=== PATIENT | female | born 1975 | race American Indian/Alaskan Native ===

== ENCOUNTER 2017-09-04 05:50 | Emergency (ER) | payer BC ==
[2017-09-04] MEDS ORDERED: Aspirin 81 MG Tab.Chew PO ONE (06:00)
[2017-09-04] MEDS ORDERED: Sodium Chloride 0.9% 10 ML Syringe FLUSH PRN (06:00)
[2017-09-04] MEDS ORDERED: Morphine 4 MG/ML Syringe IVPUSH PRN (06:00)
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
[2017-09-04] MEDS ORDERED: HYDROmorphone 0.5 MG/0.5 ML SYRINGE IVPUSH ONE (06:12)
--- NOTE | 2017-09-04 09:14 | CR ---
Chest: Portable view of the chest was obtained. Comparison: No prior chest x-ray. Heart size and mediastinum are normal. Lungs are clear. Bony structures are unremarkable. Impression: 1. Nothing acute is seen on portable chest x-ray. Diagnostic code #1
== END 2017-09-04 07:27 | disposition home or self-care (01) ==
LOC: JD.ED 05:50
DX: R09.1 Pleurisy (principal); E11.9 Type 2 diabetes mellitus without complications; I10 Essential (primary) hypertension; I25.10 Atherosclerotic heart disease of native coronary artery without angina pectoris; F17.200 Nicotine dependence, unspecified, uncomplicated; Z79.82 Long term (current) use of aspirin; Z79.899 Other long term (current) drug therapy; Z79.4 Long term (current) use of insulin
CPT/HCPCS: 36415; 71045; 80053; 84484; 84703; 85025; 85379; 93005; 96374; 99285; J1170; J7050; 93010; 99284-25

== ENCOUNTER 2018-07-30 16:41 | Emergency (ER) | payer BC ==
[2018-07-30] MEDS ORDERED: Sodium Chloride 0.9% 10 ML Syringe FLUSH PRN (17:09)
--- NOTE | 2018-07-30 18:28 | EDM.PDOC ---
ED HPI GENERAL MEDICAL PROBLEM - General Chief Complaint: Chest Pain Stated Complaint: [facility] Time Seen by Provider: 07/30/18 16:55 Source of Information: Reports: Patient History Limitations: Reports: No Limitations - History of Present Illness INITIAL COMMENTS - FREE TEXT/NARRATIVE: 42-year-old female arrives via [facility] for evaluation and treatment of chest pain. Patient reports on Saturday she started feeling ill with body aches. States that on Saturday morning she had some chest pain that was a sudden onset located on the left side of her chest. She states she has been using anxiety medication and and antacids but she has not felt any better. Patient reports today she was not feeling well with fatigue, body aches and decreased appetite. She reports then around 1430 today she developed sudden onset of chest pressure, dizziness, pressure in her head, lightheadedness, numbness and tingling to her left arm. She states that she felt she was "having a heart attack ". Patient does not have any cardiac history and has never had an OR previously. She is expressing current symptoms of chills, headaches and bodyaches. She denies any cough, syncope or vomiting. She denies any pain or swelling in her legs. She reports that she did feel nauseous. Patient received nitroglycerin, oxygen, aspirin and morphine by a [facility] and she reports that this has improved her symptoms. Patient was seen in the ER approximately 1 year ago with similar symptoms. Had a complete cardiac workup done; was diagnosed with pleurisy. She reports her symptoms today seem similar to about one year ago. Patient type II diabetic. Reports that her sugars have been running in the 190s to 250s. Patient is also a smoker and smokes 3 or 4 cigarettes a day. Left Upper Chest Pain Score (Numeric/FACES): 9 - Related Data Allergies Allergy/AdvReac Type Severity Reaction Status Date / Time No Known Allergies Allergy Verified 09/04/17 06:00 Home Meds: Home Meds ALPRAZolam [Alprazolam] 1 mg PO Q8HR PRN #20 tablet 09/04/17 [Rx] Aspirin [Halfprin] 81 mg PO DAILY 09/04/17 [History] Hydrocodone/Acetaminophen [Hydrocodon-Acetaminophen 5-325] 1 - 2 each PO Q6HR PRN #10 tablet 09/04/17 [Rx] Insulin Aspart Protam & Aspart [Novolog Mix 70-30 Flexpen Syrn] 5 units SQ TID 09/04/17 [History] Insulin Detemir [Levemir Flextouch] 32 unit SQ DAILY 09/04/17 [History] Lisinopril [Zestril] 10 mg PO DAILY 09/04/17 [History] Simvastatin [Zocor] 40 mg PO BEDTIME 09/04/17 [History] glipiZIDE [Glipizide Xl] 5 mg PO 09/04/17 [History] metFORMIN [Glucophage XR] 1,000 mg PO BIDMEALS 09/04/17 [History] Past Medical History Cardiovascular History: Reports: High Cholesterol, Hypertension Psychiatric History: Reports: Anxiety Endocrine/Metabolic History: Reports: Diabetes, Type I Social & Family History - Tobacco Use Smoking Status *Q: Current Every Day Smoker Years of Tobacco use: 25 Packs/Tins Daily: 0.4 - Recreational Drug Use Recreational Drug Use: No ED ROS GENERAL - Review of Systems Review Of Systems: See Below Constitutional: Reports: Chills, Fatigue, Other (Body aches). Denies: Fever Respiratory: Reports: Pleuritic Chest Pain. Denies: Cough Cardiovascular: Reports: Chest Pain, Lightheadedness. Denies: Syncope GI/Abdominal: Reports: Nausea. Denies: Abdominal Pain, Vomiting Neurological: Reports: Numbness (Left arm), Tingling (Left arm) ED EXAM, GENERAL - Physical Exam Exam: See Below Exam Limited By: No Limitations General Appearance: Alert, WD/WN, No Apparent Distress, Obese Ears: Normal External Exam, Normal Canal, Hearing Grossly Normal, Normal TMs Nose: Normal Inspection Throat/Mouth: Normal Inspection, Normal Lips, Normal Voice, No Airway Compromise Respiratory/Chest: No Respiratory Distress, Lungs Clear, Normal Breath Sounds Cardiovascular: Normal Peripheral Pulses, Regular Rate, Rhythm, No Murmur Neurological: Alert, Oriented, Normal Cognition Psychiatric: Normal Affect, Normal Mood Skin Exam: Warm, Dry, Normal Color EKG INTERPRETATION EKG Date: 07/30/18 Time: 16:45 Rhythm: NSR Rate (Beats/Min): 91 EKG Interpretation Comments: Normal sinus rhythm at 91 bpm. Initial poor R-wave progression. Mildly decreased full digital cortical leads. T-wave flattening in V3 through V6. Q waves in 3 and aVF consistent old inferior wall OR. QTC is mildly prolonged with a QTC of 474. Reviewed by myself and Dr. Walls. Course - Vital Signs Last Recorded V/S: Last Vital Signs Temp 98.6 F 07/30/18 16:41 Pulse 94 07/30/18 16:41 Resp 23 H 07/30/18 16:41 BP 148/96 H 07/30/18 16:41 Pulse Ox 93 L 07/30/18 16:41 - Orders/Labs/Meds Orders: Active Orders 24 hr Category Date Time Status Cardiac Monitoring [RC] . DIRECTED Care 07/30/18 17:09 Active EKG Documentation Completion [RC] ASDIRECTED Care 07/30/18 16:49 Active Peripheral IV Care [RC] . DIRECTED Care 07/30/18 17:10 Active Chest 2V [CR] Stat Exams 07/30/18 17:09 Taken Sodium Chloride 0.9% [Saline Flush] Med 07/30/18 17:09 Active 10 ml FLUSH ASDIRECTED PRN Peripheral IV Insertion Adult [OM.PC] Routine Oth 07/30/18 17:08 Ordered EKG 12 Lead [EK] Stat Ther 07/30/18 16:49 Ordered Medication Orders Sodium Chloride (Saline Flush) 10 ml FLUSH ASDIRECTED PRN PRN Reason: Keep Vein Open Last Admin: 07/30/18 17:14 Dose: 10 ml Labs: Laboratory Tests 07/30/18 07/30/18 07/30/18 Range/Units 17:20 17:20 17:20 WBC 6.73 (3.98-10.04) K/mm3 RBC 4.91 (3.98-5.22) M/mm3 Hgb 12.9 (11.2-15.7) gm/L Hct 39.7 (34.1-44.9) % MCV 80.9 (79.4-94.8) fl MCH 26.3 (25.6-32.2) pg MCHC 32.5 (32.2-35.5) g/dl RDW Std Deviation 44.2 (36.4-46.3) fL Plt Count 286 (182-369) K/mm3 MPV 9.3 L (9.4-12.3) fl Neut % (Auto) 74.2 H (34.0-71.1) % Lymph % (Auto) 15.8 L (19.3-51.7) % Ellis % (Auto) 7.4 (4.7-12.5) % Eos % (Auto) 1.9 (0.7-5.8) Baso % (Auto) 0.3 (0.1-1.2) % Neut # (Auto) 4.99 (1.56-6.13) K/mm3 Lymph # (Auto) 1.06 L (1.18-3.74) K/mm3 Ellis # (Auto) 0.50 H (0.24-0.36) K/mm3 Eos # (Auto) 0.13 (0.04-0.36) K/mm3 Baso # (Auto) 0.02 (0.01-0.08) K/mm3 D-Dimer, Quantitative 0.27 (0.19-0.50) mg/L Sodium 137 (136-145) mEq/L Potassium 4.3 (3.5-5.1) mEq/L Chloride 99 (98-107) mEq/L Carbon Dioxide 26 (21-32) mEq/L Anion Gap 16.3 H (5-15) BUN 12 (7-18) mg/dL Creatinine 0.9 (0.55-1.02) mg/dL Est Cr Clr Drug Dosing 86.84 mL/min Estimated GFR (MDRD) > 60 (>60) mL/min BUN/Creatinine Ratio 13.3 L (14-18) Glucose 237 H (74-106) mg/dL Calcium 9.4 (8.5-10.1) mg/dL Total Bilirubin 0.4 (0.2-1.0) mg/dL AST 113 H (15-37) U/L ALT 105 H (14-59) U/L Alkaline Phosphatase 82 (46-116) U/L CK-MB (CK-2) 0.9 (0-3.6) ng/ml Troponin I < 0.017 (0.00-0.056) ng/mL Total Protein 8.2 (6.4-8.2) g/dl Albumin 4.0 (3.4-5.0) g/dl Globulin 4.2 gm/dL Albumin/Globulin Ratio 1.0 (1-2) Meds: Medications Generic Name Dose Route Start Last Admin Trade Name Freq PRN Reason Stop Dose Admin Sodium Chloride 10 ml 07/30/18 17:09 07/30/18 17:14 Saline Flush FLUSH 10 ml ASDIRECTED PRN Administration Keep Vein Open Discontinued Medications Generic Name Dose Route Start Last Admin Trade Name Yoselin PRN Reason Stop Dose Admin Ketorolac Tromethamine 30 mg 07/30/18 19:28 07/30/18 19:31 Toradol IVPUSH 07/30/18 19:29 30 mg ONETIME ONE Administration - Radiology Interpretation Free Text/Narrative:: Chest x-ray, two-view shows no acute intrathoracic process. - Re-Assessments/Exams Free Text/Narrative Re-Assessment/Exam: 07/30/18 19:37 Reviewed the labs, EKG and chest x-ray with the patient. I do feel this is likely a viral upper respiratory infection and pleurisy causing her chest pain. Recommend NSAIDs. Will discharge home tonight. Discharge instructions as documented. Departure - Departure Time of Disposition: 19:38 Disposition: Home, Self-Care 01 Reason for Transfer *Q: Other Condition: Good Clinical Impression: Viral upper respiratory illness, Pleurisy Instructions: Viral Respiratory Infection, [id number], Pleurisy, [id number] Referrals: PCP,None [Primary Care Provider] - Forms: ED Department Discharge Additional Instructions: Recommend [id number] NSAIDs such as ibuprofen or Motrin. Take these with food as NSAIDs can be hard on your stomach. Recommend fluids such as Gatorade or Powerade. Follow-up with your primary care provider if your symptoms persist beyond 2 weeks. Please return to the ER if your symptoms change or worsen. - My Orders Last 24 Hours: My Active Orders 07/30/18 16:49 EKG Documentation Completion [RC] ASDIRECTED EKG 12 Lead [EK] Stat 07/30/18 17:08 Peripheral IV Insertion Adult [OM.PC] Routine 07/30/18 17:09 Cardiac Monitoring [RC] . DIRECTED Chest 2V [CR] Stat Sodium Chloride 0.9% [Saline Flush] 10 ml FLUSH ASDIRECTED PRN 07/30/18 17:10 Peripheral IV Care [RC] . DIRECTED - Assessment/Plan Last 24 Hours: My Active Orders 07/30/18 16:49 EKG Documentation Completion [RC] ASDIRECTED EKG 12 Lead [EK] Stat 07/30/18 17:08 Peripheral IV Insertion Adult [OM.PC] Routine 07/30/18 17:09 Cardiac Monitoring [RC] . DIRECTED Chest 2V [CR] Stat Sodium Chloride 0.9% [Saline Flush] 10 ml FLUSH ASDIRECTED PRN 07/30/18 17:10 Peripheral IV Care [RC] . DIRECTED
[2018-07-30] MEDS ORDERED: Ketorolac 30 MG/ML SDV IVPUSH ONE (19:28)
--- NOTE | 2018-07-31 08:34 | CR ---
Chest: Two views of the chest were obtained. Comparison: Prior chest x-ray of 09/04/17. Heart size and mediastinum are within normal limits. Lungs are clear. Bony structures are unremarkable. Surgical clips appear to be present within the upper right abdomen. Impression: 1. Nothing acute is appreciated on two-view chest x-ray. Diagnostic code #2
== END 2018-07-30 19:47 | disposition home or self-care (01) ==
LOC: JD.ED 16:41
DX: J06.9 Acute upper respiratory infection, unspecified (principal); R09.1 Pleurisy; F17.210 Nicotine dependence, cigarettes, uncomplicated; E10.9 Type 1 diabetes mellitus without complications; I10 Essential (primary) hypertension; E78.00 Pure hypercholesterolemia, unspecified; F41.9 Anxiety disorder, unspecified; Z79.82 Long term (current) use of aspirin; Z79.899 Other long term (current) drug therapy
CPT/HCPCS: 36415; 71046; 80053; 82553; 84484; 85025; 85379; 87804; 93005; 96374; 99285; J1885; 93010; 99284

== ENCOUNTER 2018-08-21 14:42 | Emergency (ER) | payer BC ==
--- NOTE | 2018-08-21 15:05 | EDM.PDOC ---
ED HPI GENERAL MEDICAL PROBLEM - General Chief Complaint: Abdominal Pain Stated Complaint: [facility] Time Seen by Provider: 08/21/18 15:04 Source of Information: Reports: Patient, RN Notes Reviewed - History of Present Illness INITIAL COMMENTS - FREE TEXT/NARRATIVE: 42-year-old female has been brought here [facility] for evaluation of abdominal pain. This started about 4 days ago and is been somewhat generalized but mostly upper mid abdomen. The pain is worsened over the last day or 2. She's had a lot of nausea but no vomiting. Has had also some episodes of diarrhea that started also shortly after the discomfort. That was quite watery for a couple of days and now some loose stools today. Appetite is markedly diminished. She states that there were get-togethers last weekend with family in high school graduation and there was food eaten that it then brought by various families she states a few other people are reported to also "have gotten sick with abdominal pain, nausea and diarrhea". She does have history of prior cholecystectomy. She has had some chills but no definite fever. Bilateral Upper Abdomen Pain Score (Numeric/FACES): 5 - Related Data Allergies Allergy/AdvReac Type Severity Reaction Status Date / Time No Known Allergies Allergy Verified 08/21/18 14:47 Home Meds: Home Meds ALPRAZolam [Alprazolam] 1 mg PO Q8HR PRN #20 tablet 09/04/17 [Rx] Aspirin [Halfprin] 81 mg PO DAILY 09/04/17 [History] Simvastatin [Zocor] 40 mg PO BEDTIME 09/04/17 [History] metFORMIN [Glucophage XR] 1,000 mg PO BIDMEALS 09/04/17 [History] Acetaminophen/HYDROcodone [[place] 325-5 MG] 1 tab PO Q6H PRN #20 tablet 08/21/18 [Rx] Cetirizine [ZyrTEC] 10 mg PO DAILY 08/21/18 [History] Enalapril [Vasotec] 10 mg PO DAILY 08/21/18 [History] Insulin Aspart [NovoLOG] 5 units SUBCUT TIDAC 08/21/18 [History] Liraglutide [Victoza] 1.8 mg SUBCUT DAILY 08/21/18 [History] Meloxicam 7.5 mg PO DAILY PRN 08/21/18 [History] Mirtazapine 45 mg PO QPM PRN 08/21/18 [History] Ondansetron [Zofran ODT] 4 mg PO Q6H PRN #10 tab.dis 08/21/18 [Rx] Past Medical History Cardiovascular History: Reports: High Cholesterol, Hypertension Gastrointestinal History: Reports: Cholelithiasis Psychiatric History: Reports: Anxiety Endocrine/Metabolic History: Reports: Diabetes, Type I - Past Surgical History GI Surgical History: Reports: Other (See Below) Other GI Surgeries/Procedures: removal of gall stones Social & Family History - Tobacco Use Smoking Status *Q: Current Some Day Smoker Years of Tobacco use: 20 Packs/Tins Daily: 0.1 - Caffeine Use Caffeine Use: Reports: Soda - Recreational Drug Use Recreational Drug Use: No ED ROS GENERAL - Review of Systems Review Of Systems: See Below Constitutional: Reports: Chills. Denies: Fever HEENT: Denies: Throat Pain Respiratory: Denies: Shortness of Breath Cardiovascular: Denies: Chest Pain GI/Abdominal: Reports: Abdominal Pain, Diarrhea, Nausea. Denies: Constipation, Hematochezia, Melena, Vomiting Musculoskeletal: Reports: No Symptoms Skin: Reports: No Symptoms Neurological: Reports: No Symptoms ED EXAM, GI/ABD - Physical Exam Exam: See Below General Appearance: Alert, Mild Distress (Patient did receive Zofran and Toradol whileen route here to [place]) Eyes: Bilateral: Normal Appearance Throat/Mouth: Normal Inspection, Normal Oropharynx Head: Atraumatic. No: Facial Swelling Neck: Supple, Full Range of Motion Respiratory/Chest: No Respiratory Distress, Lungs Clear, Normal Breath Sounds Cardiovascular: Regular Rate, Rhythm GI/Abdominal Exam: Tender (Upper mid abdomen and mid abdomen). No: Guarding, Rebound Back Exam: No: CVA Tenderness (L), CVA Tenderness (R) Extremities: Normal Inspection, Normal Range of Motion Neurological: Alert, Oriented, No Motor/Sensory Deficits Skin Exam: Warm, Dry, Normal Color Course - Vital Signs Last Recorded V/S: Last Vital Signs Temp 98.3 F 08/21/18 14:43 Pulse 81 08/21/18 14:43 Resp 16 08/21/18 14:43 BP 153/82 H 08/21/18 14:43 Pulse Ox 95 08/21/18 14:43 - Orders/Labs/Meds Orders: Active Orders 24 hr Category Date Time Status Peripheral IV Care [RC] . DIRECTED Care 08/21/18 15:18 Active Sodium Chloride 0.9% [Normal Saline] 1,000 ml Med 08/21/18 15:30 Active IV ONETIME Sodium Chloride 0.9% [Saline Flush] Med 08/21/18 15:17 Active 10 ml FLUSH ASDIRECTED PRN Peripheral IV Insertion Adult [OM.PC] Stat Oth 08/21/18 15:18 Ordered Medication Orders Sodium Chloride (Normal Saline) 1,000 mls @ 999 mls/hr IV ONETIME EMEKA Last Admin: 08/21/18 15:40 Dose: 999 mls/hr Sodium Chloride (Saline Flush) 10 ml FLUSH ASDIRECTED PRN PRN Reason: Keep Vein Open Last Admin: 08/21/18 17:55 Dose: 10 ml Admin: 08/21/18 15:40 Dose: 10 ml Labs: Laboratory Tests 08/21/18 08/21/18 Range/Units 15:35 15:35 WBC 4.76 (3.98-10.04) K/mm3 RBC 4.48 (3.98-5.22) M/mm3 Hgb 11.6 (11.2-15.7) gm/L Hct 36.6 (34.1-44.9) % MCV 81.7 (79.4-94.8) fl MCH 25.9 (25.6-32.2) pg MCHC 31.7 L (32.2-35.5) g/dl RDW Std Deviation 44.5 (36.4-46.3) fL Plt Count 258 (182-369) K/mm3 MPV 9.6 (9.4-12.3) fl Neut % (Auto) 67.5 (34.0-71.1) % Lymph % (Auto) 23.1 (19.3-51.7) % [place] % (Auto) 6.1 (4.7-12.5) % Eos % (Auto) 2.3 (0.7-5.8) Baso % (Auto) 0.4 (0.1-1.2) % Neut # (Auto) 3.21 (1.56-6.13) K/mm3 Lymph # (Auto) 1.10 L (1.18-3.74) K/mm3 [place] # (Auto) 0.29 (0.24-0.36) K/mm3 Eos # (Auto) 0.11 (0.04-0.36) K/mm3 Baso # (Auto) 0.02 (0.01-0.08) K/mm3 Sodium 135 L (136-145) mEq/L Potassium 3.8 (3.5-5.1) mEq/L Chloride 100 (98-107) mEq/L Carbon Dioxide 25 (21-32) mEq/L Anion Gap 13.8 (5-15) BUN 11 (7-18) mg/dL Creatinine 0.7 (0.55-1.02) mg/dL Est Cr Clr Drug Dosing 111.65 mL/min Estimated GFR (MDRD) > 60 (>60) mL/min BUN/Creatinine Ratio 15.7 (14-18) Glucose 307 H (74-106) mg/dL Calcium 8.5 (8.5-10.1) mg/dL Total Bilirubin 0.3 (0.2-1.0) mg/dL AST 131 H (15-37) U/L ALT 129 H (14-59) U/L Alkaline Phosphatase 82 (46-116) U/L Total Protein 7.1 (6.4-8.2) g/dl Albumin 3.3 L (3.4-5.0) g/dl Globulin 3.8 gm/dL Albumin/Globulin Ratio 0.9 L (1-2) Lipase 598 H (73-393) U/L Meds: Medications Generic Name Dose Route Start Last Admin Trade Name Freq PRN Reason Stop Dose Admin Sodium Chloride 1,000 mls @ 999 mls/hr 08/21/18 15:30 08/21/18 15:40 Normal Saline IV 999 mls/hr ONETIME EMEKA Administration Sodium Chloride 10 ml 08/21/18 15:17 08/21/18 17:55 Saline Flush FLUSH 10 ml ASDIRECTED PRN Administration Keep Vein Open Discontinued Medications Generic Name Dose Route Start Last Admin Trade Name Freq PRN Reason Stop Dose Admin Diatrizoate Meglum/Diatrizoate Sod 60 ml 08/21/18 17:43 08/21/18 17:55 Gastrografin 37% PO 08/21/18 17:44 60 ml ONETIME ONE Administration Hydromorphone HCl 0.5 mg 08/21/18 16:49 08/21/18 17:23 Dilaudid IVPUSH 08/21/18 16:50 0.5 mg ONETIME ONE Administration Iohexol 100 ml 08/21/18 17:42 08/21/18 17:55 Omnipaque-300 IVPUSH 08/21/18 17:43 100 ml ONETIME ONE Administration Metoclopramide HCl 5 mg 08/21/18 15:18 08/21/18 15:40 Reglan IVPUSH 08/21/18 15:19 5 mg ONETIME ONE Administration - Re-Assessments/Exams Free Text/Narrative Re-Assessment/Exam: 08/21/18 16:51 Lipase did come back elevated at 598, white blood count was normal AST and ALT very mildly elevated. Bilirubin 0.3. Other labs as documented. As of the elevated lipase have ordered abdominal CT with IV and oral contrast. 08/21/18 18:53 CT of abdomen do show fatty infiltration of the liver, no other acute findings. See radiology report for details. She does feel much better after medication received up at the [facility] prior to discharge and also the 5 mg morphine in route. We did give further 0.5 mg Dilaudid IV and also Reglan IV while here in the ED. She states her pain is almost completely gone. She's had no further nausea or vomiting while here in the ED. She does feel up to going home. Discharge instructions as documented. Departure - Departure Time of Disposition: 18:44 Disposition: Home, Self-Care 01 Condition: Fair Clinical Impression: Pancreatitis Qualifiers: Pancreatitis type: unspecified pancreatitis type Acute pancreatitis complication: no infection or necrosis Abdominal pain Qualifiers: Abdominal location: upper abdomen, unspecified Qualified Code(s): R10.10 - Upper abdominal pain, unspecified Diarrhea Qualifiers: Diarrhea type: unspecified type Qualified Code(s): R19.7 - Diarrhea, unspecified - Discharge Information Prescriptions: Acetaminophen/HYDROcodone [[place] 325-5 MG] 1 tab PO Q6H PRN #20 tablet PRN Reason: Pain Ondansetron [Zofran ODT] 4 mg PO Q6H PRN #10 tab.dis PRN Reason: Nausea/Vomiting Referrals: PCP,None [Primary Care Provider] - Forms: ED Department Discharge Additional Instructions: Rest, clear liquids until tomorrow afternoon, than very careful bland diet as tolerated, best to eat small amounts of food at a time only until pain resolving. Avoid milk and dairy products for now. Tylenol every 6-8 hours if needed for mild to moderate discomfort or hydrocodone if needed for more severe pain. Do not drive or work when taking hydrocodone. Do not take Tylenol and hydrocodone at the same time. Avoid all alcohol for now. Follow-up at the [facility] in about 4-5 days for recheck. Call for appointment. Return to ED as needed if symptoms worsening in any way. - My Orders Last 24 Hours: My Active Orders 08/21/18 15:17 Sodium Chloride 0.9% [Saline Flush] 10 ml FLUSH ASDIRECTED PRN 08/21/18 15:18 Peripheral IV Care [RC] . DIRECTED Peripheral IV Insertion Adult [OM.PC] Stat 08/21/18 15:30 Sodium Chloride 0.9% [Normal Saline] 1,000 ml IV ONETIME - Assessment/Plan Last 24 Hours: My Active Orders 08/21/18 15:17 Sodium Chloride 0.9% [Saline Flush] 10 ml FLUSH ASDIRECTED PRN 08/21/18 15:18 Peripheral IV Care [RC] . DIRECTED Peripheral IV Insertion Adult [OM.PC] Stat 08/21/18 15:30 Sodium Chloride 0.9% [Normal Saline] 1,000 ml IV ONETIME
[2018-08-21] MEDS ORDERED: Metoclopramide 10 MG/2 ML SDV IVPUSH ONE (15:18)
[2018-08-21] MEDS ORDERED: Sodium Chloride 0.9% 1,000 ML IV SCH (15:30)
[2018-08-21] MEDS: Sodium Chloride 0.9% 10 ML Syringe FLUSH PRN ×2 (15:40→17:55)
[2018-08-21] MEDS ORDERED: HYDROmorphone 0.5 MG/0.5 ML Syringe IVPUSH ONE (16:49)
[2018-08-21] MEDS ORDERED: Iohexol 647 MG/ML 100 ML Bottle IVPUSH ONE (17:42)
[2018-08-21] MEDS ORDERED: Diatrizoate Meglumine/Diatrizoate Sodium 37% 120 ML Bottle PO ONE (17:43)
--- NOTE | 2018-08-21 18:26 | CT ---
CT abdomen and pelvis Technique: Multiple axial sections were obtained from above the dome of the diaphragm inferiorly through the pubic symphysis. Intravenous contrast was utilized. Oral contrast also seen. Delayed images were obtained through the bladder. Comparison: No prior abdominal imaging is available. Findings: Slight bibasilar atelectasis is seen. Liver shows diffuse fatty infiltration. No focal abnormality is appreciated within the liver. Surgical clips are seen from prior cholecystectomy. Spleen appears within normal limits. Adrenal glands show no nodule. Pancreas appears within normal limits. No inflammatory change is seen around the pancreas. Kidneys show contrast enhancement without hydronephrosis or mass. Small cyst is noted within the mid left kidney measuring 1.3 cm. Kidneys otherwise appear normal. Delayed images shows contrast within the bladder. Abdominal aorta shows no aneurysm. No retroperitoneal adenopathy or mesenteric abnormalities are seen. Small fat-containing umbilical hernia is incidentally noted. No pelvic mass or adenopathy is seen. No free fluid or inflammatory change is noted. Appendix is not seen with certainty. Bone window settings were reviewed which appear within normal limits for the patient's age. Impression: 1. Fatty infiltration within the liver. Other incidental findings. 2. Nothing acute is appreciated on CT study of the abdomen and pelvis. Diagnostic code #2
== END 2018-08-21 18:57 | disposition home or self-care (01) ==
LOC: JD.ED 14:42
DX: K85.90 Acute pancreatitis without necrosis or infection, unspecified (principal); R19.7 Diarrhea, unspecified; I10 Essential (primary) hypertension; E10.9 Type 1 diabetes mellitus without complications; F41.9 Anxiety disorder, unspecified; F17.210 Nicotine dependence, cigarettes, uncomplicated; Z79.899 Other long term (current) drug therapy; Z79.82 Long term (current) use of aspirin; Z79.84 Long term (current) use of oral hypoglycemic drugs
CPT/HCPCS: 36415; 74177; 80053; 83690; 85025; 96361; 96374; 96375; 99284; J1170; J2765; J7040; Q9963; Q9967

== ENCOUNTER 2018-12-29 08:33 | Inpatient (IN) | payer BC ==
[~2018-12-29 08:33] MED LIST: Sodium Phosphate 30 MMOLE in Sodium Chloride 0.9% 250 ML IV PRN
[2018-12-29] MEDS ORDERED: FLU Vacc QS2019-20(6MOS+)/PF 60 MCG/0.5 ML SYRINGE IM ONE (09:00)
[2018-12-29] MEDS ORDERED: Ondansetron 4 MG/2 ML SDV IVPUSH ONE (09:11)
[2018-12-29] MEDS ORDERED: Sodium Chloride 0.9% 10 ML Syringe FLUSH PRN ×2 (09:11→09:23)
[2018-12-29] MEDS ORDERED: Sodium Chloride 0.9% 1,000 ML IV STA (09:11)
[2018-12-29] MEDS ORDERED: HYDROmorphone 1 MG/ML Syringe IVPUSH ONE (09:12)
[2018-12-29] MEDS ORDERED: Pantoprazole 40 MG Vial IVPUSH ONE (09:13)
[2018-12-29] MEDS ORDERED: Diatrizoate Meglumine/Diatrizoate Sodium 37% 120 ML Bottle PO ONE (09:23)
[2018-12-29] MEDS ORDERED: Iopamidol 612 MG/ML 100 ML Bottle IVPUSH ONE (09:23)
--- NOTE | 2018-12-29 10:43 | EDM.PDOC ---
ED HPI GENERAL MEDICAL PROBLEM - General Chief Complaint: Gastrointestinal Problem Stated Complaint: VOMITING AND DEHYDRATED Time Seen by Provider: 12/29/18 08:47 Source of Information: Reports: Patient, Family History Limitations: Reports: No Limitations - History of Present Illness INITIAL COMMENTS - FREE TEXT/NARRATIVE: The patient presents with RLQ abdominal pain, nausea and vomiting. This started about 3 days ago. She has been vomiting up dark emesis the past few times. She still has her appendix and gallbladder. She has no fever, chills, cough, congestion or runny nose. She has no dysuria or hematuria. She has no diarrhea. Last BM was yesterday. She is type II diabetic. Onset: Gradual Duration: Day(s): Location: Reports: Abdomen Quality: Reports: Sharp Severity: Moderate Improves with: Reports: None Worsens with: Reports: None Associated Symptoms: Reports: Loss of Appetite, Nausea/Vomiting. Denies: Chest Pain, Cough, Fever/Chills, Headaches, Shortness of Breath Bilateral Abdomen Pain Score (Numeric/FACES): 8 - Related Data Allergies Allergy/AdvReac Type Severity Reaction Status Date / Time No Known Allergies Allergy Verified 12/29/18 08:41 Home Meds: Home Meds Aspirin [Halfprin] 81 mg PO DAILY 09/04/17 [History] Simvastatin [Zocor] 40 mg PO BEDTIME 09/04/17 [History] metFORMIN [Glucophage XR] 1,000 mg PO BIDMEALS 09/04/17 [History] Enalapril [Vasotec] 10 mg PO DAILY 08/21/18 [History] Insulin Aspart [NovoLOG] 5 units SUBCUT TIDAC 08/21/18 [History] Liraglutide [Victoza] 1.8 mg SUBCUT DAILY 08/21/18 [History] Mirtazapine 45 mg PO QPM PRN 08/21/18 [History] Past Medical History Cardiovascular History: Reports: High Cholesterol, Hypertension Gastrointestinal History: Reports: Other (See Below) Other Gastrointestinal History: galstones [employer] History: Reports: Psychiatric History: Reports: Anxiety Endocrine/Metabolic History: Reports: Diabetes, Type I Social & Family History - Family History Family Medical History: Noncontributory - Tobacco Use Smoking Status *Q: Current Every Day Smoker Years of Tobacco use: 20 Packs/Tins Daily: 0.2 - Caffeine Use Caffeine Use: Reports: Soda - Recreational Drug Use Recreational Drug Use: No ED ROS GENERAL - Review of Systems Review Of Systems: See Below Constitutional: Reports: No Symptoms HEENT: Reports: No Symptoms Respiratory: Reports: No Symptoms Cardiovascular: Reports: No Symptoms Endocrine: Reports: No Symptoms GI/Abdominal: Reports: Abdominal Pain, Nausea, Vomiting : Reports: No Symptoms Musculoskeletal: Reports: No Symptoms Skin: Reports: No Symptoms ED EXAM, GI/ABD - Physical Exam Exam: See Below Exam Limited By: No Limitations General Appearance: Alert, No Apparent Distress Ears: Normal External Exam Nose: Normal Inspection Head: Atraumatic, Normocephalic Neck: Normal Inspection Respiratory/Chest: No Respiratory Distress, Lungs Clear, Normal Breath Sounds Cardiovascular: Regular Rate, Rhythm, No Edema, No Murmur GI/Abdominal Exam: Soft, No Organomegaly, No Mass, Tender Back Exam: Normal Inspection Extremities: Normal Inspection Neurological: Alert, Oriented, No Motor/Sensory Deficits Course - Vital Signs Last Recorded V/S: Last Vital Signs Temp 96.9 F 12/29/18 08:39 Pulse 127 H 12/29/18 08:39 Resp 20 12/29/18 08:57 BP 159/86 H 12/29/18 08:57 Pulse Ox 100 12/29/18 08:57 - Orders/Labs/Meds Orders: Active Orders 24 hr Category Date Time Status Patient Status [ADT] Routine ADT 12/29/18 12:41 Active Accu Check [Blood Glucose Check, Bedside] [RC] ONETIME Care 12/29/18 12:32 Active Communication Order [RC] ASDIRECTED Care 12/29/18 12:54 Active EKG Documentation Completion [RC] STAT Care 12/29/18 12:40 Active Influenza Vaccine Charge [RC] .DISCHARGE Care 12/29/18 08:49 Active Oxygen Therapy [RC] PRN Care 12/29/18 12:41 Active Peripheral IV Care [RC] . DIRECTED Care 12/29/18 09:11 Active Up With Assistance [RC] ASDIRECTED Care 12/29/18 12:40 Active VTE/DVT Education [RC] PER UNIT ROUTINE Care 12/29/18 12:41 Active Vital Signs [RC] Q4H Care 12/29/18 12:41 Active Nothing per Oral Now Diet [DIET] Diet 12/29/18 Dinner Active Chest 2V [CR] Stat Exams 12/29/18 12:40 Taken A1C [GLYCOSYLATED HEMOGLOBIN,HGBA1C] [CHEM] Stat Lab 12/29/18 12:50 Ordered BASIC METABOLIC PANEL,BMP [CHEM] Q4H Lab 12/29/18 16:40 Ordered BASIC METABOLIC PANEL,BMP [CHEM] Q4H Lab 12/29/18 20:40 Ordered BASIC METABOLIC PANEL,BMP [CHEM] Q4H Lab 12/30/18 00:40 Ordered BASIC METABOLIC PANEL,BMP [CHEM] Q4H Lab 12/30/18 04:40 Ordered BASIC METABOLIC PANEL,BMP [CHEM] Q4H Lab 12/30/18 08:40 Ordered BASIC METABOLIC PANEL,BMP [CHEM] Q4H Lab 12/30/18 12:40 Ordered BASIC METABOLIC PANEL,BMP [CHEM] Stat Lab 12/29/18 13:22 Received BLOOD GAS VENOUS [BG] Stat Lab 12/29/18 12:43 Ordered KETONES,BLOOD [CHEM] Q8H Lab 12/29/18 16:40 Ordered KETONES,BLOOD [CHEM] Q8H Lab 12/30/18 00:40 Ordered KETONES,BLOOD [CHEM] Q8 Lab 12/30/18 08:40 Ordered KETONES,BLOOD [CHEM] Q8H Lab 12/30/18 16:40 Ordered KETONES,BLOOD [CHEM] Q8 Lab 12/31/18 00:40 Ordered KETONES,BLOOD [CHEM] Q8 Lab 12/31/18 08:40 Ordered LIPID PANEL [CHEM] AM Lab 12/31/18 05:11 Ordered MAGNESIUM [CHEM] Q4 Lab 12/29/18 16:40 Ordered MAGNESIUM [CHEM] Q4 Lab 12/29/18 20:40 Ordered MAGNESIUM [CHEM] Q4 Lab 12/30/18 00:40 Ordered MAGNESIUM [CHEM] Q4 Lab 12/30/18 04:40 Ordered MAGNESIUM [CHEM] Q4 Lab 12/30/18 08:40 Ordered MAGNESIUM [CHEM] Q4 Lab 12/30/18 12:40 Ordered MAGNESIUM [CHEM] Stat Lab 12/29/18 13:22 Received PHOSPHORUS [CHEM] Q4H Lab 12/29/18 16:40 Ordered PHOSPHORUS [CHEM] Q4H Lab 12/29/18 20:40 Ordered PHOSPHORUS [CHEM] Q4H Lab 12/30/18 00:40 Ordered PHOSPHORUS [CHEM] Q4H Lab 12/30/18 04:40 Ordered PHOSPHORUS [CHEM] Q4H Lab 12/30/18 08:40 Ordered PHOSPHORUS [CHEM] Q4H Lab 12/30/18 12:40 Ordered PHOSPHORUS [CHEM] Stat Lab 12/29/18 13:22 Received Aspirin [Halfprin] Med 12/30/18 09:00 Active 81 mg PO DAILY Enalapril [Vasotec] Med 12/30/18 09:00 Active 10 mg PO DAILY Enoxaparin [Lovenox] Med 12/29/18 13:00 Active 40 mg SUBCUT DAILY Insulin Regular, Human [HumuLIN R] 100 unit Med 12/29/18 12:45 Active Sodium Chloride 0.9% [Normal Saline] 99 ml IV TITRATE Mirtazapine [Remeron] Med 12/29/18 18:00 Active 45 mg PO QPM PRN Sodium Chloride 0.9% [Saline Flush] Med 12/29/18 09:11 Active 10 ml FLUSH ASDIRECTED PRN ED Antiemetic Medication Reflex [OM.PC] Stat Oth 12/29/18 09:11 Ordered Peripheral IV Insertion Adult [OM.PC] Stat Oth 12/29/18 09:11 Ordered Medication Orders Aspirin (Halfprin) 81 mg PO DAILY [facility] Enalapril Maleate (Vasotec) 10 mg PO DAILY [facility] Enoxaparin Sodium (Lovenox) 40 mg SUBCUT DAILY [facility] Insulin Human Regular 100 unit (/ Sodium Chloride) 100 mls @ 8.89 mls/hr IV TITRATE [facility]; Protocol Mirtazapine (Remeron) 45 mg PO QPM PRN PRN Reason: Anxiety Sodium Chloride (Saline Flush) 10 ml FLUSH ASDIRECTED PRN PRN Reason: Keep Vein Open Labs: Laboratory Tests 12/29/18 12/29/18 12/29/18 Range/Units 09:25 09:25 09:25 WBC 7.23 (3.98-10.04) K/mm3 RBC 5.31 H (3.98-5.22) M/mm3 Hgb 14.1 D (11.2-15.7) gm/dl Hct 43.5 (34.1-44.9) % MCV 81.9 (79.4-94.8) fl MCH 26.6 (25.6-32.2) pg MCHC 32.4 (32.2-35.5) g/dl RDW Std Deviation 46.5 H (36.4-46.3) fL Plt Count 263 (182-369) K/mm3 MPV 9.9 (9.4-12.3) fl Neut % (Auto) 79.0 H (34.0-71.1) % Lymph % (Auto) 12.7 L (19.3-51.7) % [place] % (Auto) 7.9 (4.7-12.5) % Eos % (Auto) 0 L (0.7-5.8) Baso % (Auto) 0.4 (0.1-1.2) % Neut # (Auto) 5.71 (1.56-6.13) K/mm3 Lymph # (Auto) 0.92 L (1.18-3.74) K/mm3 [place] # (Auto) 0.57 H (0.24-0.36) K/mm3 Eos # (Auto) 0.00 L (0.04-0.36) K/mm3 Baso # (Auto) 0.03 (0.01-0.08) K/mm3 Manual Slide Review Abnormal smear VBG pH (7.30-7.40) Sodium 129 L (136-145) mEq/L Potassium 4.6 (3.5-5.1) mEq/L Chloride 93 L (98-107) mEq/L Carbon Dioxide 8 L* D (21-32) mEq/L Anion Gap 32.6 H (5-15) BUN 15 (7-18) mg/dL Creatinine 1.2 H (0.55-1.02) mg/dL Est Cr Clr Drug Dosing 64.48 mL/min Estimated GFR (MDRD) 50 (>60) mL/min BUN/Creatinine Ratio 12.5 L (14-18) Glucose 404 H (74-106) mg/dL POC Glucose (70-105) mg/dL Serum Osmolality (280-300) mosm/kg Lactic Acid (0.4-2.0) mmol/L Calcium 10.0 D (8.5-10.1) mg/dL Total Bilirubin 1.1 H (0.2-1.0) mg/dL AST 79 H (15-37) U/L ALT 113 H (14-59) U/L Alkaline Phosphatase 116 (46-116) U/L Total Protein 9.8 H (6.4-8.2) g/dl Albumin 4.7 (3.4-5.0) g/dl Globulin 5.1 gm/dL Albumin/Globulin Ratio 0.9 L (1-2) Lipase 233 (73-393) U/L HCG, Qual Negative (NEGATIVE) Urine Color (Yellow) Urine Appearance (Clear) Urine pH (5.0-8.0) Ur Specific [place] (1.005-1.030) Urine Protein (Negative) Urine Glucose (UA) (Negative) Urine Ketones (Negative) Urine Occult Blood (Negative) Urine Nitrite (Negative) Urine Bilirubin (Negative) Urine Urobilinogen (0.2-1.0) Ur Leukocyte Esterase (Negative) Urine RBC (0-5) /hpf Urine WBC (0-5) /hpf Ur Squamous Epith Cells (0-5) /hpf Urine Bacteria (FEW) /hpf Urine Mucus (FEW) /hpf Ketones (0.0-0.3) mM 12/29/18 12/29/18 12/29/18 Range/Units 09:25 09:25 10:50 WBC (3.98-10.04) K/mm3 RBC (3.98-5.22) M/mm3 Hgb (11.2-15.7) gm/dl Hct (34.1-44.9) % MCV (79.4-94.8) fl MCH (25.6-32.2) pg MCHC (32.2-35.5) g/dl RDW Std Deviation (36.4-46.3) fL Plt Count (182-369) K/mm3 MPV (9.4-12.3) fl Neut % (Auto) (34.0-71.1) % Lymph % (Auto) (19.3-51.7) % [place] % (Auto) (4.7-12.5) % Eos % (Auto) (0.7-5.8) Baso % (Auto) (0.1-1.2) % Neut # (Auto) (1.56-6.13) K/mm3 Lymph # (Auto) (1.18-3.74) K/mm3 [place] # (Auto) (0.24-0.36) K/mm3 Eos # (Auto) (0.04-0.36) K/mm3 Baso # (Auto) (0.01-0.08) K/mm3 Manual Slide Review VBG pH (7.30-7.40) Sodium (136-145) mEq/L Potassium (3.5-5.1) mEq/L Chloride (98-107) mEq/L Carbon Dioxide (21-32) mEq/L Anion Gap (5-15) BUN (7-18) mg/dL Creatinine (0.55-1.02) mg/dL Est Cr Clr Drug Dosing mL/min Estimated GFR (MDRD) (>60) mL/min BUN/Creatinine Ratio (14-18) Glucose (74-106) mg/dL POC Glucose (70-105) mg/dL Serum Osmolality 319 H (280-300) mosm/kg Lactic Acid (0.4-2.0) mmol/L Calcium (8.5-10.1) mg/dL Total Bilirubin (0.2-1.0) mg/dL AST (15-37) U/L ALT (14-59) U/L Alkaline Phosphatase (46-116) U/L Total Protein (6.4-8.2) g/dl Albumin (3.4-5.0) g/dl Globulin gm/dL Albumin/Globulin Ratio (1-2) Lipase (73-393) U/L HCG, Qual (NEGATIVE) Urine Color Yellow (Yellow) Urine Appearance Clear (Clear) Urine pH 5.5 (5.0-8.0) Ur Specific [place] > or = 1.030 (1.005-1.030) Urine Protein 2+ H (Negative) Urine Glucose (UA) 2+ H (Negative) Urine Ketones 4+ H (Negative) Urine Occult Blood 1+ H (Negative) Urine Nitrite Negative (Negative) Urine Bilirubin 1+ H (Negative) Urine Urobilinogen 0.2 (0.2-1.0) Ur Leukocyte Esterase Negative (Negative) Urine RBC 0-5 (0-5) /hpf Urine WBC 0-5 (0-5) /hpf Ur Squamous Epith Cells 5-10 H (0-5) /hpf Urine Bacteria Few (FEW) /hpf Urine Mucus Few (FEW) /hpf Ketones 8.55 (0.0-0.3) mM 12/29/18 12/29/18 12/29/18 Range/Units 11:20 12:34 12:57 WBC (3.98-10.04) K/mm3 RBC (3.98-5.22) M/mm3 Hgb (11.2-15.7) gm/dl Hct (34.1-44.9) % MCV (79.4-94.8) fl MCH (25.6-32.2) pg MCHC (32.2-35.5) g/dl RDW Std Deviation (36.4-46.3) fL Plt Count (182-369) K/mm3 MPV (9.4-12.3) fl Neut % (Auto) (34.0-71.1) % Lymph % (Auto) (19.3-51.7) % [place] % (Auto) (4.7-12.5) % Eos % (Auto) (0.7-5.8) Baso % (Auto) (0.1-1.2) % Neut # (Auto) (1.56-6.13) K/mm3 Lymph # (Auto) (1.18-3.74) K/mm3 [place] # (Auto) (0.24-0.36) K/mm3 Eos # (Auto) (0.04-0.36) K/mm3 Baso # (Auto) (0.01-0.08) K/mm3 Manual Slide Review VBG pH 7.09 L (7.30-7.40) Sodium (136-145) mEq/L Potassium (3.5-5.1) mEq/L Chloride (98-107) mEq/L Carbon Dioxide (21-32) mEq/L Anion Gap (5-15) BUN (7-18) mg/dL Creatinine (0.55-1.02) mg/dL Est Cr Clr Drug Dosing mL/min Estimated GFR (MDRD) (>60) mL/min BUN/Creatinine Ratio (14-18) Glucose (74-106) mg/dL POC Glucose 303 H (70-105) mg/dL Serum Osmolality (280-300) mosm/kg Lactic Acid 0.7 (0.4-2.0) mmol/L Calcium (8.5-10.1) mg/dL Total Bilirubin (0.2-1.0) mg/dL AST (15-37) U/L ALT (14-59) U/L Alkaline Phosphatase (46-116) U/L Total Protein (6.4-8.2) g/dl Albumin (3.4-5.0) g/dl Globulin gm/dL Albumin/Globulin Ratio (1-2) Lipase (73-393) U/L HCG, Qual (NEGATIVE) Urine Color (Yellow) Urine Appearance (Clear) Urine pH (5.0-8.0) Ur Specific [place] (1.005-1.030) Urine Protein (Negative) Urine Glucose (UA) (Negative) Urine Ketones (Negative) Urine Occult Blood (Negative) Urine Nitrite (Negative) Urine Bilirubin (Negative) Urine Urobilinogen (0.2-1.0) Ur Leukocyte Esterase (Negative) Urine RBC (0-5) /hpf Urine WBC (0-5) /hpf Ur Squamous Epith Cells (0-5) /hpf Urine Bacteria (FEW) /hpf Urine Mucus (FEW) /hpf Ketones (0.0-0.3) mM 12/29/18 Range/Units 13:41 WBC (3.98-10.04) K/mm3 RBC (3.98-5.22) M/mm3 Hgb (11.2-15.7) gm/dl Hct (34.1-44.9) % MCV (79.4-94.8) fl MCH (25.6-32.2) pg MCHC (32.2-35.5) g/dl RDW Std Deviation (36.4-46.3) fL Plt Count (182-369) K/mm3 MPV (9.4-12.3) fl Neut % (Auto) (34.0-71.1) % Lymph % (Auto) (19.3-51.7) % [place] % (Auto) (4.7-12.5) % Eos % (Auto) (0.7-5.8) Baso % (Auto) (0.1-1.2) % Neut # (Auto) (1.56-6.13) K/mm3 Lymph # (Auto) (1.18-3.74) K/mm3 [place] # (Auto) (0.24-0.36) K/mm3 Eos # (Auto) (0.04-0.36) K/mm3 Baso # (Auto) (0.01-0.08) K/mm3 Manual Slide Review VBG pH (7.30-7.40) Sodium (136-145) mEq/L Potassium (3.5-5.1) mEq/L Chloride (98-107) mEq/L Carbon Dioxide (21-32) mEq/L Anion Gap (5-15) BUN (7-18) mg/dL Creatinine (0.55-1.02) mg/dL Est Cr Clr Drug Dosing mL/min Estimated GFR (MDRD) (>60) mL/min BUN/Creatinine Ratio (14-18) Glucose (74-106) mg/dL POC Glucose 298 H (70-105) mg/dL Serum Osmolality (280-300) mosm/kg Lactic Acid (0.4-2.0) mmol/L Calcium (8.5-10.1) mg/dL Total Bilirubin (0.2-1.0) mg/dL AST (15-37) U/L ALT (14-59) U/L Alkaline Phosphatase (46-116) U/L Total Protein (6.4-8.2) g/dl Albumin (3.4-5.0) g/dl Globulin gm/dL Albumin/Globulin Ratio (1-2) Lipase (73-393) U/L HCG, Qual (NEGATIVE) Urine Color (Yellow) Urine Appearance (Clear) Urine pH (5.0-8.0) Ur Specific [place] (1.005-1.030) Urine Protein (Negative) Urine Glucose (UA) (Negative) Urine Ketones (Negative) Urine Occult Blood (Negative) Urine Nitrite (Negative) Urine Bilirubin (Negative) Urine Urobilinogen (0.2-1.0) Ur Leukocyte Esterase (Negative) Urine RBC (0-5) /hpf Urine WBC (0-5) /hpf Ur Squamous Epith Cells (0-5) /hpf Urine Bacteria (FEW) /hpf Urine Mucus (FEW) /hpf Ketones (0.0-0.3) mM Meds: Medications Generic Name Dose Route Start Last Admin Trade Name Freq PRN Reason Stop Dose Admin Aspirin 81 mg 12/30/18 09:00 Halfprin PO DAILY [facility] Enalapril Maleate 10 mg 12/30/18 09:00 Vasotec PO DAILY [facility] Enoxaparin Sodium 40 mg 12/29/18 13:00 Lovenox SUBCUT DAILY [facility] Insulin Human Regular 100 unit 100 mls @ 8.89 mls/hr 12/29/18 12:45 / Sodium Chloride IV TITRATE [facility] Protocol 0.1 UNITS/KG/HR Mirtazapine 45 mg 12/29/18 18:00 Remeron PO QPM PRN Anxiety Sodium Chloride 10 ml 12/29/18 09:11 Saline Flush FLUSH ASDIRECTED PRN Keep Vein Open Discontinued Medications Generic Name Dose Route Start Last Admin Trade Name Freq PRN Reason Stop Dose Admin Diatrizoate Meglum/Diatrizoate Sod 120 ml 12/29/18 09:23 12/29/18 11:05 Gastrografin 37% PO 12/29/18 09:24 90 ml ONETIME ONE Administration Hydromorphone HCl 1 mg 12/29/18 09:12 12/29/18 09:28 Dilaudid IVPUSH 12/29/18 09:13 1 mg ONETIME ONE Administration Sodium Chloride 1,000 mls @ 1,000 mls/hr 12/29/18 09:11 12/29/18 09:38 Normal Saline IV 12/29/18 10:10 1,000 mls/hr .BOLUS STA Administration Lactated Ringer's 1,000 mls @ 1,000 mls/hr 12/29/18 10:47 12/29/18 10:58 Ringers, Lactated IV 12/29/18 11:46 1,000 mls/hr .BOLUS ONE Administration Lactated Ringer's 1,000 mls @ 1,000 mls/hr 12/29/18 12:33 12/29/18 13:05 Ringers, Lactated IV 12/29/18 13:32 1,000 mls/hr .BOLUS ONE Administration Influenza Virus Vaccine 1 each 12/29/18 08:49 Pharmacy To Dose - Influenza Vaccine IM 12/29/18 08:50 ONETIME ONE Influenza Virus Vaccine 60 mcg 12/29/18 09:00 Fluzone Quad [id number] Syringe IM 12/29/18 09:01 .ONCE ONE Insulin Human Regular 8 unit 12/29/18 12:59 12/29/18 13:44 Humulin R IV 12/29/18 13:00 Not Given ONETIME ONE Insulin Human Regular 8 unit 12/29/18 13:43 12/29/18 13:45 Humulin R SUBCUT 12/29/18 13:44 8 units ONETIME ONE Administration Iopamidol 100 ml 12/29/18 09:23 12/29/18 11:05 Isovue-300 (61%) IVPUSH 12/29/18 09:24 100 ml ONETIME ONE Administration Ondansetron HCl 4 mg 12/29/18 09:11 12/29/18 09:25 Zofran IVPUSH 12/29/18 09:12 4 mg ONETIME ONE Administration Pantoprazole Sodium 80 mg 12/29/18 09:13 12/29/18 09:30 Protonix Iv IVPUSH 12/29/18 09:14 80 mg BOLUS ONE Administration Sodium Chloride 10 ml 12/29/18 09:23 12/29/18 11:05 Saline Flush FLUSH 10 ml ONETIME PRN Administration IV FLUSH - Re-Assessments/Exams Free Text/Narrative Re-Assessment/Exam: 12/29/18 10:44 I ordered an IV NS 1L bolus, zofran 4mg IV, dilaudid 1mg IV, labs, UA and a CT of her abdomen and pelvis. Her CBC looks good. Her Na is low at 129. Her K is normal at 4.6. Her anion gap is elevated at 32.6. Her CO2 is low a 8. Her creatinine is elevated at 1.2. Her glucose is 404. Her total bili is 1.1. Her AST is elevated at 70. Her ALT is elevated at 113. Her lipase is normal. Her pH was low at 7.09. Her serum ketones are elevated at 8.55. Her CT shows fatty infiltration within the liver. Other findings as noted above which are felt to be incidental and stable. Mild increased stool within the colon. Nothing acute is appreciated on CT study of the abdomen and pelvis. She is in DKA. I have ordered another liter of LR and a 3rd one after that. I called Dr North and she came to see the patient and admit. Departure - Departure Time of Disposition: 14:00 Disposition: Admitted As Inpatient 68 Condition: Serious Clinical Impression: Hyponatremia DKA (diabetic ketoacidoses) Qualifiers: Diabetes mellitus type: type 1 Diabetes mellitus complication detail: without coma Qualified Code(s): E10.10 - Type 1 diabetes mellitus with ketoacidosis without coma Abdominal pain Qualifiers: Abdominal location: upper abdomen, unspecified Qualified Code(s): R10.10 - Upper abdominal pain, unspecified Nausea and vomiting Qualifiers: Vomiting type: unspecified Vomiting Intractability: non-intractable Qualified Code(s): R11.2 - Nausea with vomiting, unspecified - Discharge Information Referrals: PCP,Not In Area [Primary Care Provider] - Forms: ED Department Discharge - My Orders Last 24 Hours: My Active Orders 12/29/18 08:49 Influenza Vaccine Charge [RC] .DISCHARGE 12/29/18 09:11 Peripheral IV Care [RC] . DIRECTED Sodium Chloride 0.9% [Saline Flush] 10 ml FLUSH ASDIRECTED PRN ED Antiemetic Medication Reflex [OM.PC] Stat Peripheral IV Insertion Adult [OM.PC] Stat 12/29/18 12:32 Accu Check [Blood Glucose Check, Bedside] [RC] ONETIME 12/29/18 12:45 Insulin Regular, Human [HumuLIN R] 100 unit Sodium Chloride 0.9% [Normal Saline] 99 ml IV TITRATE 12/29/18 13:22 MAGNESIUM [CHEM] Stat - Assessment/Plan Last 24 Hours: My Active Orders 12/29/18 08:49 Influenza Vaccine Charge [RC] .DISCHARGE 12/29/18 09:11 Peripheral IV Care [RC] . DIRECTED Sodium Chloride 0.9% [Saline Flush] 10 ml FLUSH ASDIRECTED PRN ED Antiemetic Medication Reflex [OM.PC] Stat Peripheral IV Insertion Adult [OM.PC] Stat 12/29/18 12:32 Accu Check [Blood Glucose Check, Bedside] [RC] ONETIME 12/29/18 12:45 Insulin Regular, Human [HumuLIN R] 100 unit Sodium Chloride 0.9% [Normal Saline] 99 ml IV TITRATE 12/29/18 13:22 MAGNESIUM [CHEM] Stat
[2018-12-29] MEDS ORDERED: Lactated Ringers 1,000 ML IV ONE ×2 (10:47→12:33)
--- NOTE | 2018-12-29 11:50 | CT ---
CT abdomen and pelvis Technique: Multiple axial sections were obtained from above the dome of the diaphragm inferiorly through the pubic symphysis. Intravenous and oral contrast was utilized. Delayed images were also obtained through the bladder. Comparison: Prior CT abdomen and pelvis study of 08/21/18. Liver shows diffuse fatty infiltration. Surgical clips are seen from prior cholecystectomy. Visualized lung bases are clear. Spleen appears within normal limits. Adrenal glands show no nodule. Pancreas is within normal limits. Kidneys show symmetric contrast enhancement. Low-density finding is noted within the left kidney measuring 1.5 cm in size which is felt compatible with a renal cyst. No additional abnormality is appreciated within the kidneys. Aorta shows no aneurysm. No retroperitoneal adenopathy or mesenteric abnormalities are seen. Small fat-containing umbilical hernia is noted. Appendix not visualized with certainty. No pelvic mass or adenopathy is seen. Mild increased stool is noted within the colon. Delayed images show contrast within the distal ureters and within the bladder. Bone window settings were reviewed which appear within normal limits for the patient's age. Impression: 1. Fatty infiltration within the liver. Other findings as noted above which are felt to be incidental and stable. 2. Mild increased stool within the colon. 3. Nothing acute is appreciated on CT study of the abdomen and pelvis. Diagnostic code #2
[2018-12-29] MEDS ORDERED: Insulin Regular, Human 100 Units/ML 3 ML Vial IV ONE (12:59)
--- NOTE | 2018-12-29 13:29 | PCM.HP.2 ---
H&P History of Present Illness - General Date of Service: 12/29/18 Admit Problem/Dx: Admission Diagnosis/Problem Admission Diagnosis/Problem Diabetic ketoacidosis - History of Present Illness Other HPI/Comments: Nausea and vomiting for 2 days, constantly, unable to keep anything down. Aa per patient on Saturday morning she was feeling ok and towards the afternoon she started feeling nauseous and vomiting, she was able to sleep. On Saturday woke up with same symptoms and was vomiting on and off the whole day, no hematemesis. During the evening she stopped vomiting but continued to have dry heaving until 4AM when she had an episode of coffee ground emesis after she lay down and was unable to sleep. This morning at AM started aving nausea and vomiting of coffee ground vomiting x 1 for which she decided to come to the ED for further evaluation. Once in the ED she had another vomiting episode. Associated with abdominal pain, dizziness, headaches, diaphoresis, shortness of breath, chest discomfort with vomiting. Denies association with syncopal episode, confusion, fever, chills, sore throat , itchy eyes or drainage, ear pain, cough, sputum, palpitations, dysuria, frequency, urgency, diarrhea or constipation, rashes. Diagnosed with bronchitis last week, given ATB, augmentin for 10 days (Tanesha) and diabetic cough syrup, symptoms went away Saturday and started day prior to MD consultation. No flu or pneumonia shot. Compliant with insulin and Victoza, except for Saturday and Saturday. Last HbA1c- 10, 1 month ago, verbal report. Glucose at home ranges 200-220, fasting Diagnosed with diabetes at age 32. HTN DLD Bilateral Abdomen Pain Score (Numeric/FACES): 8 - Related Data Allergies/Adverse Reactions: Allergies Allergy/AdvReac Type Severity Reaction Status Date / Time No Known Allergies Allergy Verified 12/29/18 08:41 Home Medications: Home Meds Aspirin [Halfprin] 81 mg PO DAILY 09/04/17 [History] Simvastatin [Zocor] 40 mg PO BEDTIME 09/04/17 [History] metFORMIN [Glucophage XR] 1,000 mg PO BIDMEALS 09/04/17 [History] Enalapril [Vasotec] 10 mg PO DAILY 08/21/18 [History] Insulin Aspart [NovoLOG] 5 units SUBCUT TIDAC 08/21/18 [History] Liraglutide [Victoza] 1.8 mg SUBCUT DAILY 08/21/18 [History] Mirtazapine 45 mg PO QPM PRN 08/21/18 [History] Past Medical History Cardiovascular History: Reports: High Cholesterol, Hypertension Gastrointestinal History: Reports: Other (See Below) Other Gastrointestinal History: galstones [employer] History: Reports: Psychiatric History: Reports: Anxiety Endocrine/Metabolic History: Reports: Diabetes, Type I Social & Family History - Family History Family Medical History: Noncontributory - Tobacco Use Smoking Status *Q: Current Every Day Smoker Years of Tobacco use: 20 Packs/Tins Daily: 0.2 - Caffeine Use Caffeine Use: Reports: Soda - Recreational Drug Use Recreational Drug Use: No H&P Review of Systems - Review of Systems: General: Reports: Chills, Malaise, Weakness, Fatigue, Night Sweats, Decreased Appetite. Denies: Fever HEENT: Reports: Headaches, Rhinitis, Sinus Congestion. Denies: Ear Pain, Eye Pain, Sore Throat Pulmonary: Reports: Shortness of Breath, Wheezing, Cough, Sputum. Denies: Hemoptysis Cardiovascular: Reports: Orthopnea. Denies: Chest Pain, Palpitations, Dyspnea on Exertion, PND, Edema, Lightheadedness, Syncope Gastrointestinal: Reports: Abdominal Pain, Anorexia, Decreased Appetite, Hematemesis. Denies: Black Stool, Bloody Stool, Constipation, Diarrhea, Difficulty Swallowing, Distension, Flatus, Hematochezia Genitourinary: Denies: Dysuria, Frequency, Burning, Pain, Urgency, Incontinence Musculoskeletal: Reports: Shoulder Pain, Back Pain. Denies: Neck Pain, Arm Pain , Hand Pain, Leg Pain, Foot Pain, Joint Pain, Joint Swelling Skin: Reports: Diaphoresis. Denies: Cyanosis, Jaundice, Mottled, Pallor, Dryness, Erythema, Wound Psychiatric: Reports: Anxiety. Denies: Depression, Suicidal Ideation Neurological: Reports: Dizziness, Headache. Denies: Confusion, Numbness Exam - Vital Signs Vital Signs: Last Vital Signs Temp 36.1 C 12/29/18 08:39 Pulse 127 H 12/29/18 08:39 Resp 20 12/29/18 08:57 BP 159/86 H 12/29/18 08:57 Pulse Ox 100 12/29/18 08:57 Weight: 88.904 kg - Patient Data Lab Results Last 24 hrs: Laboratory Results - last 24 hr 12/29/18 12/29/18 12/29/18 Range/Units 09:25 09:25 09:25 WBC 7.23 (3.98-10.04) K/mm3 RBC 5.31 H (3.98-5.22) M/mm3 Hgb 14.1 D (11.2-15.7) gm/dl Hct 43.5 (34.1-44.9) % MCV 81.9 (79.4-94.8) fl MCH 26.6 (25.6-32.2) pg MCHC 32.4 (32.2-35.5) g/dl RDW Std Deviation 46.5 H (36.4-46.3) fL Plt Count 263 (182-369) K/mm3 MPV 9.9 (9.4-12.3) fl Neut % (Auto) 79.0 H (34.0-71.1) % Lymph % (Auto) 12.7 L (19.3-51.7) % [place] % (Auto) 7.9 (4.7-12.5) % Eos % (Auto) 0 L (0.7-5.8) Baso % (Auto) 0.4 (0.1-1.2) % Neut # (Auto) 5.71 (1.56-6.13) K/mm3 Lymph # (Auto) 0.92 L (1.18-3.74) K/mm3 [place] # (Auto) 0.57 H (0.24-0.36) K/mm3 Eos # (Auto) 0.00 L (0.04-0.36) K/mm3 Baso # (Auto) 0.03 (0.01-0.08) K/mm3 Manual Slide Review Abnormal smear VBG pH (7.30-7.40) Sodium 129 L (136-145) mEq/L Potassium 4.6 (3.5-5.1) mEq/L Chloride 93 L (98-107) mEq/L Carbon Dioxide 8 L* D (21-32) mEq/L Anion Gap 32.6 H (5-15) BUN 15 (7-18) mg/dL Creatinine 1.2 H (0.55-1.02) mg/dL Est Cr Clr Drug Dosing 64.48 mL/min Estimated GFR (MDRD) 50 (>60) mL/min BUN/Creatinine Ratio 12.5 L (14-18) Glucose 404 H (74-106) mg/dL Serum Osmolality (280-300) mosm/kg Calcium 10.0 D (8.5-10.1) mg/dL Total Bilirubin 1.1 H (0.2-1.0) mg/dL AST 79 H (15-37) U/L ALT 113 H (14-59) U/L Alkaline Phosphatase 116 (46-116) U/L Total Protein 9.8 H (6.4-8.2) g/dl Albumin 4.7 (3.4-5.0) g/dl Globulin 5.1 gm/dL Albumin/Globulin Ratio 0.9 L (1-2) Lipase 233 (73-393) U/L HCG, Qual Negative (NEGATIVE) Urine Color (Yellow) Urine Appearance (Clear) Urine pH (5.0-8.0) Ur Specific [place] (1.005-1.030) Urine Protein (Negative) Urine Glucose (UA) (Negative) Urine Ketones (Negative) Urine Occult Blood (Negative) Urine Nitrite (Negative) Urine Bilirubin (Negative) Urine Urobilinogen (0.2-1.0) Ur Leukocyte Esterase (Negative) Urine RBC (0-5) /hpf Urine WBC (0-5) /hpf Ur Squamous Epith Cells (0-5) /hpf Urine Bacteria (FEW) /hpf Urine Mucus (FEW) /hpf Ketones (0.0-0.3) mM 12/29/18 12/29/18 12/29/18 Range/Units 09:25 09:25 10:50 WBC (3.98-10.04) K/mm3 RBC (3.98-5.22) M/mm3 Hgb (11.2-15.7) gm/dl Hct (34.1-44.9) % MCV (79.4-94.8) fl MCH (25.6-32.2) pg MCHC (32.2-35.5) g/dl RDW Std Deviation (36.4-46.3) fL Plt Count (182-369) K/mm3 MPV (9.4-12.3) fl Neut % (Auto) (34.0-71.1) % Lymph % (Auto) (19.3-51.7) % [place] % (Auto) (4.7-12.5) % Eos % (Auto) (0.7-5.8) Baso % (Auto) (0.1-1.2) % Neut # (Auto) (1.56-6.13) K/mm3 Lymph # (Auto) (1.18-3.74) K/mm3 [place] # (Auto) (0.24-0.36) K/mm3 Eos # (Auto) (0.04-0.36) K/mm3 Baso # (Auto) (0.01-0.08) K/mm3 Manual Slide Review VBG pH (7.30-7.40) Sodium (136-145) mEq/L Potassium (3.5-5.1) mEq/L Chloride (98-107) mEq/L Carbon Dioxide (21-32) mEq/L Anion Gap (5-15) BUN (7-18) mg/dL Creatinine (0.55-1.02) mg/dL Est Cr Clr Drug Dosing mL/min Estimated GFR (MDRD) (>60) mL/min BUN/Creatinine Ratio (14-18) Glucose (74-106) mg/dL Serum Osmolality 319 H (280-300) mosm/kg Calcium (8.5-10.1) mg/dL Total Bilirubin (0.2-1.0) mg/dL AST (15-37) U/L ALT (14-59) U/L Alkaline Phosphatase (46-116) U/L Total Protein (6.4-8.2) g/dl Albumin (3.4-5.0) g/dl Globulin gm/dL Albumin/Globulin Ratio (1-2) Lipase (73-393) U/L HCG, Qual (NEGATIVE) Urine Color Yellow (Yellow) Urine Appearance Clear (Clear) Urine pH 5.5 (5.0-8.0) Ur Specific [place] > or = 1.030 (1.005-1.030) Urine Protein 2+ H (Negative) Urine Glucose (UA) 2+ H (Negative) Urine Ketones 4+ H (Negative) Urine Occult Blood 1+ H (Negative) Urine Nitrite Negative (Negative) Urine Bilirubin 1+ H (Negative) Urine Urobilinogen 0.2 (0.2-1.0) Ur Leukocyte Esterase Negative (Negative) Urine RBC 0-5 (0-5) /hpf Urine WBC 0-5 (0-5) /hpf Ur Squamous Epith Cells 5-10 H (0-5) /hpf Urine Bacteria Few (FEW) /hpf Urine Mucus Few (FEW) /hpf Ketones 8.55 (0.0-0.3) mM 12/29/18 Range/Units 11:20 WBC (3.98-10.04) K/mm3 RBC (3.98-5.22) M/mm3 Hgb (11.2-15.7) gm/dl Hct (34.1-44.9) % MCV (79.4-94.8) fl MCH (25.6-32.2) pg MCHC (32.2-35.5) g/dl RDW Std Deviation (36.4-46.3) fL Plt Count (182-369) K/mm3 MPV (9.4-12.3) fl Neut % (Auto) (34.0-71.1) % Lymph % (Auto) (19.3-51.7) % [place] % (Auto) (4.7-12.5) % Eos % (Auto) (0.7-5.8) Baso % (Auto) (0.1-1.2) % Neut # (Auto) (1.56-6.13) K/mm3 Lymph # (Auto) (1.18-3.74) K/mm3 [place] # (Auto) (0.24-0.36) K/mm3 Eos # (Auto) (0.04-0.36) K/mm3 Baso # (Auto) (0.01-0.08) K/mm3 Manual Slide Review VBG pH 7.09 L (7.30-7.40) Sodium (136-145) mEq/L Potassium (3.5-5.1) mEq/L Chloride (98-107) mEq/L Carbon Dioxide (21-32) mEq/L Anion Gap (5-15) BUN (7-18) mg/dL Creatinine (0.55-1.02) mg/dL Est Cr Clr Drug Dosing mL/min Estimated GFR (MDRD) (>60) mL/min BUN/Creatinine Ratio (14-18) Glucose (74-106) mg/dL Serum Osmolality (280-300) mosm/kg Calcium (8.5-10.1) mg/dL Total Bilirubin (0.2-1.0) mg/dL AST (15-37) U/L ALT (14-59) U/L Alkaline Phosphatase (46-116) U/L Total Protein (6.4-8.2) g/dl Albumin (3.4-5.0) g/dl Globulin gm/dL Albumin/Globulin Ratio (1-2) Lipase (73-393) U/L HCG, Qual (NEGATIVE) Urine Color (Yellow) Urine Appearance (Clear) Urine pH (5.0-8.0) Ur Specific [place] (1.005-1.030) Urine Protein (Negative) Urine Glucose (UA) (Negative) Urine Ketones (Negative) Urine Occult Blood (Negative) Urine Nitrite (Negative) Urine Bilirubin (Negative) Urine Urobilinogen (0.2-1.0) Ur Leukocyte Esterase (Negative) Urine RBC (0-5) /hpf Urine WBC (0-5) /hpf Ur Squamous Epith Cells (0-5) /hpf Urine Bacteria (FEW) /hpf Urine Mucus (FEW) /hpf Ketones (0.0-0.3) mM Result Diagrams: 12/29/18 09:25 12/29/18 17:05 Assessment/Plan Comment:: Anion gap metabolic acidosis 2/2 DKA, AG- 32 Respiratory Acidosis Upper GI bleed Uncontrolled DM, unknown HbA1c Dyslipidemia Recent bronchitis diagnosis, started on antibiotics, regimen not completed Class II obesity, BMI 28.9 Anxiety PLAN BY SYSTEMS 1. Neurologic: Avoid central acting medications. 2. Cardiovascular: LR bolus followed by LR at 125ml/hr. Continuous cardiac monitoring. Goal MAP > 65. 3. Respiratory: Influenza swab. RT evaluation. PRN DuoNebs. 4. Kidney and Electrolytes: Replace electrolytes as per DKA protocol. Quantify I/Os daily, monitor urine output. Repeat BMP + Mg + Pi q4h until gap is closed. Repeat ketones q8h. 5. GI, nutrition and Hepatology: NPO except for ice chips for now. Monitor for daily bowel movement. Pantoprazole IV BID for [place] bleed. Occult blood in stool ordered. 6. Infectious Disease: Recent diagnosis with bronchitis, prescribed ATB therapy for 10 days. New CXR ordered. Influenza swab ordered. Pneumovax prior to discharge. 7. Endocrine and Metabolism: New HbA1c. Hold home medications. DKA protocol until anion gap is closed. When that happens add total insulin requirement, 50% of it and divide by 3. 2/3 is long acting insulin to be given a night and the rest should be divided by 3 and given before every meal. 8. Hematology and Oncology: CBC in AM. Gol Hb >7. No need to transfuse at this time. 9. Skin and Musculoskeletal: Out of bed as tolerated. PROPHYLAXIS DVT-Lovenox GI-Pantoprazole CODE STATUS: FULL CODE ANCILL[employer] SERVICES Dietary consult DISPOSITION: Admitted to ICU for DKA management, transition to medical floor once patient is off drip, tolerating diet and on intermediate card tender insulin regimen.
[2018-12-29] MEDS ORDERED: Insulin Regular, Human 100 Units/ML 3 ML Vial SUBCUT ONE (13:43)
--- NOTE | 2018-12-29 14:12 | CR ---
Chest: Two views of the chest were obtained. Comparison: Prior chest x-ray of 07/30/18. Heart size and mediastinum are normal. Lungs are clear. Bony structures are unremarkable. Impression: 1. Nothing acute is seen on two-view chest x-ray. Diagnostic code #1
[2018-12-29] MEDS ORDERED: Potassium Phosphates 15 MMOLE in Sodium Chloride 0.9% 250 ML IV PRN (14:25)
[2018-12-29] MEDS ORDERED: Sodium Bicarbonate 8.4% 50 MEQ/50 ML Syringe IVPUSH PRN (14:25)
[2018-12-29] MEDS ORDERED: Lactated Ringers 1,000 ML IV SCH (14:30)
[2018-12-29] MEDS ORDERED: Dextrose 10% in Water 1,000 ML IV SCH ×2 (14:30→17:15)
[2018-12-29] MEDS ORDERED: Magnesium Sulfate/Water 4 GM in Premix Bag 1 BAG IV ONE (15:00)
[2018-12-29] MEDS ORDERED: Pantoprazole 40 MG in Sodium Chloride 0.9% 100 ML IV SCH (15:15)
[2018-12-29] MEDS: Enoxaparin 40 MG/0.4 ML Syringe SUBCUT SCH (16:14)
[2018-12-29] MEDS: Pantoprazole 40 MG Vial IV SCH (16:20)
[2018-12-29] MEDS: Dextrose 10% in Water 1,000 ML ONE ×2 (17:17→17:35)
[2018-12-29] MEDS ORDERED: Mirtazapine 15 MG Tab PO PRN (18:00)
[2018-12-29] MEDS ORDERED: Ibuprofen 400 MG Tab PO ONE (19:53)
[2018-12-29] MEDS ORDERED: Sodium Phosphate 15 mMole/5 ML SDV IV SCH (21:00)
[2018-12-29] MEDS: Sodium Phosphate 30 MMOLE in Sodium Chloride 0.9% 250 ML IV SCH ×2 (21:11→23:16)
[2018-12-29] MEDS: Lactated Ringers 1,000 ML IV SCH (22:07)
[2018-12-30] MEDS: Potassium Chloride 10 MEQ in Premix Bag 1 BAG IV SCH ×4 (01:26→16:32)
[2018-12-30] MEDS: Pantoprazole 40 MG Vial IV SCH ×2 (03:55→15:52)
[2018-12-30] MEDS: Lactated Ringers 1,000 ML IV SCH ×2 (04:51→11:37)
[2018-12-30] MEDS ORDERED: Potassium Phosphates 30 MMOLE in Sodium Chloride 0.9% 250 ML IV ONE (08:00)
[2018-12-30] MEDS: Enoxaparin 40 MG/0.4 ML Syringe SUBCUT SCH (08:51)
[2018-12-30] MEDS: Aspirin 81 MG Tab.EC PO SCH (08:51)
[2018-12-30] MEDS ORDERED: Insulin Glarg,Human.Rec.Analog 100 UNIT/ML ML SUBCUT ONE (15:45)
[2018-12-30] MEDS: Insulin Lispro 100 Units/ML 3 ML Vial SUBCUT SCH (22:24)
[2018-12-30] MEDS ORDERED: 50% Dextrose in Water 50 ML Syringe IVPUSH PRN (22:53)
[2018-12-31] MEDS: Pantoprazole 40 MG Vial IV SCH (04:08)
[2018-12-31] MEDS ORDERED: Insulin Lispro 100 Units/ML 3 ML Vial SUBCUT SCH (08:00)
[2018-12-31] MEDS ORDERED: Magnesium Sulfate/Water 4 GM in Premix Bag 1 BAG IV ONE (08:01)
[2018-12-31] MEDS ORDERED: Potassium Chloride 20 MEQ Tab.ER PO ONE (08:45)
[2018-12-31] MEDS ORDERED: Rosuvastatin 10 MG Tab PO SCH (09:00)
[2018-12-31] MEDS: Aspirin 81 MG Tab.EC PO SCH (09:04)
[2018-12-31] MEDS: Insulin Lispro 100 Units/ML 3 ML Vial SUBCUT SCH ×3 (09:05→11:45)
[2018-12-31] MEDS: Enoxaparin 40 MG/0.4 ML Syringe SUBCUT SCH (09:10)
--- NOTE | 2018-12-31 14:13 | PCM.DCSUM1 ---
Discharge Summary - Hospital Course HPI Initial Comments: Nausea and vomiting for 2 days, constantly, unable to keep anything down. Aa per patient on Saturday morning she was feeling ok and towards the afternoon she started feeling nauseous and vomiting, she was able to sleep. On Saturday woke up with same symptoms and was vomiting on and off the whole day, no hematemesis. During the evening she stopped vomiting but continued to have dry heaving until 4AM when she had an episode of coffee ground emesis after she lay down and was unable to sleep. This morning at AM started aving nausea and vomiting of coffee ground vomiting x 1 for which she decided to come to the ED for further evaluation. Once in the ED she had another vomiting episode. Associated with abdominal pain, dizziness, headaches, diaphoresis, shortness of breath, chest discomfort with vomiting. Denies association with syncopal episode, confusion, fever, chills, sore throat , itchy eyes or drainage, ear pain, cough, sputum, palpitations, dysuria, frequency, urgency, diarrhea or constipation, rashes. Diagnosed with bronchitis last week, given ATB, augmentin for 10 days (Tanesha) and diabetic cough syrup, symptoms went away Saturday and started day prior to MD consultation. No flu or pneumonia shot. Compliant with insulin and Victoza, except for Saturday and Saturday. Last HbA1c- 10, 1 month ago, verbal report. Glucose at home ranges 200-220, fasting Diagnosed with diabetes at age 32. Diagnosis: Stroke: No - Discharge Data Discharge Date: 12/31/18 Discharge Disposition: Home, Self-Care 01 Condition: Good - Referral to Home Health Primary Care Physician: PCP Not In Area - Patient Summary/Data Consults: Consultations 12/29/18 14:25 Respiratory Care Assess and Treatment [CONS] Routine Hospital Course: Patient was admitted to the ICU and placed on an insulin drip. D10 was added to the infusion to help correct the anion gap. Her lites were followed closely and replaced as necessary. On day 2 anion gap closed, patient was advanced to a diabetic diet, and placed on subcutaneous insulin. Insulin levels readjusted so she is on Lantus 15 units at night and NovoLog 3 units with each meal plus sliding scale. At time of discharge patient was doing well without any complications. - Patient Instructions Diet: Diabetic Diet Activity: As Tolerated Driving: May Drive Today Showering/Bathing: May Shower Notify Provider of: Nausea and/or Vomiting Other/Special Instructions: Follow up with PCP within a week. You will need a potassium and magnesium level. - Discharge Plan *PRESCRIPTION DRUG MONITORING PROGRAM REVIEWED*: No *COPY OF PRESCRIPTION DRUG MONITORING REPORT IN PATIENT CAR: No Prescriptions/Med Rec: Insulin Aspart [NovoLOG] 3 unit SQ TIDAC #1 vial Insulin Aspart [NovoLOG] 0 unit SQ WITHMEALSANDBED #1 vial Insulin Glarg,Human.Rec.Analog [Lantus] 15 unit SUBCUT QPM #1 vial Rosuvastatin [Crestor] 40 mg PO DAILY #30 tablet Home Medications: Home Meds Aspirin [Halfprin] 81 mg PO DAILY 09/04/17 [History] metFORMIN [Glucophage XR] 1,000 mg PO BIDMEALS 09/04/17 [History] Enalapril [Vasotec] 10 mg PO DAILY 08/21/18 [History] Liraglutide [Victoza] 1.8 mg SUBCUT DAILY 08/21/18 [History] Mirtazapine 45 mg PO QPM PRN 08/21/18 [History] Insulin Aspart [NovoLOG] 0 unit SQ WITHMEALSANDBED #1 vial 12/31/18 [Rx] Insulin Aspart [NovoLOG] 3 unit SQ TIDAC #1 vial 12/31/18 [Rx] Insulin Glarg,Human.Rec.Analog [Lantus] 15 unit SUBCUT QPM #1 vial 12/31/18 [Rx] Rosuvastatin [Crestor] 40 mg PO DAILY #30 tablet 12/31/18 [Rx] Patient Handouts: Diabetic Ketoacidosis, Preventing Diabetic Ketoacidosis, Steps to Quit Smoking Forms: ED Department Discharge Referrals: PCP,Not In Area [Primary Care Provider] - - Discharge Summary/Plan Comment DC Time >30 min.: Yes Discharge Summary/Plan Comment: Patient was discharged home in good condition. Lantus was increased to 15 units daily and mealtime insulin 3 units of NovoLog. She was counseled on the use of a sliding scale insulin. She also had diabetic education while hospitalized. Patient will need close follow-up with outpatient treatment. LDL cholesterol was elevated 147 and this was with her on high-dose Pravachol. She was switched to Crestor 40 mg daily and will need a follow-up LDL in 2-3 months. - General Info Date of Service: 12/31/18 Admission Dx/Problem (Free Text: Admission Diagnosis/Problem Admission Diagnosis/Problem Diabetic ketoacidosis Subjective Update: patient tolerated her breakfast. Blood sugars are in the upper 100s to low 200s. she has no nausea, vomiting, or abdominal pain. Functional Status: Reports: Pain Controlled - Review of Systems General: Reports: No Symptoms HEENT: Reports: No Symptoms Pulmonary: Reports: No Symptoms Cardiovascular: Reports: No Symptoms Gastrointestinal: Reports: No Symptoms Musculoskeletal: Reports: No Symptoms - Patient Data Vitals - Most Recent: Last Vital Signs Temp 97.7 F 12/31/18 08:00 Pulse 74 12/31/18 08:00 Resp 18 12/31/18 08:00 BP 135/82 12/31/18 09:05 Pulse Ox 99 12/31/18 08:00 Weight - Most Recent: 200 lb 15.997 oz I&O - Last 24 hours: Intake & Output 12/30/18 12/31/18 12/31/18 22:59 06:59 14:59 Intake Total 3468 100 60 Balance 3468 100 60 Lab Results - Last 24 hrs: Laboratory Results - last 24 hr 12/30/18 12/30/18 12/30/18 Range/Units 15:11 16:15 16:44 WBC (3.98-10.04) K/mm3 RBC (3.98-5.22) M/mm3 Hgb (11.2-15.7) gm/dl Hct (34.1-44.9) % MCV (79.4-94.8) fl MCH (25.6-32.2) pg MCHC (32.2-35.5) g/dl RDW Std Deviation (36.4-46.3) fL Plt Count (182-369) K/mm3 MPV (9.4-12.3) fl Neut % (Auto) (34.0-71.1) % Lymph % (Auto) (19.3-51.7) % [place] % (Auto) (4.7-12.5) % Eos % (Auto) (0.7-5.8) Baso % (Auto) (0.1-1.2) % Neut # (Auto) (1.56-6.13) K/mm3 Lymph # (Auto) (1.18-3.74) K/mm3 [place] # (Auto) (0.24-0.36) K/mm3 Eos # (Auto) (0.04-0.36) K/mm3 Baso # (Auto) (0.01-0.08) K/mm3 Sodium (136-145) mEq/L Potassium (3.5-5.1) mEq/L Chloride (98-107) mEq/L Carbon Dioxide (21-32) mEq/L Anion Gap (5-15) BUN (7-18) mg/dL Creatinine (0.55-1.02) mg/dL Est Cr Clr Drug Dosing mL/min Estimated GFR (MDRD) (>60) mL/min BUN/Creatinine Ratio (14-18) Glucose (74-106) mg/dL POC Glucose 156 H 158 H (70-105) mg/dL Calcium (8.5-10.1) mg/dL Phosphorus (2.6-4.7) mg/dL Magnesium (1.8-2.4) mg/dl Total Bilirubin (0.2-1.0) mg/dL AST (15-37) U/L ALT (14-59) U/L Alkaline Phosphatase (46-116) U/L Total Protein (6.4-8.2) g/dl Albumin (3.4-5.0) g/dl Globulin gm/dL Albumin/Globulin Ratio (1-2) Triglycerides (<150) mg/dL Cholesterol (<200) mg/dL LDL Cholesterol Direct (<100) mg/dL HDL Cholesterol (40-59) mg/dL Ketones 1.80 (0.0-0.3) mM 12/30/18 12/30/18 12/30/18 Range/Units 17:21 17:58 21:46 WBC (3.98-10.04) K/mm3 RBC (3.98-5.22) M/mm3 Hgb (11.2-15.7) gm/dl Hct (34.1-44.9) % MCV (79.4-94.8) fl MCH (25.6-32.2) pg MCHC (32.2-35.5) g/dl RDW Std Deviation (36.4-46.3) fL Plt Count (182-369) K/mm3 MPV (9.4-12.3) fl Neut % (Auto) (34.0-71.1) % Lymph % (Auto) (19.3-51.7) % [place] % (Auto) (4.7-12.5) % Eos % (Auto) (0.7-5.8) Baso % (Auto) (0.1-1.2) % Neut # (Auto) (1.56-6.13) K/mm3 Lymph # (Auto) (1.18-3.74) K/mm3 [place] # (Auto) (0.24-0.36) K/mm3 Eos # (Auto) (0.04-0.36) K/mm3 Baso # (Auto) (0.01-0.08) K/mm3 Sodium (136-145) mEq/L Potassium (3.5-5.1) mEq/L Chloride (98-107) mEq/L Carbon Dioxide (21-32) mEq/L Anion Gap (5-15) BUN (7-18) mg/dL Creatinine (0.55-1.02) mg/dL Est Cr Clr Drug Dosing mL/min Estimated GFR (MDRD) (>60) mL/min BUN/Creatinine Ratio (14-18) Glucose (74-106) mg/dL POC Glucose 149 H 132 H 218 H (70-105) mg/dL Calcium (8.5-10.1) mg/dL Phosphorus (2.6-4.7) mg/dL Magnesium (1.8-2.4) mg/dl Total Bilirubin (0.2-1.0) mg/dL AST (15-37) U/L ALT (14-59) U/L Alkaline Phosphatase (46-116) U/L Total Protein (6.4-8.2) g/dl Albumin (3.4-5.0) g/dl Globulin gm/dL Albumin/Globulin Ratio (1-2) Triglycerides (<150) mg/dL Cholesterol (<200) mg/dL LDL Cholesterol Direct (<100) mg/dL HDL Cholesterol (40-59) mg/dL Ketones (0.0-0.3) mM 12/31/18 12/31/18 12/31/18 Range/Units 00:31 05:20 05:20 WBC 3.01 L (3.98-10.04) K/mm3 RBC 4.08 (3.98-5.22) M/mm3 Hgb 11.0 L D (11.2-15.7) gm/dl Hct 33.4 L (34.1-44.9) % MCV 81.9 (79.4-94.8) fl MCH 27.0 (25.6-32.2) pg MCHC 32.9 (32.2-35.5) g/dl RDW Std Deviation 45.2 (36.4-46.3) fL Plt Count 168 L D (182-369) K/mm3 MPV 9.9 (9.4-12.3) fl Neut % (Auto) 54.4 (34.0-71.1) % Lymph % (Auto) 31.6 (19.3-51.7) % [place] % (Auto) 12.0 (4.7-12.5) % Eos % (Auto) 1.7 (0.7-5.8) Baso % (Auto) 0.3 (0.1-1.2) % Neut # (Auto) 1.64 (1.56-6.13) K/mm3 Lymph # (Auto) 0.95 L (1.18-3.74) K/mm3 [place] # (Auto) 0.36 (0.24-0.36) K/mm3 Eos # (Auto) 0.05 (0.04-0.36) K/mm3 Baso # (Auto) 0.01 (0.01-0.08) K/mm3 Sodium (136-145) mEq/L Potassium (3.5-5.1) mEq/L Chloride (98-107) mEq/L Carbon Dioxide (21-32) mEq/L Anion Gap (5-15) BUN (7-18) mg/dL Creatinine (0.55-1.02) mg/dL Est Cr Clr Drug Dosing mL/min Estimated GFR (MDRD) (>60) mL/min BUN/Creatinine Ratio (14-18) Glucose (74-106) mg/dL POC Glucose (70-105) mg/dL Calcium (8.5-10.1) mg/dL Phosphorus (2.6-4.7) mg/dL Magnesium (1.8-2.4) mg/dl Total Bilirubin (0.2-1.0) mg/dL AST (15-37) U/L ALT (14-59) U/L Alkaline Phosphatase (46-116) U/L Total Protein (6.4-8.2) g/dl Albumin (3.4-5.0) g/dl Globulin gm/dL Albumin/Globulin Ratio (1-2) Triglycerides 214 H (<150) mg/dL Cholesterol 227 H (<200) mg/dL LDL Cholesterol Direct 142 H* (<100) mg/dL HDL Cholesterol 49.0 (40-59) mg/dL Ketones 0.90 (0.0-0.3) mM 12/31/18 12/31/18 12/31/18 Range/Units 05:20 05:20 08:06 WBC (3.98-10.04) K/mm3 RBC (3.98-5.22) M/mm3 Hgb (11.2-15.7) gm/dl Hct (34.1-44.9) % MCV (79.4-94.8) fl MCH (25.6-32.2) pg MCHC (32.2-35.5) g/dl RDW Std Deviation (36.4-46.3) fL Plt Count (182-369) K/mm3 MPV (9.4-12.3) fl Neut % (Auto) (34.0-71.1) % Lymph % (Auto) (19.3-51.7) % Hardin % (Auto) (4.7-12.5) % Eos % (Auto) (0.7-5.8) Baso % (Auto) (0.1-1.2) % Neut # (Auto) (1.56-6.13) K/mm3 Lymph # (Auto) (1.18-3.74) K/mm3 [place]in # (Auto) (0.24-0.36) K/mm3 Eos # (Auto) (0.04-0.36) K/mm3 Baso # (Auto) (0.01-0.08) K/mm3 Sodium 137 (136-145) mEq/L Potassium 3.2 L (3.5-5.1) mEq/L Chloride 105 (98-107) mEq/L Carbon Dioxide 21 (21-32) mEq/L Anion Gap 14.2 (5-15) BUN 5 L (7-18) mg/dL Creatinine 0.5 L (0.55-1.02) mg/dL Est Cr Clr Drug Dosing 154.19 mL/min Estimated GFR (MDRD) > 60 (>60) mL/min BUN/Creatinine Ratio 10.0 L (14-18) Glucose 179 H (74-106) mg/dL POC Glucose 200 H (70-105) mg/dL Calcium 8.2 L (8.5-10.1) mg/dL Phosphorus 2.7 (2.6-4.7) mg/dL Magnesium 1.5 L (1.8-2.4) mg/dl Total Bilirubin 0.4 (0.2-1.0) mg/dL AST 114 H (15-37) U/L ALT 104 H (14-59) U/L Alkaline Phosphatase 62 (46-116) U/L Total Protein 6.2 L (6.4-8.2) g/dl Albumin 2.8 L (3.4-5.0) g/dl Globulin 3.4 gm/dL Albumin/Globulin Ratio 0.8 L (1-2) Triglycerides (<150) mg/dL Cholesterol (<200) mg/dL LDL Cholesterol Direct (<100) mg/dL HDL Cholesterol (40-59) mg/dL Ketones (0.0-0.3) mM 12/31/18 Range/Units 11:42 WBC (3.98-10.04) K/mm3 RBC (3.98-5.22) M/mm3 Hgb (11.2-15.7) gm/dl Hct (34.1-44.9) % MCV (79.4-94.8) fl MCH (25.6-32.2) pg MCHC (32.2-35.5) g/dl RDW Std Deviation (36.4-46.3) fL Plt Count (182-369) K/mm3 MPV (9.4-12.3) fl Neut % (Auto) (34.0-71.1) % Lymph % (Auto) (19.3-51.7) % [place] % (Auto) (4.7-12.5) % Eos % (Auto) (0.7-5.8) Baso % (Auto) (0.1-1.2) % Neut # (Auto) (1.56-6.13) K/mm3 Lymph # (Auto) (1.18-3.74) K/mm3 [place]in # (Auto) (0.24-0.36) K/mm3 Eos # (Auto) (0.04-0.36) K/mm3 Baso # (Auto) (0.01-0.08) K/mm3 Sodium (136-145) mEq/L Potassium (3.5-5.1) mEq/L Chloride (98-107) mEq/L Carbon Dioxide (21-32) mEq/L Anion Gap (5-15) BUN (7-18) mg/dL Creatinine (0.55-1.02) mg/dL Est Cr Clr Drug Dosing mL/min Estimated GFR (MDRD) (>60) mL/min BUN/Creatinine Ratio (14-18) Glucose (74-106) mg/dL POC Glucose 200 H (70-105) mg/dL Calcium (8.5-10.1) mg/dL Phosphorus (2.6-4.7) mg/dL Magnesium (1.8-2.4) mg/dl Total Bilirubin (0.2-1.0) mg/dL AST (15-37) U/L ALT (14-59) U/L Alkaline Phosphatase (46-116) U/L Total Protein (6.4-8.2) g/dl Albumin (3.4-5.0) g/dl Globulin gm/dL Albumin/Globulin Ratio (1-2) Triglycerides (<150) mg/dL Cholesterol (<200) mg/dL LDL Cholesterol Direct (<100) mg/dL HDL Cholesterol (40-59) mg/dL Ketones (0.0-0.3) mM LINDA Results - Last 24 hrs: Microbiology 12/29/18 09:12 Influenza Type A Antigen Screen - Final Nasopharyngeal Swab - Nare, Unspecified NEGATIVE INFLUENZA A VIRUS AG REFERENCE RANGE: NEGATIVE Influenza Type B Antigen Screen - Final NEGATIVE INFLUENZA B VIRUS AG REFERENCE RANGE: NEGATIVE Med Orders - Current: Current Medications Discontinued Medications Aspirin (Halfprin) 81 mg PO DAILY EMEKA Last Admin: 12/31/18 09:04 Dose: 81 mg Dextrose/Water (Dextrose 50% In Water) 50 ml IVPUSH ASDIRECTED PRN PRN Reason: Blood Glucose Diatrizoate Meglum/Diatrizoate Sod (Gastrografin 37%) 120 ml PO ONETIME ONE Stop: 12/29/18 09:24 Last Admin: 12/29/18 11:05 Dose: 90 ml Enalapril Maleate (Vasotec) 10 mg PO DAILY [facility], [facility] Last Admin: 12/31/18 09:05 Dose: 10 mg Enoxaparin Sodium (Lovenox) 40 mg SUBCUT DAILY [facility], [facility]1983 Last Admin: 12/31/18 09:10 Dose: 40 mg Hydromorphone HCl (Dilaudid) 1 mg IVPUSH ONETIME ONE Stop: 12/29/18 09:13 Last Admin: 12/29/18 09:28 Dose: 1 mg Sodium Chloride (Normal Saline) 1,000 mls @ 1,000 mls/hr IV .BOLUS STA Stop: 12/29/18 10:10 Last Admin: 12/29/18 09:38 Dose: 1,000 mls/hr Lactated Ringer's (Ringers, Lactated) 1,000 mls @ 1,000 mls/hr IV .BOLUS ONE Stop: 12/29/18 11:46 Last Admin: 12/29/18 10:58 Dose: 1,000 mls/hr Lactated Ringer's (Ringers, Lactated) 1,000 mls @ 1,000 mls/hr IV .BOLUS ONE Stop: 12/29/18 13:32 Last Admin: 12/29/18 13:05 Dose: 1,000 mls/hr Insulin Human Regular 100 unit (/ Sodium Chloride) 100 mls @ 8.89 mls/hr IV TITRATE EMEKA; Protocol Dextrose/Water (Dextrose 10% In Water) 1,000 mls @ 40 mls/hr IV ASDIRECTED EMEKA Stop: 12/30/18 15:31 Lactated Ringer's (Ringers, Lactated) 1,000 mls @ 150 mls/hr IV ASDIRECTED EMEKA Stop: 12/29/18 21:09 Last Admin: 12/29/18 15:12 Dose: 150 mls/hr Magnesium Sulfate 4 gm/ Premix 50 mls @ 12.5 mls/hr IV ONETIME ONE Stop: 12/29/18 18:59 Last Admin: 12/29/18 15:23 Dose: 12.5 mls/hr Potassium Phosphate 15 mmole/ (Sodium Chloride) 255 mls @ 127.5 mls/hr IV ONETIME PRN PRN Reason: SEE COMMENT Insulin Human Regular 100 unit (/ Sodium Chloride) 100 mls @ 8.89 mls/hr IV TITRATE EMEKA; Protocol Last Titration: 12/30/18 15:14 Dose: 2 units/kg/hr, 177.8 mls/hr Pantoprazole Sodium 40 mg/ (Sodium Chloride) 100 mls @ 200 mls/hr IV Q12H EMEKA Dextrose/Water (Dextrose 10% In Water) Confirm Administered Dose 1,000 mls @ as directed .ROUTE .STK-MED ONE Stop: 12/29/18 17:03 Last Admin: 12/29/18 17:35 Dose: Not Given Dextrose/Water (Dextrose 10% In Water) 1,000 mls @ 40 mls/hr IV CONTINUOUS EMEKA Stop: 12/30/18 17:14 Last Admin: 12/29/18 17:19 Dose: 40 mls/hr Sodium Phosphate 30 mmole/ (Sodium Chloride) 260 mls @ 130 mls/hr IV Q2H EMEKA Stop: 12/30/18 00:29 Last Admin: 12/29/18 23:16 Dose: 130 mls/hr Sodium Phosphate 30 mmole/ (Sodium Chloride) 260 mls @ 130 mls/hr IV Q2H PRN PRN Reason: CONSULT WITH PROVIDER PRIOR Lactated Ringer's (Ringers, Lactated) 1,000 mls @ 150 mls/hr IV ASDIRECTED EMEKA Last Admin: 12/30/18 11:37 Dose: 150 mls/hr Potassium Chloride 10 meq/ (Premix) 100 mls @ 100 mls/hr IV Q1H EMEKA Stop: 12/30/18 03:14 Last Admin: 12/30/18 02:26 Dose: 100 mls/hr Potassium Chloride 10 meq/ (Premix) 100 mls @ 100 mls/hr IV Q1H EMEKA Stop: 12/30/18 13:59 Last Admin: 12/30/18 16:32 Dose: Not Given Potassium Phosphate 30 mmole/ (Sodium Chloride) 260 mls @ 65 mls/hr IV ONETIME ONE Stop: 12/30/18 11:59 Last Admin: 12/30/18 08:47 Dose: 65 mls/hr Magnesium Sulfate 4 gm/ Premix 50 mls @ 12.5 mls/hr IV ONETIME ONE Stop: 12/31/18 12:00 Last Admin: 12/31/18 08:14 Dose: 12.5 mls/hr Ibuprofen (Motrin) 400 mg PO ONETIME ONE Stop: 12/29/18 19:54 Last Admin: 12/29/18 20:17 Dose: 400 mg Influenza Virus Vaccine (Pharmacy To Dose - Influenza Vaccine) 1 each IM ONETIME ONE Stop: 12/29/18 08:50 Last Admin: 12/29/18 16:13 Dose: Not Given Influenza Virus Vaccine (Fluzone Quad [id number] Syringe) 60 mcg IM .ONCE ONE Stop: 12/29/18 09:01 Last Admin: 12/30/18 14:25 Dose: 60 mcg Insulin Glargine (Lantus) 15 unit SUBCUT STAT ONE Stop: 12/30/18 15:46 Last Admin: 12/30/18 15:50 Dose: 15 units Insulin Glargine (Lantus) 15 unit SUBCUT QPM EMEKA Insulin Human Lispro (Humalog) 0 unit SUBCUT TIDMEALS EMEKA; Protocol Insulin Human Lispro (Humalog) 3 unit SUBCUT TIDAC [facility], [facility]–1983 Last Admin: 12/31/18 11:45 Dose: 3 units Insulin Human Lispro (Humalog) 0 unit SUBCUT QIDACANDBED [facility], [facility]–1983; Protocol Last Admin: 12/31/18 09:06 Dose: 4 unit Insulin Human Regular (Humulin R) 8 unit IV ONETIME ONE Stop: 12/29/18 13:00 Last Admin: 12/29/18 13:44 Dose: Not Given Insulin Human Regular (Humulin R) 8 unit SUBCUT ONETIME ONE Stop: 12/29/18 13:44 Last Admin: 12/29/18 13:45 Dose: 8 units Iopamidol (Isovue-300 (61%)) 100 ml IVPUSH ONETIME ONE Stop: 12/29/18 09:24 Last Admin: 12/29/18 11:05 Dose: 100 ml Mirtazapine (Remeron) 45 mg PO QPM PRN PRN Reason: Anxiety Ondansetron HCl (Zofran) 4 mg IVPUSH ONETIME ONE Stop: 12/29/18 09:12 Last Admin: 12/29/18 09:25 Dose: 4 mg Pantoprazole Sodium (Protonix Iv) 80 mg IVPUSH BOLUS ONE Stop: 12/29/18 09:14 Last Admin: 12/29/18 09:30 Dose: 80 mg Pantoprazole Sodium (Protonix Iv) 40 mg IV Q12H [facility], [facility] Last Admin: 12/31/18 04:08 Dose: 40 mg Potassium Chloride (Klor-Con M20) 40 meq PO ONETIME ONE Stop: 12/31/18 08:46 Last Admin: 12/31/18 09:05 Dose: 40 meq Rosuvastatin Calcium (Crestor) 40 mg PO DAILY [facility], [facility]1983 Last Admin: 12/31/18 09:04 Dose: 40 mg Sodium Bicarbonate (Sodium Bicarbonate 8.4%) 100 meq IVPUSH ONETIME PRN PRN Reason: SEE COMMENTS Sodium Chloride (Saline Flush) 10 ml FLUSH ASDIRECTED PRN PRN Reason: Keep Vein Open Sodium Chloride (Saline Flush) 10 ml FLUSH ONETIME PRN PRN Reason: IV FLUSH Last Admin: 12/29/18 11:05 Dose: 10 ml Sodium Phosphate (Sodium Phosphate) 30 mmole IV Q2HR EMEKA Stop: 12/29/18 22:01 - Exam Quality Assessment: Denies: Supplemental Oxygen General: Reports: Alert, Oriented HEENT: Reports: Pupils Equal, Pupils Reactive, EOMI, Mucous Membr. Moist/[place] Neck: Reports: Supple Lungs: Reports: Clear to Auscultation, Normal Respiratory Effort Cardiovascular: Reports: Regular Rate, Regular Rhythm GI/Abdominal Exam: Normal Bowel Sounds, Soft, Non-Tender, No Organomegaly, No Distention, No Abnormal Bruit, No Mass, Pelvis Stable Extremities: Normal Inspection, Normal Range of Motion, No Pedal Edema Skin: Reports: Warm, Dry, Intact Psy/Mental Status: Reports: Alert, Normal Affect, Normal Mood
[2018-12-31] MEDS ORDERED: Insulin Glarg,Human.Rec.Analog 100 UNIT/ML ML SUBCUT SCH (21:00)
== END 2018-12-31 12:00 | disposition home or self-care (01) | DRG 420 ==
LOC: JD.ED 08:33 → JD.ICU 12:41
PROVIDERS: ADMIT Internal Medicine; ATTEND Internal Medicine
DX: E10.10 Type 1 diabetes mellitus with ketoacidosis without coma (principal); E78.00 Pure hypercholesterolemia, unspecified; I10 Essential (primary) hypertension; F41.9 Anxiety disorder, unspecified; F17.210 Nicotine dependence, cigarettes, uncomplicated; E87.4 Mixed disorder of acid-base balance; J40 Bronchitis, not specified as acute or chronic; E66.9 Obesity, unspecified; Z23 Encounter for immunization; Z79.82 Long term (current) use of aspirin; Z79.899 Other long term (current) drug therapy; Z68.29 Body mass index [BMI] 29.0-29.9, adult
CPT/HCPCS: 36415; 36600; 71046; 71046-26; 74177; 74177-26; 80048; 80053; 80061; 81001; 82009; 82800; 82803; 82962; 83036; 83605; 83690; 83735; 83930; 84100; 84703; 85025; 87804; 90686; 93005; 96361; 96372; 96374; 96375; 99285; 99285-25; A9270-GY; C9113; J1170; J1650; J1815-GY; J2405; J3475; J3480; J3490; J7040; J7042; J7050; J7120; Q9963; Q9967

== ENCOUNTER 2020-03-05 23:00 | Emergency (ER) | payer BC ==
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
[2020-03-05] MEDS ORDERED: Sodium Chloride 0.9% 1,000 ML IV SCH (23:30)
[2020-03-06] MEDS ORDERED: Insulin Regular, Human 100 Units/ML 3 ML Vial IV STA (00:30)
[2020-03-06] MEDS ORDERED: Iopamidol 612 MG/ML 100 ML Bottle IVPUSH ONE (01:50)
[2020-03-06] MEDS ORDERED: Sodium Chloride 0.9% 100 ML IV SCH (02:00)
[2020-03-06] MEDS ORDERED: Sodium Chloride 0.9% 10 ML Syringe FLUSH SCH (02:00)
[2020-03-06] MEDS ORDERED: FLU VACC QS2020-21(6MOS UP)/PF 60 MCG/0.5 ML SYRINGE IM ONE (02:15)
--- NOTE | 2020-03-06 09:29 | CT ---
CT cervical spine Technique: Multiple axial sections were obtained from above C1 inferiorly below the T5 level. Reconstructed coronal and sagittal images were obtained. Findings: Very slight anterior spurring is noted at C4-5 and C5-6. Vertebral body heights are maintained. Disc spaces are fairly well maintained. No acute fracture is seen. Very slight upper thoracic scoliosis is noted. Impression: 1. Findings as noted above. 2. Nothing acute is seen. Diagnostic code #2 I agree with preliminary report from [facility], finalized on 03/06/20, 2:20 AM AD COPY WRITER
--- NOTE | 2020-03-06 09:32 | CT ---
CT chest Technique: Multiple axial sections were obtained from above the lung apices inferiorly through the lung bases. Intravenous contrast was utilized. Reconstructed coronal and sagittal images were obtained. Comparison: No prior CT study is available, prior chest x-ray of 07/30/18. Findings: Mediastinum and hilar regions show no adenopathy. Thoracic aorta shows no aneurysm. No axillary adenopathy is seen. Heart size is normal. No pericardial thickening is appreciated. Lung window settings were obtained which show very minimal atelectasis posteriorly within the right lung base. Lungs otherwise are clear with no acute parenchymal change. Bone window settings were reviewed which show no acute osseous finding. Impression: 1. Nothing acute is appreciated on CT study of the chest. Diagnostic code #2 I agree with preliminary report from [facility], finalized on 03/06/20, 2:[address] abdomen and pelvis Technique: Multiple axial sections were obtained from above the dome of the diaphragm inferiorly through the pubic symphysis. Intravenous contrast was utilized. Delayed images were also obtained through the abdomen and pelvis. Reconstructed coronal and sagittal images were obtained. Comparison: Previous CT abdomen and pelvis study of 12/29/18. Findings: Liver shows slight diminished density suspicious for fatty infiltration. No focal abnormality is appreciated within the liver. Spleen appears within normal limits. Adrenal glands show no nodule. Gallbladder shows evidence of previous cholecystectomy with surgical clips. Pancreas appears normal. Kidneys show symmetric contrast enhancement. Cyst is identified within the mid left kidney measuring approximately 1.5 cm which is stable. Daily images show contrast excretion from both kidneys into the ureters and within the bladder. Aorta shows no aneurysm. No retroperitoneal adenopathy or mesenteric abnormalities are seen. Very minimal fat-containing umbilical hernia is noted. Mild increased urine is seen within the bladder most likely relating to lack of voiding. Please correlate. No pelvic mass or adenopathy is appreciated.. No definite visualization of the appendix is seen. Bone window settings were reviewed which show no acute osseous finding. Impression: 1. Fatty infiltration within the liver. Previous cholecystectomy. Very small fat-containing umbilical hernia. 2. Distended bladder most likely relating to lack of voiding. 3. No additional abnormality is appreciated on CT study of the abdomen and pelvis. Diagnostic code #2 I agree with preliminary report from [facility], finalized on 03/06/20, 2:16 AM BOILER TESTER
--- NOTE | 2020-03-06 09:32 | CT ---
Head CT Technique: Multiple axial sections through the brain were obtained. Intravenous contrast was not utilized. Comparison: No prior studies available. Findings: Ventricles show no definite abnormal intraparenchymal density. Ventricles are within normal limits. Sulci over the convexities and basal cisterns also appear within normal limits. No evidence of intracranial hemorrhage. Minimal fluid is seen within the sphenoid sinuses. Other visualized sinuses are clear. Mastoid sinuses are clear. No acute calvarial finding is appreciated. Impression: 1. Mild air-fluid levels within the sphenoid sinus. These are so mild that they most likely represent retained secretions. Please correlate the patient has no symptoms of sinusitis. 2. Nothing acute is otherwise seen on noncontrast CT study of the brain. Diagnostic code #3 I mostly agree with preliminary report from [facility], finalized on 03/06/20, 2:17 AM TECHNICAL ARCHITECT
--- NOTE | 2020-03-06 09:33 | CR ---
Left knee: 3 views of the left knee were obtained. Comparison: No previous knee study. Very minimal medial joint space narrowing is seen. Lateral joint space is preserved. No joint effusion is seen. Slight vascular calcification is noted. No acute fracture or dislocation is seen. Impression: 1. Minimal medial joint space narrowing and vascular calcifications. 2. Nothing acute is appreciated on three-view left knee exam. Diagnostic code #2 I mostly agree with preliminary report from [facility], finalized on 03/06/20, 2:44 AM MAIL OFFICER
== END 2020-03-06 02:36 | disposition home or self-care (01) ==
LOC: JD.ED 23:00
DX: F10.129 Alcohol abuse with intoxication, unspecified (principal); E11.65 Type 2 diabetes mellitus with hyperglycemia; E83.42 Hypomagnesemia; I10 Essential (primary) hypertension; E78.00 Pure hypercholesterolemia, unspecified; F41.9 Anxiety disorder, unspecified; F17.210 Nicotine dependence, cigarettes, uncomplicated; E66.9 Obesity, unspecified; Z68.29 Body mass index [BMI] 29.0-29.9, adult; Z23 Encounter for immunization; Y90.0 Blood alcohol level of less than 20 mg/100 ml; Z79.82 Long term (current) use of aspirin; Z79.4 Long term (current) use of insulin; Z79.899 Other long term (current) drug therapy; V89.2XXA Person injured in unspecified motor-vehicle accident, traffic, initial encounter
CPT/HCPCS: 36415; 70450; 71260; 72125; 73562; 74177; 80053; 80306; 80307; 81001; 81025; 83735; 85007; 85027; 90471; 90686; 99285; J1815; J7030; Q9967; 99284; G0008

== ENCOUNTER 2020-04-08 23:03 | Inpatient (IN) | payer BC ==
--- NOTE | 2020-04-08 23:26 | EDM.PDOC ---
ED HPI GENERAL MEDICAL PROBLEM - General Chief Complaint: Respiratory Problem Stated Complaint: [facility] Time Seen by Provider: 04/08/20 23:14 Source of Information: Reports: Patient History Limitations: Reports: No Limitations - History of Present Illness INITIAL COMMENTS - FREE TEXT/NARRATIVE: Ms. Redd is a pleasant 44-year-old woman who is now brought to the ED by EMS due to chest discomfort, generalized weakness, dyspnea, vomiting, and lower back pain. She states that she was diagnosed with COVID-19 on 03/26/2020. She states that she developed retrosternal chest pain - she points with one finger to the area - about a week ago, after she coughed. She states that she felt a "pop" at the time. She then developed generalized weakness last night, and dyspnea this morning, although it was brief and did not persist. She does not feel dyspneic at this time. She states that she developed bilateral lower back pain, worse on the right than the left, today, and that she has been vomiting all day. No recent fever. The paramedics reported that the patient's SPO2 was 80% on room air, 100% on 4 L per nasal cannula, however, upon arrival to the ED, the patient's oxygen saturation is found to be 94 to 96% on room air. Her BP is modestly elevated at 150s , with tachycardia of 108 bpm. She is afebrile. The patient was given 100 mcg of fentanyl and 4 mg of IV Zofran, along with 1 L of IV fluid per EMS en route to the ED. Prior to about a week ago, the patient denies having a recent fever, chills, sore throat, ear pain, nasal or sinus congestion, cough, dyspnea, chest pain, palpitations, nausea, vomiting, constipation, diarrhea, abdominal pain, urinary symptoms, recent weight gain or weight loss, recent bloody bowel movements or black bowel movements, recent joint aches, headaches, or rashes. The patient's PCP is at the [facility]. She states that she received an influenza vaccine the last time she was seen in this ED (03/05/2020). - Related Data Allergies Allergy/AdvReac Type Severity Reaction Status Date / Time No Known Allergies Allergy Verified 04/09/20 01:59 Home Meds: Home Meds Aspirin [Halfprin] 81 mg PO DAILY 09/04/17 [History] metFORMIN [Glucophage XR] 1,000 mg PO BIDMEALS 09/04/17 [History] Enalapril [Vasotec] 10 mg PO DAILY 08/21/18 [History] Liraglutide [Victoza] 1.8 mg SUBCUT DAILY 08/21/18 [History] Mirtazapine 45 mg PO QPM PRN 08/21/18 [History] Insulin Aspart [NovoLOG] 0 unit SQ WITHMEALSANDBED #1 vial 12/31/18 [Rx] Insulin Aspart [NovoLOG] 3 unit SQ TIDAC #1 vial 12/31/18 [Rx] Insulin Glarg,Human.Rec.Analog [Lantus] 15 unit SUBCUT QPM #1 vial 12/31/18 [Rx] Rosuvastatin [Crestor] 40 mg PO DAILY #30 tablet 12/31/18 [Rx] Past Medical History Cardiovascular History: Reports: High Cholesterol, Hypertension Psychiatric History: Reports: Anxiety Endocrine/Metabolic History: Reports: Diabetes, Type II, Obesity/BMI 30+ - Past Surgical History GI Surgical History: Reports: Cholecystectomy (2003) Social & Family History - Tobacco Use Tobacco Use Status *Q: Current Every Day Tobacco User Years of Tobacco use: 26 Packs/Tins Daily: 0.3 Tobacco Use Comment: Since 18 yrs old - Caffeine Use Caffeine Use: Reports: Soda - Alcohol Use Alcohol Use History: Yes Alcohol Use Frequency: Socially (to excess on occasion) - Recreational Drug Use Recreational Drug Use: No - Living Situation & Occupation Living situation: Reports: Single, with Family (6 kids + their father) Occupation: Employed (confidential secretary) ED ROS GENERAL - Review of Systems Review Of Systems: Comprehensive ROS is negative, except as noted in HPI. ED EXAM, GENERAL - Physical Exam Exam: See Below Exam Limited By: No Limitations General Appearance: Alert, WD/WN, No Apparent Distress Eye Exam: Bilateral Eye: EOMI, Normal Inspection Ears: Normal External Exam, Hearing Grossly Normal Nose: Normal Inspection Throat/Mouth: Normal Inspection, Normal Lips, Normal Voice, No Airway Compromise Head: Atraumatic, Normocephalic Neck: Normal Inspection, Full Range of Motion Respiratory/Chest: No Respiratory Distress, Lungs Clear, Normal Breath Sounds, No Accessory Muscle Use. No: Decreased Breath Sounds, Crackles, Rhonchi, Wheezing, Stridor, Prolonged Expiration Cardiovascular: Normal Peripheral Pulses, Regular Rate, Rhythm, No Edema, No Gallop, No JVD, No Murmur, No Rub Peripheral Pulses: 3+: Radial (L), Radial (R) GI/Abdominal: Normal Bowel Sounds, Soft, Non-Tender, No Organomegaly, No Distention, No Abnormal Bruit, No Mass Back Exam: Normal Inspection, Full Range of Motion, NT Extremities: Normal Inspection, Normal Range of Motion, Normal Capillary Refill Neurological: Alert, Oriented, Normal Cognition, No Motor/Sensory Deficits Psychiatric: Normal Affect Skin Exam: Warm, Dry, Intact, Normal Color, No Rash #1 Interpretation EKG Date: 04/08/20 Time: 23:49 Rhythm: Other (Sinus tachycardia) Rate (Beats/Min): 101 [place]: Normal P-Wave: Enlarged (possible LAE) QRS: Normal ST-T: Normal QT: Prolonged (QTc 542 ms) Comparison: Change From Previous EKG (QTc prolongation new since 12/29/2018) Course - Vital Signs Last Recorded V/S: Last Vital Signs Temp 36.8 C 04/08/20 23:05 Pulse 108 H 04/08/20 23:05 Resp 20 04/08/20 23:05 BP 151/81 H 04/08/20 23:05 Pulse Ox 94 L 04/08/20 23:05 - Orders/Labs/Meds Orders: Active Orders 24 hr Category Date Time Status EKG Documentation Completion [RC] STAT Care 04/08/20 23:21 Active Chest 2V [CR] Stat Exams 04/08/20 23:20 Taken CULTURE BLOOD [BC] Stat Lab 04/09/20 01:05 Received CULTURE BLOOD [BC] Stat Lab 04/09/20 01:18 Received CULTURE URINE [RM] Stat Lab 04/09/20 01:47 Received Magnesium Sulfate/Water [Magnesium Sulfate in Water Med 04/09/20 00:59 Active Premix] 4 gm Premix Bag 1 bag IV ONETIME Sodium Chloride 0.9% [Normal Saline] 1,000 ml Med 04/09/20 01:00 Active IV ASDIRECTED Blood Culture x2 Reflex Set [OM.PC] Stat Oth 04/09/20 01:17 Ordered Medication Orders Sodium Chloride (Normal Saline) 1,000 mls @ 150 mls/hr IV ASDIRECTED EMEKA Last Admin: 04/09/20 01:13 Dose: 150 mls/hr Documented by: STEVE Magnesium Sulfate 4 gm/ Premix 50 mls @ 12.5 mls/hr IV ONETIME ONE Stop: 04/09/20 04:58 Last Admin: 04/09/20 01:13 Dose: 12.5 mls/hr Documented by: STEVE Labs: Laboratory Tests 04/08/20 04/08/20 04/08/20 Range/Units 23:37 23:37 23:37 WBC 11.74 H (3.98-10.04) K/mm3 RBC 4.87 (3.98-5.22) M/mm3 Hgb 11.7 (11.2-15.7) gm/dl Hct 38.0 (34.1-44.9) % MCV 78.0 L (79.4-94.8) fl MCH 24.0 L (25.6-32.2) pg MCHC 30.8 L (32.2-35.5) g/dl RDW Std Deviation 45.0 (36.4-46.3) fL Plt Count 231 (182-369) K/mm3 MPV 9.4 (9.4-12.3) fl Neutrophils % (Manual) 72 H (40-60) % Band Neutrophils % 21 H (0-10) % Lymphocytes % (Manual) 5 L (20-40) % Atypical Lymphs % 0 % Monocytes % (Manual) 2 (2-10) % Eosinophils % (Manual) 0 L (0.7-5.8) % Basophils % (Manual) 0 L (0.1-1.2) Platelet Estimate Adequate Plt Morphology Comment Normal Hypochromasia 1+ slight Anisocytosis 1+ slight Microcytosis 2+ moderate RBC Morph Comment Not Reportable D-Dimer, Quantitative 0.76 H (0.19-0.50) mg/L Sodium 136 (136-145) mEq/L Potassium 3.8 (3.5-5.1) mEq/L Chloride 101 (98-107) mEq/L Carbon Dioxide 22 (21-32) mEq/L Anion Gap 16.8 H (5-15) BUN 9 (7-18) mg/dL Creatinine 0.8 (0.55-1.02) mg/dL Est Cr Clr Drug Dosing 95.74 mL/min Estimated GFR (MDRD) > 60 (>60) mL/min BUN/Creatinine Ratio 11.3 L (14-18) Glucose 283 H (74-106) mg/dL Lactic Acid (0.4-2.0) mmol/L Calcium 8.4 L (8.5-10.1) mg/dL Magnesium 1.4 L (1.8-2.4) mg/dl Total Bilirubin 0.9 (0.2-1.0) mg/dL AST 57 H (15-37) U/L ALT 70 H (14-59) U/L Alkaline Phosphatase 83 (46-116) U/L Troponin I < 0.017 (0.00-0.056) ng/mL NT-Pro-B Natriuret Pep (0-125) pg/mL Total Protein 7.5 (6.4-8.2) g/dl Albumin 3.1 L (3.4-5.0) g/dl Globulin 4.4 gm/dL Albumin/Globulin Ratio 0.7 L (1-2) TSH 3rd Generation 0.779 (0.358-3.74) uIU/mL Urine Color (Yellow) Urine Appearance (Clear) Urine pH (5.0-8.0) Ur Specific [place] (1.005-1.030) Urine Protein (Negative) Urine Glucose (UA) (Negative) Urine Ketones (Negative) Urine Occult Blood (Negative) Urine Nitrite (Negative) Urine Bilirubin (Negative) Urine Urobilinogen (0.2-1.0) Ur Leukocyte Esterase (Negative) U Hyaline Cast (Auto) (0-5) /lpf Urine RBC (0-5) /hpf Urine WBC (0-5) /hpf Urine WBC Clumps (NOT SEEN) /hpf Ur Squamous Epith Cells (0-5) /hpf Urine Bacteria (FEW) /hpf Urine Mucus (FEW) /hpf 04/08/20 04/08/20 04/09/20 Range/Units 23:37 23:37 01:47 WBC (3.98-10.04) K/mm3 RBC (3.98-5.22) M/mm3 Hgb (11.2-15.7) gm/dl Hct (34.1-44.9) % MCV (79.4-94.8) fl MCH (25.6-32.2) pg MCHC (32.2-35.5) g/dl RDW Std Deviation (36.4-46.3) fL Plt Count (182-369) K/mm3 MPV (9.4-12.3) fl Neutrophils % (Manual) (40-60) % Band Neutrophils % (0-10) % Lymphocytes % (Manual) (20-40) % Atypical Lymphs % % Monocytes % (Manual) (2-10) % Eosinophils % (Manual) (0.7-5.8) % Basophils % (Manual) (0.1-1.2) Platelet Estimate Plt Morphology Comment Hypochromasia Anisocytosis Microcytosis RBC Morph Comment D-Dimer, Quantitative (0.19-0.50) mg/L Sodium (136-145) mEq/L Potassium (3.5-5.1) mEq/L Chloride (98-107) mEq/L Carbon Dioxide (21-32) mEq/L Anion Gap (5-15) BUN (7-18) mg/dL Creatinine (0.55-1.02) mg/dL Est Cr Clr Drug Dosing mL/min Estimated GFR (MDRD) (>60) mL/min BUN/Creatinine Ratio (14-18) Glucose (74-106) mg/dL Lactic Acid 1.0 (0.4-2.0) mmol/L Calcium (8.5-10.1) mg/dL Magnesium (1.8-2.4) mg/dl Total Bilirubin (0.2-1.0) mg/dL AST (15-37) U/L ALT (14-59) U/L Alkaline Phosphatase (46-116) U/L Troponin I (0.00-0.056) ng/mL NT-Pro-B Natriuret Pep 306 H (0-125) pg/mL Total Protein (6.4-8.2) g/dl Albumin (3.4-5.0) g/dl Globulin gm/dL Albumin/Globulin Ratio (1-2) TSH 3rd Generation (0.358-3.74) uIU/mL Urine Color Rama H (Yellow) Urine Appearance Cloudy H (Clear) Urine pH 6.0 (5.0-8.0) Ur Specific [place] 1.025 (1.005-1.030) Urine Protein 3+ H (Negative) Urine Glucose (UA) 2+ H (Negative) Urine Ketones 4+ H (Negative) Urine Occult Blood 3+ H (Negative) Urine Nitrite Positive H (Negative) Urine Bilirubin Negative (Negative) Urine Urobilinogen 0.2 (0.2-1.0) Ur Leukocyte Esterase 1+ H (Negative) U Hyaline Cast (Auto) 0-5 (0-5) /lpf Urine RBC 20-30 H (0-5) /hpf Urine WBC Too numerous to cnt H (0-5) /hpf Urine WBC Clumps Many (NOT SEEN) /hpf Ur Squamous Epith Cells 5-10 H (0-5) /hpf Urine Bacteria Many H (FEW) /hpf Urine Mucus Few (FEW) /hpf Meds: Medications Generic Name Dose Route Start Last Admin Trade Name Freq PRN Reason Stop Dose Admin Sodium Chloride 1,000 mls @ 150 mls/hr 04/09/20 01:00 04/09/20 01:13 Normal Saline IV 150 mls/hr ASDIRECTED EMEKA Administration Magnesium Sulfate 4 gm/ Premix 50 mls @ 12.5 mls/hr 04/09/20 00:59 04/09/20 01:13 IV 04/09/20 04:58 12.5 mls/hr ONETIME ONE Administration Discontinued Medications Generic Name Dose Route Start Last Admin Trade Name Freq PRN Reason Stop Dose Admin Levofloxacin/Dextrose 750 mg/ 150 mls @ 100 mls/hr 04/09/20 00:59 04/09/20 01:31 Premix IV 04/09/20 02:28 100 mls/hr ONETIME STA Administration Insulin Human Regular 18 unit 04/09/20 01:03 04/09/20 01:22 Humulin R SUBCUT 04/09/20 01:04 18 unit ONETIME STA Administration - Re-Assessments/Exams Free Text/Narrative Re-Assessment/Exam: 04/08/20 23:23 As above, the patient was diagnosed with COVID-19 on 03/26/2020, then developed chest discomfort after she coughed about a week ago, some generalized weakness last night, dyspnea, nausea vomiting, and lower back pain today. While EMS had reported that she had an oxygen saturation of 80% on room air, we find her to have a normal oxygen saturation here in the ED. Her physical exam is entirely unremarkable. I have ordered a work-up and includes several blood tests, chest x-ray, and an ECG. 04/09/20 00:43 Two-view chest radiograph appears to be grossly normal. The cardiac silhouette is within normal limits. No pulmonary vascular congestion. No pleural effusions. No focal infiltrate. No pneumothorax. Formal read per the Radiologist pending. The patient's CBC is remarkable for a WBC count slightly elevated at 11.74, but with 21% bandemia. The remainder of her CBC is unremarkable. Her CMP is remarkable for an anion gap slightly elevated at 16.8, but with a bicarbonate normal at 22. Her blood glucose is elevated at 283. Her AST/ALT are mildly elevated at 57/70, respectively, with the remainder of her CMP being unremarkable. Her magnesium level is depressed at 1.4. Her lactic acid level is within normal limits at 1.0. Her TSH is within normal limits at 0.779. Her troponin is undetectably low. Her pro-BNP is slightly elevated at 306. Her D-dimer is slightly elevated at 0.76. I called the lab and spoke to Lucia, who confirmed that the 21% band count is correct. This was a manual count. Review of prior labs finds that the patient's band count was 0% on 03/05/2020. Bandemia has numerous potential causes. It is typically caused by a bacterial infection, although can be caused by leukemia or other bone marrow abnormalities. I find no evidence for an infection in this patient, however, under the circumstances, I think it would be dawson to treat her with some broad- spectrum antibiotics and place her into observation to see if the bandemia comes down. I will start her on levofloxacin. The patient will also be given IV fluid and a 4 g Mg-rider. 04/09/20 01:06 Test results discussed with the patient. I explained my recommendation to placement observation to treat her with antibiotics, IV fluid, IV magnesium, and insulin. She agreed. She stated that she she would normally take 18 units of aspart (Novolog) insulin for a blood glucose of 283. We do not have aspart insulin, do have regular insulin, therefore I will order 18 units of that. Case discussed with Dr. Luis at 01:03. He agreed to place the patient into observation. He asked that I write bridge orders. 04/09/20 01:19 We will obtain 2 sets of blood cultures and a urine sample for urinalysis prior to the levofloxacin being given. 04/09/20 02:30 The patient has already been transferred to the medical floor. Her urinalysis is remarkable for 3+ occult blood with 20-30 RBCs, 1+ leukocyte esterase with too numerous to count WBCs, nitrate positive with many bacteria, and 5-10 squamous epithelial cells. The patient's urinalysis is consistent with a UTI. A urine culture has been ordered. Departure - Departure Time of Disposition: 01:07 Disposition: Refer to Observation Condition: Good Clinical Impression: QT prolongation, COVID-19, Bandemia without diagnosis of specific infection, Hyperglycemia due to type 2 diabetes mellitus, Hypomagnesemia, UTI (urinary tra ct infection) - Discharge Information *PRESCRIPTION DRUG MONITORING PROGRAM REVIEWED*: Not Applicable *COPY OF PRESCRIPTION DRUG MONITORING REPORT IN PATIENT CAR: Not Applicable Sepsis Event Note (ED) - Evaluation Sepsis Screening Result: No Definite Risk - Focused Exam Vital Signs: Vital Signs Temp Pulse Resp BP Pulse Ox 04/08/20 23:05 36.8 C 108 H 20 151/81 H 94 L - My Orders Last 24 Hours: My Active Orders 04/08/20 23:20 Chest 2V [CR] Stat 04/08/20 23:21 EKG Documentation Completion [RC] STAT 04/09/20 00:59 Magnesium Sulfate/Water [Magnesium Sulfate in Water Premix] 4 gm Premix Bag 1 bag IV ONETIME 04/09/20 01:00 Sodium Chloride 0.9% [Normal Saline] 1,000 ml IV ASDIRECTED 04/09/20 01:05 CULTURE BLOOD [BC] Stat 04/09/20 01:17 Blood Culture x2 Reflex Set [OM.PC] Stat 04/09/20 01:18 CULTURE BLOOD [BC] Stat 04/09/20 01:47 CULTURE URINE [RM] Stat - Assessment/Plan Last 24 Hours: My Active Orders 04/08/20 23:20 Chest 2V [CR] Stat 04/08/20 23:21 EKG Documentation Completion [RC] STAT 04/09/20 00:59 Magnesium Sulfate/Water [Magnesium Sulfate in Water Premix] 4 gm Premix Bag 1 bag IV ONETIME 04/09/20 01:00 Sodium Chloride 0.9% [Normal Saline] 1,000 ml IV ASDIRECTED 04/09/20 01:05 CULTURE BLOOD [BC] Stat 04/09/20 01:17 Blood Culture x2 Reflex Set [OM.PC] Stat 04/09/20 01:18 CULTURE BLOOD [BC] Stat 04/09/20 01:47 CULTURE URINE [RM] Stat
[2020-04-09] MEDS ORDERED: Levofloxacin/Dextrose 5%-Water 750 MG in Premix Bag 1 BAG IV STA (00:59)
[2020-04-09] MEDS ORDERED: Magnesium Sulfate/Water 4 GM in Premix Bag 1 BAG IV ONE (00:59)
[2020-04-09] MEDS ORDERED: Insulin Regular, Human 100 Units/ML 3 ML Vial SUBCUT STA (01:03)
[2020-04-09] MEDS: Sodium Chloride 0.9% 1,000 ML IV SCH ×3 (01:13→18:42)
[2020-04-09] MEDS ORDERED: Levofloxacin/Dextrose 5%-Water 750 MG in Premix Bag 1 BAG IV ONE (01:30)
[2020-04-09] MEDS: Acetaminophen 325 MG Tab PO PRN (03:18)
[2020-04-09] MEDS ORDERED: Ondansetron 4 MG/2 ML SDV ONE (04:11)
[2020-04-09] MEDS ORDERED: Ondansetron 4 MG/2 ML SDV IVPUSH ONE (04:15)
[2020-04-09] MEDS ORDERED: LORazepam 2 MG/ML SDV IVPUSH PRN (04:19)
[2020-04-09] MEDS ORDERED: Metoprolol Tartrate 5 MG/5 ML SDV IVPUSH PRN (04:20)
[2020-04-09] MEDS ORDERED: LORazepam 2 MG/ML SDV ONE (04:20)
[2020-04-09] MEDS ORDERED: hydrALAZINE 20 MG/ML SDV IVPUSH PRN (04:21)
[2020-04-09] MEDS ORDERED: Sodium Chloride 0.9% 1,000 ML IV ONE (06:48)
--- NOTE | 2020-04-09 07:09 | PCM.HP.2 ---
H&P History of Present Illness - General Date of Service: 04/09/20 Admit Problem/Dx: Admission Diagnosis/Problem Admission Diagnosis/Problem Bandemia Source of Information: Patient, Provider, RN Notes Reviewed History Limitations: Reports: No Limitations - History of Present Illness Initial Comments - Free Text/Narative: This is a 44 yo female with past medical hx/o HTN, HLD, DM2, Active Smoker and Obesity who was admitted overnight for worsening Covid-19 Infection associated with back and was diagnosed with Pyelonephritis. She states she was diagnosed in [facility] for covid-19 on 03/26/2020. She was symptomatic at that time but never received any treatment. She did complete her quarantine protocol but her symptoms continue to get worse. She has been having on and off fever. No chest pain or shortness of breath but has a non productive cough. Her appetite has not been great. She has loss of sense of smell and taste. She feels fatigue and has had generalized body aches. Her initial work work revealed a CBC remarkable for WBC of 11.74 but improved to 3.3 with neutrophils count of 76%. Her d-dimer was mildly elevated at 0.76 and 0.90. Her most recent chemistry reveals a CO2 of 19, AG of 20.6, BS of 225, LA of 2.8, Ca of 8.3, AST of 57, ALT of 70, proBNP of 306, Albumin of 3.1 and Vit D level of 7.0. His UA shows pyuria. Patient was admitted for UTI. Right Lower Back Pain Score (Numeric/FACES): 5 - Related Data Allergies/Adverse Reactions: Allergies Allergy/AdvReac Type Severity Reaction Status Date / Time No Known Allergies Allergy Verified 04/09/20 06:08 Home Medications: Home Meds Aspirin [Halfprin] 81 mg PO DAILY 09/04/17 [History] metFORMIN [Glucophage XR] 1,000 mg PO BIDMEALS 09/04/17 [History] Enalapril [Vasotec] 10 mg PO DAILY 08/21/18 [History] Liraglutide [Victoza] 1.8 mg SUBCUT DAILY 08/21/18 [History] Mirtazapine 45 mg PO QPM PRN 08/21/18 [History] Insulin Aspart [NovoLOG] 0 unit SQ WITHMEALSANDBED #1 vial 12/31/18 [Rx] Insulin Aspart [NovoLOG] 3 unit SQ TIDAC #1 vial 12/31/18 [Rx] Insulin Glarg,Human.Rec.Analog [Lantus] 15 unit SUBCUT QPM #1 vial 12/31/18 [Rx] Rosuvastatin [Crestor] 40 mg PO DAILY #30 tablet 12/31/18 [Rx] Past Medical History Cardiovascular History: Reports: High Cholesterol, Hypertension Gastrointestinal History: Reports: Other (See Below) Other Gastrointestinal History: galstones 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 History: Reports: Psychiatric History: Reports: Anxiety Endocrine/Metabolic History: Reports: Diabetes, Type II, Obesity/BMI 30+ - Past Surgical History GI Surgical History: Reports: Cholecystectomy Social & Family History - Family History Family Medical History: No Pertinent Family History Cardiac: Reports: None Respiratory: Reports: None GI: Reports: None : Reports: None OBGYN: Reports: None Psychiatric: Reports: None Endocrine/Metabolic: Reports: Diabetes, Type I - Tobacco Use Tobacco Use Status *Q: Current Some Day Tobacco User Years of Tobacco use: 26 Packs/Tins Daily: 0.2 Tobacco Use Comment: Since 18 yrs old Second Hand Smoke Exposure: No - Caffeine Use Caffeine Use: Reports: Soda - Alcohol Use Days Per Week of Alcohol Use: 1 Number of Drinks Per Day: 5 Total Drinks Per Week: 5 - Recreational Drug Use Recreational Drug Use: No - Living Situation & Occupation Living situation: Reports: Single, with Family (6 kids + their father) Occupation: Employed (medical office secretary) H&P Review of Systems - Review of Systems: Review Of Systems: See Below General: Reports: Fever, Chills, Malaise, Weakness, Fatigue HEENT: Reports: Other (loss of sense of smell and taste). Denies: Contact Lenses Pulmonary: Reports: Shortness of Breath, Cough Cardiovascular: Denies: Chest Pain, Dyspnea on Exertion, Lightheadedness Gastrointestinal: Reports: Decreased Appetite. Denies: Abdominal Pain, Nausea, Vomiting Genitourinary: Denies: Dysuria, Burning, Urgency Musculoskeletal: Reports: Back Pain Skin: Denies: Bruising, Pruritis, Rash Psychiatric: Denies: Depression, Anxiety Neurological: Denies: Dizziness, Seizure, Syncope Hematologic/Lymphatic: Reports: No Symptoms Immunologic: Reports: No Symptoms Exam - Exam Exam: See Below - Vital Signs Vital Signs: Last Vital Signs Temp 38.1 C 04/09/20 05:14 Pulse 111 H 04/09/20 05:14 Resp 38 H 04/09/20 05:14 BP 138/64 04/09/20 05:14 Pulse Ox 98 04/09/20 05:14 Weight: 94.665 kg - Exam Quality Assessment: No: Supplemental Oxygen General: Alert, Oriented, Cooperative. No: Mild Distress HEENT: Conjunctiva Clear, EACs Clear, EOMI, Hearing Intact, Mucosa Moist & [place], Nares Patent, Normal Nasal Septum, Posterior Pharynx Clear, Pupils Equal Neck: Supple, Trachea Midline Lungs: Clear to Auscultation, Normal Respiratory Effort Cardiovascular: Regular Rhythm, Tachycardia GI/Abdominal Exam: Normal Bowel Sounds, Soft, Non-Tender, No Organomegaly, No Distention, No Abnormal Bruit (Female) Exam: Deferred Rectal (Female) Exam: Deferred Back Exam: Normal Inspection, Full Range of Motion Extremities: Normal Inspection, Normal Range of Motion, Non-Tender, No Pedal Edema, Normal Capillary Refill Peripheral Pulses: 2+: Dorsalis Pedis (L), Dorsalis Pedis (R) Skin: Warm, Dry, Intact Neuro Extensive - Mental Status: Oriented x3, Normal Cognition, Memory Intact Neuro Extensive - Motor, Sensory, Reflexes: CN II-XII Intact, Normal Gait Psychiatric: Alert, Normal Affect, Normal Mood - Patient Data Lab Results Last 24 hrs: Laboratory Results - last 24 hr 04/08/20 04/08/20 04/08/20 Range/Units 23:37 23:37 23:37 WBC 11.74 H (3.98-10.04) K/mm3 RBC 4.87 (3.98-5.22) M/mm3 Hgb 11.7 (11.2-15.7) gm/dl Hct 38.0 (34.1-44.9) % MCV 78.0 L (79.4-94.8) fl MCH 24.0 L (25.6-32.2) pg MCHC 30.8 L (32.2-35.5) g/dl RDW Std Deviation 45.0 (36.4-46.3) fL Plt Count 231 (182-369) K/mm3 MPV 9.4 (9.4-12.3) fl Neutrophils % (Manual) 72 H (40-60) % Band Neutrophils % 21 H (0-10) % Lymphocytes % (Manual) 5 L (20-40) % Atypical Lymphs % 0 % Monocytes % (Manual) 2 (2-10) % Eosinophils % (Manual) 0 L (0.7-5.8) % Basophils % (Manual) 0 L (0.1-1.2) Platelet Estimate Adequate Plt Morphology Comment Normal Polychromasia Hypochromasia 1+ slight Anisocytosis 1+ slight Microcytosis 2+ moderate RBC Morph Comment Not Reportable D-Dimer, Quantitative 0.76 H (0.19-0.50) mg/L Sodium 136 (136-145) mEq/L Potassium 3.8 (3.5-5.1) mEq/L Chloride 101 (98-107) mEq/L Carbon Dioxide 22 (21-32) mEq/L Anion Gap 16.8 H (5-15) BUN 9 (7-18) mg/dL Creatinine 0.8 (0.55-1.02) mg/dL Est Cr Clr Drug Dosing 95.74 mL/min Estimated GFR (MDRD) > 60 (>60) mL/min BUN/Creatinine Ratio 11.3 L (14-18) Glucose 283 H (74-106) mg/dL POC Glucose (70-105) mg/dL Lactic Acid (0.4-2.0) mmol/L Calcium 8.4 L (8.5-10.1) mg/dL Magnesium 1.4 L (1.8-2.4) mg/dl Total Bilirubin 0.9 (0.2-1.0) mg/dL AST 57 H (15-37) U/L ALT 70 H (14-59) U/L Alkaline Phosphatase 83 (46-116) U/L Troponin I < 0.017 (0.00-0.056) ng/mL NT-Pro-B Natriuret Pep (0-125) pg/mL Total Protein 7.5 (6.4-8.2) g/dl Albumin 3.1 L (3.4-5.0) g/dl Globulin 4.4 gm/dL Albumin/Globulin Ratio 0.7 L (1-2) TSH 3rd Generation 0.779 (0.358-3.74) uIU/mL Urine Color (Yellow) Urine Appearance (Clear) Urine pH (5.0-8.0) Ur Specific Flinton (1.005-1.030) Urine Protein (Negative) Urine Glucose (UA) (Negative) Urine Ketones (Negative) Urine Occult Blood (Negative) Urine Nitrite (Negative) Urine Bilirubin (Negative) Urine Urobilinogen (0.2-1.0) Ur Leukocyte Esterase (Negative) U Hyaline Cast (Auto) (0-5) /lpf Urine RBC (0-5) /hpf Urine WBC (0-5) /hpf Urine WBC Clumps (NOT SEEN) /hpf Ur Squamous Epith Cells (0-5) /hpf Urine Bacteria (FEW) /hpf Urine Mucus (FEW) /hpf 04/08/20 04/08/20 04/09/20 Range/Units 23:37 23:37 01:47 WBC (3.98-10.04) K/mm3 RBC (3.98-5.22) M/mm3 Hgb (11.2-15.7) gm/dl Hct (34.1-44.9) % MCV (79.4-94.8) fl MCH (25.6-32.2) pg MCHC (32.2-35.5) g/dl RDW Std Deviation (36.4-46.3) fL Plt Count (182-369) K/mm3 MPV (9.4-12.3) fl Neutrophils % (Manual) (40-60) % Band Neutrophils % (0-10) % Lymphocytes % (Manual) (20-40) % Atypical Lymphs % % Monocytes % (Manual) (2-10) % Eosinophils % (Manual) (0.7-5.8) % Basophils % (Manual) (0.1-1.2) Platelet Estimate Plt Morphology Comment Polychromasia Hypochromasia Anisocytosis Microcytosis RBC Morph Comment D-Dimer, Quantitative (0.19-0.50) mg/L Sodium (136-145) mEq/L Potassium (3.5-5.1) mEq/L Chloride (98-107) mEq/L Carbon Dioxide (21-32) mEq/L Anion Gap (5-15) BUN (7-18) mg/dL Creatinine (0.55-1.02) mg/dL Est Cr Clr Drug Dosing mL/min Estimated GFR (MDRD) (>60) mL/min BUN/Creatinine Ratio (14-18) Glucose (74-106) mg/dL POC Glucose (70-105) mg/dL Lactic Acid 1.0 (0.4-2.0) mmol/L Calcium (8.5-10.1) mg/dL Magnesium (1.8-2.4) mg/dl Total Bilirubin (0.2-1.0) mg/dL AST (15-37) U/L ALT (14-59) U/L Alkaline Phosphatase (46-116) U/L Troponin I (0.00-0.056) ng/mL NT-Pro-B Natriuret Pep 306 H (0-125) pg/mL Total Protein (6.4-8.2) g/dl Albumin (3.4-5.0) g/dl Globulin gm/dL Albumin/Globulin Ratio (1-2) TSH 3rd Generation (0.358-3.74) uIU/mL Urine Color Rama H (Yellow) Urine Appearance Cloudy H (Clear) Urine pH 6.0 (5.0-8.0) Ur Specific [place] 1.025 (1.005-1.030) Urine Protein 3+ H (Negative) Urine Glucose (UA) 2+ H (Negative) Urine Ketones 4+ H (Negative) Urine Occult Blood 3+ H (Negative) Urine Nitrite Positive H (Negative) Urine Bilirubin Negative (Negative) Urine Urobilinogen 0.2 (0.2-1.0) Ur Leukocyte Esterase 1+ H (Negative) U Hyaline Cast (Auto) 0-5 (0-5) /lpf Urine RBC 20-30 H (0-5) /hpf Urine WBC Too numerous to cnt H (0-5) /hpf Urine WBC Clumps Many (NOT SEEN) /hpf Ur Squamous Epith Cells 5-10 H (0-5) /hpf Urine Bacteria Many H (FEW) /hpf Urine Mucus Few (FEW) /hpf 04/09/20 04/09/20 04/09/20 Range/Units 04:23 05:06 05:06 WBC 3.30 L (3.98-10.04) K/mm3 RBC 4.57 (3.98-5.22) M/mm3 Hgb 11.0 L (11.2-15.7) gm/dl Hct 35.7 (34.1-44.9) % MCV 78.1 L (79.4-94.8) fl MCH 24.1 L (25.6-32.2) pg MCHC 30.8 L (32.2-35.5) g/dl RDW Std Deviation 45.3 (36.4-46.3) fL Plt Count 198 (182-369) K/mm3 MPV 9.7 (9.4-12.3) fl Neutrophils % (Manual) 76 H (40-60) % Band Neutrophils % 10 (0-10) % Lymphocytes % (Manual) 14 L (20-40) % Atypical Lymphs % 0 % Monocytes % (Manual) 0 L (2-10) % Eosinophils % (Manual) 0 L (0.7-5.8) % Basophils % (Manual) 0 L (0.1-1.2) Platelet Estimate Adequate Plt Morphology Comment Normal Polychromasia 1+ slight Hypochromasia 1+ slight Anisocytosis 2+ moderate Microcytosis RBC Morph Comment Abnormal D-Dimer, Quantitative (0.19-0.50) mg/L Sodium 138 (136-145) mEq/L Potassium 3.6 (3.5-5.1) mEq/L Chloride 102 (98-107) mEq/L Carbon Dioxide 19 L (21-32) mEq/L Anion Gap 20.6 H (5-15) BUN 7 (7-18) mg/dL Creatinine 0.9 (0.55-1.02) mg/dL Est Cr Clr Drug Dosing 85.10 mL/min Estimated GFR (MDRD) > 60 (>60) mL/min BUN/Creatinine Ratio 7.8 L (14-18) Glucose 225 H (74-106) mg/dL POC Glucose 230 H (70-105) mg/dL Lactic Acid (0.4-2.0) mmol/L Calcium 8.3 L (8.5-10.1) mg/dL Magnesium 2.4 (1.8-2.4) mg/dl Total Bilirubin (0.2-1.0) mg/dL AST (15-37) U/L ALT (14-59) U/L Alkaline Phosphatase (46-116) U/L Troponin I (0.00-0.056) ng/mL NT-Pro-B Natriuret Pep (0-125) pg/mL Total Protein (6.4-8.2) g/dl Albumin (3.4-5.0) g/dl Globulin gm/dL Albumin/Globulin Ratio (1-2) TSH 3rd Generation (0.358-3.74) uIU/mL Urine Color (Yellow) Urine Appearance (Clear) Urine pH (5.0-8.0) Ur Specific [place] (1.005-1.030) Urine Protein (Negative) Urine Glucose (UA) (Negative) Urine Ketones (Negative) Urine Occult Blood (Negative) Urine Nitrite (Negative) Urine Bilirubin (Negative) Urine Urobilinogen (0.2-1.0) Ur Leukocyte Esterase (Negative) U Hyaline Cast (Auto) (0-5) /lpf Urine RBC (0-5) /hpf Urine WBC (0-5) /hpf Urine WBC Clumps (NOT SEEN) /hpf Ur Squamous Epith Cells (0-5) /hpf Urine Bacteria (FEW) /hpf Urine Mucus (FEW) /hpf 04/09/20 Range/Units 05:06 WBC (3.98-10.04) K/mm3 RBC (3.98-5.22) M/mm3 Hgb (11.2-15.7) gm/dl Hct (34.1-44.9) % MCV (79.4-94.8) fl MCH (25.6-32.2) pg MCHC (32.2-35.5) g/dl RDW Std Deviation (36.4-46.3) fL Plt Count (182-369) K/mm3 MPV (9.4-12.3) fl Neutrophils % (Manual) (40-60) % Band Neutrophils % (0-10) % Lymphocytes % (Manual) (20-40) % Atypical Lymphs % % Monocytes % (Manual) (2-10) % Eosinophils % (Manual) (0.7-5.8) % Basophils % (Manual) (0.1-1.2) Platelet Estimate Plt Morphology Comment Polychromasia Hypochromasia Anisocytosis Microcytosis RBC Morph Comment D-Dimer, Quantitative (0.19-0.50) mg/L Sodium (136-145) mEq/L Potassium (3.5-5.1) mEq/L Chloride (98-107) mEq/L Carbon Dioxide (21-32) mEq/L Anion Gap (5-15) BUN (7-18) mg/dL Creatinine (0.55-1.02) mg/dL Est Cr Clr Drug Dosing mL/min Estimated GFR (MDRD) (>60) mL/min BUN/Creatinine Ratio (14-18) Glucose (74-106) mg/dL POC Glucose (70-105) mg/dL Lactic Acid 2.8 H* (0.4-2.0) mmol/L Calcium (8.5-10.1) mg/dL Magnesium (1.8-2.4) mg/dl Total Bilirubin (0.2-1.0) mg/dL AST (15-37) U/L ALT (14-59) U/L Alkaline Phosphatase (46-116) U/L Troponin I (0.00-0.056) ng/mL NT-Pro-B Natriuret Pep (0-125) pg/mL Total Protein (6.4-8.2) g/dl Albumin (3.4-5.0) g/dl Globulin gm/dL Albumin/Globulin Ratio (1-2) TSH 3rd Generation (0.358-3.74) uIU/mL Urine Color (Yellow) Urine Appearance (Clear) Urine pH (5.0-8.0) Ur Specific [place] (1.005-1.030) Urine Protein (Negative) Urine Glucose (UA) (Negative) Urine Ketones (Negative) Urine Occult Blood (Negative) Urine Nitrite (Negative) Urine Bilirubin (Negative) Urine Urobilinogen (0.2-1.0) Ur Leukocyte Esterase (Negative) U Hyaline Cast (Auto) (0-5) /lpf Urine RBC (0-5) /hpf Urine WBC (0-5) /hpf Urine WBC Clumps (NOT SEEN) /hpf Ur Squamous Epith Cells (0-5) /hpf Urine Bacteria (FEW) /hpf Urine Mucus (FEW) /hpf Result Diagrams: 04/09/20 05:06 04/09/20 05:06 Sepsis Event Note - Evaluation Sepsis Screening Result: Severe Sepsis Risk Current Stage of Sepsis: Sepsis Possible Source of Sepsis: Genitourinary - Focused Exam Sepsis Event Note Statement: Focused Sepsis Exam Completed Vital Signs: Vital Signs Temp Temp Pulse Pulse Resp BP BP 04/09/20 05:14 38.1 C 111 H 38 H 138/64 04/09/20 05:00 38.8 C H 108 H 40 H 129/48 L 04/09/20 04:38 39.3 C H 99 40 H 152/53 H 04/09/20 04:26 115 H 168/86 H 04/09/20 04:17 130 H 40 H 04/09/20 04:15 38.8 C H 132 H 157/108 H 04/09/20 02:18 37.6 C 107 H 16 143/84 H 04/08/20 23:05 36.8 C 108 H 20 151/81 H Pulse Ox 04/09/20 05:14 98 04/09/20 05:00 99 04/09/20 04:38 96 04/09/20 04:26 04/09/20 04:17 100 04/09/20 04:15 100 04/09/20 02:18 98 04/08/20 23:05 94 L Respiratory Effort Without Exertion: Other (see below) (Tachypneic) Heart Sounds: Other (see below) (Tahycardiac) Problem List Initiated/Reviewed/Updated: Yes Orders Last 24hrs: Active Orders 24 hr Category Date Time Status Patient Status [ADT] Routine ADT 04/09/20 01:58 Active Blood Glucose Check, Bedside [RC] QIDACANDBED Care 04/09/20 02:53 Active Up With Assistance [RC] ASDIRECTED Care 04/09/20 02:53 Active [place] Diet [DIET] Diet 04/09/20 Breakfast Active Chest 2V [CR] Stat Exams 04/08/20 23:20 Taken CBC WITH MANUAL DIFF [HEME] Routine Lab 04/09/20 05:06 Results CULTURE BLOOD [BC] Stat Lab 04/09/20 01:05 Received CULTURE BLOOD [BC] Stat Lab 04/09/20 01:18 Received CULTURE URINE [RM] Stat Lab 04/09/20 01:47 Received D-DIMER QUANTITATIVE [COAG] Routine Lab 04/09/20 06:58 Ordered LACTIC ACID W/ REFLEX [LACTATE SEPSIS W/ REFLEX] [CHEM] Lab 04/09/20 08:06 Ordered Routine Acetaminophen [TylenoL] Med 04/09/20 02:48 Active 650 mg PO Q4H PRN LORazepam [Ativan] Med 04/09/20 04:19 Active 1 mg IVPUSH Q4H PRN Levofloxacin/Dextrose 5%-Water [Levaquin in D5W 750 MG/ Med 04/09/20 21:00 Active 150 ML] 750 mg Premix Bag 1 bag IV Q24H Metoprolol Tartrate [Lopressor] Med 04/09/20 04:20 Active 5 mg IVPUSH Q4H PRN Sodium Chloride 0.9% [Normal Saline] 1,000 ml Med 04/09/20 01:00 Active IV ASDIRECTED Sodium Chloride 0.9% [Normal Saline] 1,000 ml Med 04/09/20 06:48 Active IV ONETIME hydrALAZINE [Apresoline] Med 04/09/20 04:21 Active 20 mg IVPUSH Q4H PRN Blood Culture x2 Reflex Set [OM.PC] Stat Oth 04/09/20 01:17 Ordered Resuscitation Status Routine Resus Stat 04/09/20 02:51 Ordered EKG 12 Lead [EK] AM Ther 04/09/20 05:11 Ordered Medication Orders Acetaminophen (Tylenol) 650 mg PO Q4H PRN PRN Reason: Pain Last Admin: 04/09/20 03:18 Dose: 650 mg Documented by: NAVID Hydralazine HCl (Apresoline) 20 mg IVPUSH Q4H PRN PRN Reason: Hypertension Last Admin: 04/09/20 04:30 Dose: 20 mg Documented by: EDWARD Sodium Chloride (Normal Saline) 1,000 mls @ 150 mls/hr IV ASDIRECTED EMEKA Last Admin: 04/09/20 01:13 Dose: 150 mls/hr Documented by: STEVE Levofloxacin/Dextrose 750 mg/ (Premix) 150 mls @ 100 mls/hr IV Q24H EMEKA Sodium Chloride (Normal Saline) 1,000 mls @ 999 mls/hr IV ONETIME ONE Stop: 04/09/20 07:48 Lorazepam (Ativan) 1 mg IVPUSH Q4H PRN PRN Reason: Anxiety Last Admin: 04/09/20 04:23 Dose: 1 mg Documented by: EDWARD Metoprolol Tartrate (Lopressor) 5 mg IVPUSH Q4H PRN PRN Reason: Tachycardia Last Admin: 04/09/20 04:26 Dose: 5 mg Documented by: EDWARD Assessment/Plan Comment:: This is a 44 yo female with past medical hx/o HTN, HLD, DM2, Active Smoker and Obesity who was admitted overnight for worsening Covid-19 Infection associated with back and was diagnosed with Pyelonephritis. Assessment: Acute: Moderate Sepsis 2/2 Pyelonephritis and Covid-19 Infection, POA * She meets criteria on admission * Tachycardic, tachypneic, borderline low blood pressure and a temp as high as 39.3 C * WBC of 11.74 and LA of 2.8 * She is a bit better clinically * She is now on RA sating well * Continue IV Levaquin 750 mg daily Pyelonephritis * Positive for bilateral CVA tenderness: R>L * UA is positive for pyuria * Urine Cx shows GNR * Continue intravenous quinolone Viral Pneumonitis/Atypical Pneumonia, POA * Diagnosed at [facility] on 03/26/2020 * She never received any treatment * No monoclonol antibodies given: Shona or Regeneron * She was told to quarantine * CXR report read as minimal density within the right middle love with additional mild atelectasis likely represent COVID-19 pneumonia * Dexamethasone 10 mg po daily fro 5 days, Zinc and Vit d supplement, intravenous abx with Levaquin daily * Day 14 fo viral infection, unlikely she would benefit with Veklury. Ferritin and LDH are wnl. She is now on RA sating adequately. * Sputum Cx with gram stain, PRN decongestant/expectorant and IS as directed Bacteremia from Pyelonephritis, POA * 2/4 bottles * Positive for GNR * On intravenous 750 mg Levaquin daily Hypoxia with O2 satin the 80s * She is an active smoker * Has active covid -19 infection * She was initially on 4L but slowly titrated down * Currently on RA sating adequately Febrile Illness, POA * Had a temp as high as 39.3C * Has anti-pyretic agents * Currently afebrile Leukocytosis with initial WBC of 11.74 * Repeat WBC is 3.3 * Treatment as above * We will monitor Normocytic Hypochromic Anemia with Hgb of 11 grams * No report or active bleeding or melena * This is likely due to acute illness * We will monitor Mildly Elevated D-dimer of 0.76 and 0.90, POA * She is on RA sating adequately * Lovenox 40 mg sub daily fro DVT prophylaxis Increased AG Metabolic Acidosis, POA * Due to sepsis * AG of 20.6 and LA of 2.8 * CO2 of 19 * Currently hydrating * We will monitor Lactic Acidosis, resolved * This from sepsis * LA of 2.8--> now 1.1 Hyperglycemia with DM2 * BS not well controlled * BS in the 200s-300s * She is on steroid as part of Covid treatment regimen * Accu-check TID with high intensity ISS and Lantus 20 units subQ BID Hypocalcemia with Non-corrected CA of 8.3 * Corrected CA is 9.0mg /dl * We will monitor Hypomagnesemia with initial Mg level of 1.4 * Likely from poor nutritional intake * We will replete and monitor Elevated Liver Enzymes, POA * AST of 57 an ALT of 70 * We will hold statin for now and resume it in a couple of days Elevated proBNP of 306, POA * She is not volume overloaded * We will monitor Hypoalbuminemia with Albumin of 3.1, POA * Likely due to acute illness and poor nutritional intake Vit D Deficiency * Vit D level of 7.0 * Start Vit D supplement Class I Obese * BMI of 30.8 * Dietary consult for weight management Nicotine Dependence * Counseled on smoking cessation * Nicotine patch daily Generalized Weakness * Likely form acute illness * Also Vit D deficient * PT/OT consult Sinus Tachycardia nd Tachypnea * Due to sepsis * She is on Telemetry Chronic: HTN, HLD, DM2, Active Smoker and Obesity Plan: She was admitted overnight by ED provider. Change admission status to inpatient. Continue current treatment. Monitor for worsening sepsis. IV fluids for hydration. LA is now back to normal after initial volume resuscitation. Vit. D, Zinc, and Oral steroid for COVID-19 treatment. She is almost 14 days into her illness, unlikely she would benefit with Veklury. AHA/ADA diet. Accu-check TID with ISS and Lantus 20 units subQ BID. RT to assess and treat. PT/OT for generalized weakness. Critical care time spent: > 40 mins. - Mortality Measure Prognosis:: Good
[2020-04-09] MEDS ORDERED: Mirtazapine 30 MG Tab PO PRN (07:14)
[2020-04-09] MEDS ORDERED: Ondansetron 4 MG/2 ML SDV IV PRN (07:27)
[2020-04-09] MEDS ORDERED: Albuterol/Ipratropium 3.0-0.5 MG/3 ML Neb Soln NEB PRN (07:27)
[2020-04-09] MEDS ORDERED: Zolpidem 5 MG Tab PO PRN (07:27)
[2020-04-09] MEDS ORDERED: Ibuprofen 600 MG Tab PO PRN (07:27)
[2020-04-09] MEDS ORDERED: HYDROmorphone 0.5 MG/0.5 ML Syringe IVPUSH PRN (07:27)
[2020-04-09] MEDS ORDERED: Polyethylene Glycol 3350 Powder 17 GM Packet PO PRN (07:27)
[2020-04-09] MEDS ORDERED: Acetaminophen/HYDROcodone 325-5 MG Tab PO PRN (07:27)
[2020-04-09] MEDS ORDERED: Promethazine 12.5 MG in Sodium Chloride 0.9% 50 ML IV PRN (07:27)
--- NOTE | 2020-04-09 07:50 | CR ---
Chest: 2 views of the chest were obtained. Comparison: Prior chest x-ray of 12/29/18. Heart size and mediastinum are normal. Slight atelectasis is noted on the lateral view which appears to be on the right side. Very minimal density within the right middle lobe is seen. Lungs otherwise are clear. Bony structures appear within normal limits. Surgical clips are noted from prior cholecystectomy. Impression: 1. Minimal density within the right middle lobe with additional mild atelectasis. Findings most likely represent mild COVID pneumonia. 2. No other acute finding is seen. Diagnostic code #3
[2020-04-09] MEDS ORDERED: Rosuvastatin 10 MG Tab PO SCH (09:00)
[2020-04-09] MEDS: Aspirin 81 MG Tab.EC PO SCH (09:18)
[2020-04-09] MEDS: Enalapril 5 MG Tab PO SCH (09:19)
[2020-04-09] MEDS: Enoxaparin 40 MG/0.4 ML Syringe SUBCUT SCH (09:20)
[2020-04-09] MEDS ORDERED: Insulin Lispro 100 Units/ML 3 ML Vial SUBCUT SCH (11:00)
[2020-04-09] MEDS: VICTOZA SUBCUT SCH (11:37)
[2020-04-09] MEDS ORDERED: Dexamethasone 4 MG Tab PO ONE (13:03)
[2020-04-09] MEDS ORDERED: guaiFENesin/Dextromethorphan 100-10 MG/5 ML Soln 5 ML Cup PO PRN (14:33)
[2020-04-09] MEDS ORDERED: Insulin Glarg,Human.Rec.Analog 100 Unit/ML SUBCUT SCH ×3 (18:00)
[2020-04-09] MEDS: Levofloxacin/Dextrose 5%-Water 750 MG in Premix Bag 1 BAG IV SCH (20:36)
[2020-04-10] MEDS: Sodium Chloride 0.9% 1,000 ML IV SCH (03:27)
--- NOTE | 2020-04-10 07:29 | PCM.PN ---
- General Info Date of Service: 04/10/20 Admission Dx/Problem (Free Text): Admission Diagnosis/Problem Admission Diagnosis/Problem Bandemia Subjective Update: No overnight or acute issues. She is doing much better. She has no complaints this AM. Functional Status: Reports: Pain Controlled, Tolerating Diet, Ambulating, Urinating. Denies: New Symptoms - Review of Systems General: Denies: Fever, Weakness, Fatigue, Malaise, Chills HEENT: Reports: Contact Lenses Pulmonary: Reports: Cough. Denies: Shortness of Breath Cardiovascular: Reports: Edema (on right arm from a blown IV access). Denies: Chest Pain Gastrointestinal: Denies: Abdominal Pain, Nausea, Vomiting Genitourinary: Denies: Dysuria, Frequency, Burning Musculoskeletal: Denies: Joint Pain Skin: Denies: Bruising, Pruritis, Rash Neurological: Denies: Confusion, Difficulty Walking, Weakness, Gait Disturbance Psychiatric: Denies: Confusion, Anxiety - Patient Data Vitals - Most Recent: Last Vital Signs Temp 36.9 C 04/10/20 00:06 Pulse 80 04/10/20 00:06 Resp 16 04/10/20 00:06 BP 134/77 04/10/20 00:06 Pulse Ox 98 04/10/20 00:06 Weight - Most Recent: 97.477 kg I&O - Last 24 Hours: Intake & Output 04/09/20 04/10/20 04/10/20 22:59 06:59 14:59 Intake Total 3062 2160 Output Total 1200 750 Balance 1862 1410 Lab Results Last 24 Hours: Laboratory Results - last 24 hr 04/09/20 04/09/20 04/09/20 Range/Units 07:45 08:20 08:20 WBC (3.98-10.04) K/mm3 RBC (3.98-5.22) M/mm3 Hgb (11.2-15.7) gm/dl Hct (34.1-44.9) % MCV (79.4-94.8) fl MCH (25.6-32.2) pg MCHC (32.2-35.5) g/dl RDW Std Deviation (36.4-46.3) fL Plt Count (182-369) K/mm3 MPV (9.4-12.3) fl Neut % (Auto) (34.0-71.1) % Lymph % (Auto) (19.3-51.7) % [place] % (Auto) (4.7-12.5) % Eos % (Auto) (0.7-5.8) Baso % (Auto) (0.1-1.2) % Neut # (Auto) (1.56-6.13) K/mm3 Lymph # (Auto) (1.18-3.74) K/mm3 [place] # (Auto) (0.24-0.36) K/mm3 Eos # (Auto) (0.04-0.36) K/mm3 Baso # (Auto) (0.01-0.08) K/mm3 Manual Slide Review ESR (0-20) mm/hr D-Dimer, Quantitative 0.90 H (0.19-0.50) mg/L Sodium (136-145) mEq/L Potassium (3.5-5.1) mEq/L Chloride (98-107) mEq/L Carbon Dioxide (21-32) mEq/L Anion Gap (5-15) BUN (7-18) mg/dL Creatinine (0.55-1.02) mg/dL Est Cr Clr Drug Dosing mL/min Estimated GFR (MDRD) (>60) mL/min BUN/Creatinine Ratio (14-18) Glucose (74-106) mg/dL POC Glucose 178 H (70-105) mg/dL Lactic Acid 1.1 (0.4-2.0) mmol/L Calcium (8.5-10.1) mg/dL Magnesium (1.8-2.4) mg/dl Ferritin (8-252) ng/ml Lactate Dehydrogenase (81-234) U/L C-Reactive Protein (<1.0) mg/dL Vitamin D 25-Hydroxy (30.0-100.0) ng/ml Free T4 (0.76-1.46) ng/dL HCG, Qual (NEGATIVE) 04/09/20 04/09/20 04/09/20 Range/Units 08:20 08:20 08:20 WBC (3.98-10.04) K/mm3 RBC (3.98-5.22) M/mm3 Hgb (11.2-15.7) gm/dl Hct (34.1-44.9) % MCV (79.4-94.8) fl MCH (25.6-32.2) pg MCHC (32.2-35.5) g/dl RDW Std Deviation (36.4-46.3) fL Plt Count (182-369) K/mm3 MPV (9.4-12.3) fl Neut % (Auto) (34.0-71.1) % Lymph % (Auto) (19.3-51.7) % [place] % (Auto) (4.7-12.5) % Eos % (Auto) (0.7-5.8) Baso % (Auto) (0.1-1.2) % Neut # (Auto) (1.56-6.13) K/mm3 Lymph # (Auto) (1.18-3.74) K/mm3 [place] # (Auto) (0.24-0.36) K/mm3 Eos # (Auto) (0.04-0.36) K/mm3 Baso # (Auto) (0.01-0.08) K/mm3 Manual Slide Review ESR 27 H (0-20) mm/hr D-Dimer, Quantitative (0.19-0.50) mg/L Sodium (136-145) mEq/L Potassium (3.5-5.1) mEq/L Chloride (98-107) mEq/L Carbon Dioxide (21-32) mEq/L Anion Gap (5-15) BUN (7-18) mg/dL Creatinine (0.55-1.02) mg/dL Est Cr Clr Drug Dosing mL/min Estimated GFR (MDRD) (>60) mL/min BUN/Creatinine Ratio (14-18) Glucose (74-106) mg/dL POC Glucose (70-105) mg/dL Lactic Acid (0.4-2.0) mmol/L Calcium (8.5-10.1) mg/dL Magnesium (1.8-2.4) mg/dl Ferritin 55 (8-252) ng/ml Lactate Dehydrogenase 164 (81-234) U/L C-Reactive Protein (<1.0) mg/dL Vitamin D 25-Hydroxy 7.0 L (30.0-100.0) ng/ml Free T4 1.13 (0.76-1.46) ng/dL HCG, Qual (NEGATIVE) 04/09/20 04/09/20 04/09/20 Range/Units 08:20 11:04 16:56 WBC (3.98-10.04) K/mm3 RBC (3.98-5.22) M/mm3 Hgb (11.2-15.7) gm/dl Hct (34.1-44.9) % MCV (79.4-94.8) fl MCH (25.6-32.2) pg MCHC (32.2-35.5) g/dl RDW Std Deviation (36.4-46.3) fL Plt Count (182-369) K/mm3 MPV (9.4-12.3) fl Neut % (Auto) (34.0-71.1) % Lymph % (Auto) (19.3-51.7) % [place] % (Auto) (4.7-12.5) % Eos % (Auto) (0.7-5.8) Baso % (Auto) (0.1-1.2) % Neut # (Auto) (1.56-6.13) K/mm3 Lymph # (Auto) (1.18-3.74) K/mm3 [place] # (Auto) (0.24-0.36) K/mm3 Eos # (Auto) (0.04-0.36) K/mm3 Baso # (Auto) (0.01-0.08) K/mm3 Manual Slide Review ESR (0-20) mm/hr D-Dimer, Quantitative (0.19-0.50) mg/L Sodium (136-145) mEq/L Potassium (3.5-5.1) mEq/L Chloride (98-107) mEq/L Carbon Dioxide (21-32) mEq/L Anion Gap (5-15) BUN (7-18) mg/dL Creatinine (0.55-1.02) mg/dL Est Cr Clr Drug Dosing mL/min Estimated GFR (MDRD) (>60) mL/min BUN/Creatinine Ratio (14-18) Glucose (74-106) mg/dL POC Glucose 317 H 258 H (70-105) mg/dL Lactic Acid (0.4-2.0) mmol/L Calcium (8.5-10.1) mg/dL Magnesium (1.8-2.4) mg/dl Ferritin (8-252) ng/ml Lactate Dehydrogenase (81-234) U/L C-Reactive Protein (<1.0) mg/dL Vitamin D 25-Hydroxy (30.0-100.0) ng/ml Free T4 (0.76-1.46) ng/dL HCG, Qual Negative (NEGATIVE) 04/10/20 04/10/20 04/10/20 Range/Units 05:18 05:18 06:58 WBC 9.90 (3.98-10.04) K/mm3 RBC 4.29 (3.98-5.22) M/mm3 Hgb 10.3 L (11.2-15.7) gm/dl Hct 34.1 (34.1-44.9) % MCV 79.5 (79.4-94.8) fl MCH 24.0 L (25.6-32.2) pg MCHC 30.2 L (32.2-35.5) g/dl RDW Std Deviation 47.0 H (36.4-46.3) fL Plt Count 213 (182-369) K/mm3 MPV 9.8 (9.4-12.3) fl Neut % (Auto) 86.4 H (34.0-71.1) % Lymph % (Auto) 5.2 L (19.3-51.7) % [place] % (Auto) 7.8 (4.7-12.5) % Eos % (Auto) 0 L (0.7-5.8) Baso % (Auto) 0.1 (0.1-1.2) % Neut # (Auto) 8.56 H (1.56-6.13) K/mm3 Lymph # (Auto) 0.51 L (1.18-3.74) K/mm3 [place] # (Auto) 0.77 H (0.24-0.36) K/mm3 Eos # (Auto) 0.00 L (0.04-0.36) K/mm3 Baso # (Auto) 0.01 (0.01-0.08) K/mm3 Manual Slide Review Abnormal smear ESR (0-20) mm/hr D-Dimer, Quantitative (0.19-0.50) mg/L Sodium 138 (136-145) mEq/L Potassium 4.1 (3.5-5.1) mEq/L Chloride 104 (98-107) mEq/L Carbon Dioxide 18 L (21-32) mEq/L Anion Gap 20.1 H (5-15) BUN 11 (7-18) mg/dL Creatinine 0.7 (0.55-1.02) mg/dL Est Cr Clr Drug Dosing 109.41 mL/min Estimated GFR (MDRD) > 60 (>60) mL/min BUN/Creatinine Ratio 15.7 (14-18) Glucose 250 H (74-106) mg/dL POC Glucose 299 H (70-105) mg/dL Lactic Acid (0.4-2.0) mmol/L Calcium 8.3 L (8.5-10.1) mg/dL Magnesium 2.3 (1.8-2.4) mg/dl Ferritin (8-252) ng/ml Lactate Dehydrogenase (81-234) U/L C-Reactive Protein 26.6 H* (<1.0) mg/dL Vitamin D 25-Hydroxy (30.0-100.0) ng/ml Free T4 (0.76-1.46) ng/dL HCG, Qual (NEGATIVE) Kenny Results Last 24 Hours: Microbiology 04/09/20 01:18 Aerobic Blood Culture - Preliminary Blood - Venous - Lab Draw Gram Negative Rods Anaerobic Blood Culture - Preliminary Gram Negative Rods 04/09/20 01:05 Aerobic Blood Culture - Preliminary Blood - Venous Gram Negative Rods Anaerobic Blood Culture - Preliminary Gram Negative Rods 04/09/20 01:47 Urine Culture - Preliminary Urine, Clean Catch Gram Negative Rods Med Orders - Current: Current Medications Acetaminophen (Tylenol) 650 mg PO Q4H PRN PRN Reason: Pain Last Admin: 04/09/20 03:18 Dose: 650 mg Documented by: Hydrocodone Bitart/Acetaminophen ([place] 325-5 Mg) 1 tab PO Q4H PRN PRN Reason: Pain (moderate 4-6) Albuterol/Ipratropium (Duoneb 3.0-0.5 Mg/3 Ml) 3 ml NEB Q4H PRN PRN Reason: Shortness Of Breath/wheezing Aspirin (Halfprin) 81 mg PO DAILY [facility] Last Admin: 04/09/20 09:18 Dose: 81 mg Documented by: Cholecalciferol (Vitamin D3) 5,000 unit PO DAILY [facility] Dexamethasone (Dexamethasone) 10 mg PO DAILY [facility] Stop: 04/14/20 09:01 Enalapril Maleate (Vasotec) 10 mg PO DAILY [facility] Last Admin: 04/09/20 09:19 Dose: 10 mg Documented by: Enoxaparin Sodium (Lovenox) 40 mg SUBCUT DAILY [facility] Last Admin: 04/09/20 09:20 Dose: 40 mg Documented by: Guaifenesin/Phenylephrine HCl (Robitussin Dm) 10 ml PO Q4H PRN PRN Reason: Cough Hydralazine HCl (Apresoline) 20 mg IVPUSH Q4H PRN PRN Reason: Hypertension Last Admin: 04/09/20 04:30 Dose: 20 mg Documented by: Hydromorphone HCl (Dilaudid) 0.5 mg IVPUSH Q2H PRN PRN Reason: Pain (severe 7-10) Sodium Chloride (Normal Saline) 1,000 mls @ 150 mls/hr IV ASDIRECTED [facility] Last Admin: 04/10/20 03:27 Dose: 150 mls/hr Documented by: Levofloxacin/Dextrose 750 mg/ (Premix) 150 mls @ 100 mls/hr IV Q24H [facility] Last Admin: 04/09/20 20:36 Dose: 100 mls/hr Documented by: Promethazine HCl 12.5 mg/ (Sodium Chloride) 50.5 mls @ 100 mls/hr IV Q6H PRN PRN Reason: Nausea/Vomiting Ibuprofen (Motrin) 600 mg PO Q6H PRN PRN Reason: Pain (moderate 4-6) Insulin Glargine (Lantus) 20 unit SUBCUT BID [facility] Insulin Human Lispro (Humalog) 0 unit SUBCUT TIDAC [facility]; Protocol Last Admin: 04/09/20 18:03 Dose: 9 units Documented by: Lorazepam (Ativan) 1 mg IVPUSH Q4H PRN PRN Reason: Anxiety Last Admin: 04/09/20 04:23 Dose: 1 mg Documented by: Metoprolol Tartrate (Lopressor) 5 mg IVPUSH Q4H PRN PRN Reason: Tachycardia Last Admin: 04/09/20 04:26 Dose: 5 mg Documented by: Mirtazapine (Remeron) 45 mg PO QPM PRN PRN Reason: Anxiety Miscellaneous Information (Remove Patch) 1 ea TRDERM DAILY [facility] Nicotine (Habitrol) 14 mg TRDERM DAILY [facility] Ondansetron HCl (Zofran) 4 mg IV Q6H PRN PRN Reason: Nausea/Vomiting Victoza (Liraglutide 1.8 Mg) Patient' s Own Med 0 each SUBCUT DAILY [facility] Last Admin: 04/09/20 11:37 Dose: Not Given Documented by: Polyethylene Glycol (Miralax) 17 gm PO DAILY PRN PRN Reason: Constipation Rosuvastatin Calcium (Crestor) 40 mg PO DAILY [facility] Senna/Docusate Sodium (Senna Plus) 1 tab PO BID PRN PRN Reason: Constipation Zinc Sulfate (Zincate) 220 mg PO DAILY [facility] Zolpidem Tartrate (Ambien) 5 mg PO BEDTIME PRN PRN Reason: Sleep Discontinued Medications Dexamethasone (Dexamethasone) 10 mg PO ONETIME ONE Stop: 04/09/20 13:04 Last Admin: 04/09/20 13:45 Dose: 10 mg Documented by: Magnesium Sulfate 4 gm/ Premix 50 mls @ 12.5 mls/hr IV ONETIME ONE Stop: 04/09/20 04:58 Last Admin: 04/09/20 01:13 Dose: 12.5 mls/hr Documented by: Levofloxacin/Dextrose 750 mg/ (Premix) 150 mls @ 100 mls/hr IV ONETIME STA Stop: 04/09/20 02:28 Last Admin: 04/09/20 01:31 Dose: 100 mls/hr Documented by: Levofloxacin/Dextrose 750 mg/ (Premix) 150 mls @ 100 mls/hr IV ONETIME ONE Stop: 04/09/20 02:59 Last Admin: 04/09/20 05:17 Dose: Not Given Documented by: Sodium Chloride (Normal Saline) 1,000 mls @ 999 mls/hr IV ONETIME ONE Stop: 04/09/20 07:48 Last Admin: 04/09/20 07:44 Dose: 999 mls/hr Documented by: Insulin Glargine (Lantus) 15 unit SUBCUT QPM [facility] Insulin Glargine (Lantus) 18 unit SUBCUT QPM [facility] Insulin Glargine (Lantus) 20 unit SUBCUT QPM [facility] Last Admin: 04/09/20 18:02 Dose: 20 units Documented by: Insulin Human Lispro (Humalog) 3 unit SUBCUT TIDAC [facility] Insulin Human Regular (Humulin R) 18 unit SUBCUT ONETIME STA Stop: 04/09/20 01:04 Last Admin: 04/09/20 01:22 Dose: 18 unit Documented by: Lorazepam (Ativan) Confirm Administered Dose 2 mg .ROUTE .STK-MED ONE Stop: 04/09/20 04:21 Last Admin: 04/09/20 04:25 Dose: Not Given Documented by: Ondansetron HCl (Zofran) Confirm Administered Dose 4 mg .ROUTE .STK-MED ONE Stop: 04/09/20 04:12 Last Admin: 04/09/20 04:20 Dose: 4 mg Documented by: Ondansetron HCl (Zofran) 4 mg IVPUSH ONETIME ONE Stop: 04/09/20 04:16 Last Admin: 04/09/20 09:12 Dose: Not Given Documented by: Rosuvastatin Calcium (Crestor) 40 mg PO DAILY [facility] Last Admin: 04/09/20 09:18 Dose: 40 mg Documented by: - Exam Quality Assessment: No: Supplemental Oxygen General: Alert, Oriented, Cooperative, No Acute Distress HEENT: Pupils Equal, Pupils Reactive, EOMI, Mucous Membr. Moist/[place] Neck: Supple Lungs: Clear to Auscultation, Normal Respiratory Effort Cardiovascular: Regular Rate, Regular Rhythm GI/Abdominal Exam: Normal Bowel Sounds, Soft, Non-Tender, No Organomegaly, No Distention, No Abnormal Bruit (Female) Exam: Deferred Back Exam: Normal Inspection, Full Range of Motion Extremities: Normal Inspection, Normal Range of Motion, Non-Tender, No Pedal Edema, Normal Capillary Refill Peripheral Pulses: 2+: Dorsalis Pedis (L), Dorsalis Pedis (R) Skin: Warm, Dry, Intact Neurological: No New Focal Deficit, Normal Gait Psy/Mental Status: Alert, Normal Affect, Normal Mood Sepsis Event Note - Evaluation Sepsis Screening Result: No Definite Risk - Focused Exam Vital Signs: Vital Signs Temp Pulse Resp BP Pulse Ox Pulse Ox 04/10/20 00:06 36.9 C 80 16 134/77 98 04/09/20 20:28 36.9 C 84 24 H 130/77 97 04/09/20 20:21 97 - Problem List Review Problem List Initiated/Reviewed/Updated: Yes - My Orders Last 24 Hours: My Active Orders 04/09/20 Breakfast [employer] [place] [employer] Diet [DIET] 04/09/20 07:14 Mirtazapine [Remeron] 45 mg PO QPM PRN 04/09/20 07:26 Isolation [COMM] Routine 04/09/20 07:27 Height and Weight [RC] 06 Oxygen Therapy [RC] PRN VTE/DVT Education [RC] DAILY Vital Signs [RC] Q4HR Consult to Case Management/Rhinologist [CONS] Routine Consult to Pharmaceutical Process Engineer [CONS] Routine OT Evaluation and Treatment [CONS] Routine PT Evaluation and Treatment [CONS] Routine Respiratory Care Assess and Treatment [CONS] Routine CULTURE SPUTUM + SMEAR [RM] Stat Acetaminophen/HYDROcodone [[place] 325-5 MG] 1 tab PO Q4H PRN Albuterol/Ipratropium [DuoNeb 3.0-0.5 MG/3 ML] 3 ml NEB Q4H PRN Docusate Sodium/Sennosides [Senna Plus] 1 tab PO BID PRN HYDROmorphone [Dilaudid] 0.5 mg IVPUSH Q2H PRN Ibuprofen [Motrin] 600 mg PO Q6H PRN Ondansetron [Zofran] 4 mg IV Q6H PRN Promethazine [Phenergan] 12.5 mg Sodium Chloride 0.9% [Normal Saline] 50 ml IV Q6H Zolpidem [Ambien] 5 mg PO BEDTIME PRN polyethylene glycoL 3350 [MiraLAX] 17 gm PO DAILY PRN 04/09/20 07:28 Intake and Output [RC] 04,16 04/09/20 07:29 Cardiac Monitoring [RC] CONTINUOUS Pulse Oximetry [RC] PRN 04/09/20 07:32 RT Aerosol Therapy [RC] ASDIRECTED 04/09/20 08:20 PROCALCITONIN [REF] Stat 04/09/20 09:00 Aspirin [Halfprin] 81 mg PO DAILY Enalapril [Vasotec] 10 mg PO DAILY Enoxaparin [Lovenox] 40 mg SUBCUT DAILY Patient's Own Medication [Ptom] 0 each SUBCUT DAILY 04/09/20 09:30 CULTURE MRSA [RM] Stat 04/09/20 Lunch Heart Healthy Diet [DIET] Insulin Lispro [HumaLOG] See Protocol SUBCUT TIDAC 04/09/20 14:08 Patient Status [ADT] Routine 04/09/20 14:28 Incentive Spirometry [RT Incentive Spirometry] [RC] ASDIRECTED 04/09/20 14:33 Dextromethorphan/guaiFENesin [Robitussin DM] 10 ml PO Q4H PRN 04/09/20 21:00 Levofloxacin/Dextrose 5%-Water [Levaquin in D5W 750 MG/150 ML] 750 mg Premix Bag 1 bag IV Q24H 04/10/20 09:00 Cholecalciferol (Vitamin D3) [Vitamin D3] 5,000 unit PO DAILY Insulin Glarg,Human.Rec.Analog [LantUS] 20 unit SUBCUT BID Nicotine [Habitrol] 14 mg TRDERM DAILY Zinc Sulfate [Zincate] 220 mg PO DAILY dexAMETHasone 10 mg PO DAILY 04/10/20 09:30 RESPIRATORY PANEL Stat 04/11/20 05:11 BMP [BASIC METABOLIC PANEL,BMP] [CHEM] AM CBC WITH AUTO DIFF [HEME] AM CRP [C-REACTIVE PROTEIN] [CHEM] AM MAGNESIUM [CHEM] AM 04/11/20 09:00 Remove Patch 1 ea TRDERM DAILY Rosuvastatin [Crestor] 40 mg PO DAILY 04/12/20 05:11 BMP [BASIC METABOLIC PANEL,BMP] [CHEM] AM CBC WITH AUTO DIFF [HEME] AM CRP [C-REACTIVE PROTEIN] [CHEM] AM MAGNESIUM [CHEM] AM 04/13/20 05:11 BMP [BASIC METABOLIC PANEL,BMP] [CHEM] AM CBC WITH AUTO DIFF [HEME] AM CRP [C-REACTIVE PROTEIN] [CHEM] AM MAGNESIUM [CHEM] AM 04/14/20 05:11 BMP [BASIC METABOLIC PANEL,BMP] [CHEM] AM CBC WITH AUTO DIFF [HEME] AM CRP [C-REACTIVE PROTEIN] [CHEM] AM MAGNESIUM [CHEM] AM 04/15/20 05:11 BMP [BASIC METABOLIC PANEL,BMP] [CHEM] AM CBC WITH AUTO DIFF [HEME] AM CRP [C-REACTIVE PROTEIN] [CHEM] AM MAGNESIUM [CHEM] AM 04/16/20 05:11 BMP [BASIC METABOLIC PANEL,BMP] [CHEM] AM CBC WITH AUTO DIFF [HEME] AM CRP [C-REACTIVE PROTEIN] [CHEM] AM MAGNESIUM [CHEM] AM - Plan Plan:: This is a 44 yo female with past medical hx/o HTN, HLD, DM2, Active Smoker and Obesity who was admitted overnight for worsening Covid-19 Infection associated with back and was diagnosed with Pyelonephritis. Assessment: Acute: Moderate Sepsis 2/2 Pyelonephritis and Covid-19 Infection, POA * She meets criteria on admission * Tachycardic, tachypneic, borderline low blood pressure and a temp as high as 39.3 C * WBC of 11.74-->now 9.90 and LA of 2.8-->now 1.1 * Procal of 3.99 and CRP of 26.6 * She is clinically stable * She is now on RA sating well * Continue IV Levaquin 750 mg daily Pyelonephritis * Positive for bilateral CVA tenderness: R>L * UA is positive for pyuria * Urine Cx shows GNR * Continue intravenous quinolone Viral Pneumonitis/Atypical Pneumonia, POA * Diagnosed at [place] on 03/26/2020 * She never received any treatment * No monoclonol antibodies given: Shona or Regeneron * She was told to quarantine * CXR report read as minimal density within the right middle love with additional mild atelectasis likely represent COVID-19 pneumonia * Dexamethasone 10 mg po daily fro 5 days, Zinc and Vit d supplement, intravenous abx with Levaquin daily * Day 14 fo viral infection, unlikely she would benefit with Veklury. Ferritin and LDH are wnl. She is now on RA sating adequately * Sputum Cx with gram stain, PRN decongestant/expectorant and IS as directed Bacteremia from Pyelonephritis, POA * 2/ bottles * Positive for GNR * On intravenous 750 mg Levaquin daily Normocytic Hypochromic Anemia with Hgb of 11 grams * No report or active bleeding or melena * This is likely due to acute illness * Hgb level is now 10.3 grams * We will monitor Mildly Elevated D-dimer of 0.76 and 0.90, POA * She is on RA sating adequately * Lovenox 40 mg sub daily fro DVT prophylaxis Increased AG Metabolic Acidosis, POA * Due to sepsis * AG of 20.6-->now 20.1 and LA of 2.8-->now 1.1 * CO2 of 19-->now 18 * Currently hydrating * We will monitor Hyperglycemia with DM2 * BS not well controlled * BS in the 200s-300s * She is on steroid as part of Covid treatment regimen * Accu-check TID with high intensity ISS and Lantus 20 units subQ BID * Continue to adjust insulin regimen Elevated Liver Enzymes, POA, likely improved * AST of 57 an ALT of 70 * We will hold statin for now and resume it in a couple of days Elevated proBNP of 306, POA * She is not volume overloaded * We will monitor Hypoalbuminemia with Albumin of 3.1, POA * Likely due to acute illness and poor nutritional intake Vit D Deficiency * Vit D level of 7.0 * Start Vit D supplement Class I Obese * BMI of 30.8 * Dietary consult for weight management Nicotine Dependence * Counseled on smoking cessation * Nicotine patch daily Generalized Weakness * Likely form acute illness * Also Vit D deficient * PT/OT consult Resolved: Hypoxia with O2 satin the 80s, resolved * She is an active smoker * Has active covid -19 infection * She was initially on 4L but slowly titrated down * Now on RA Febrile Illness, POA, resolved * Had a temp as high as 39.3C * Has anti-pyretic agents * Currently afebrile Leukocytosis with initial WBC of 11.74, resolved * Repeat WBC is 3.3-->now 9.90 * Treatment as above * We will monitor Lactic Acidosis, resolved * This from sepsis * LA of 2.8--> now 1.1 Sinus Tachycardia nd Tachypnea, resolved * Due to sepsis * She is on Telemetry Hypocalcemia with Non-corrected CA of 8.3 * Corrected CA is 9.0mg /dl * We will monitor Hypomagnesemia with initial Mg level of 1.4, resolved * Likely from poor nutritional intake * We will replete and monitor Chronic: HTN, HLD, DM2, Active Smoker and Obesity Plan: She looks clinically stable. Continue current treatment. Discontinue IV fluids for hydration. Continue Vit D, Zinc, and Oral steroid for COVID-19 treatment. AHA/ADA diet. Accu-check TID with ISS and Lantus 20 units subQ BID. RT to assess and treat. PT/OT for generalized weakness. Repeat blood culture in AM. LOS > 96hrs pending repeat blood after 48 hrs.
[2020-04-10] MEDS ORDERED: Insulin Glarg,Human.Rec.Analog 100 Unit/ML SUBCUT SCH (09:00)
[2020-04-10] MEDS: Enoxaparin 40 MG/0.4 ML Syringe SUBCUT SCH (09:22)
[2020-04-10] MEDS: Cholecalciferol (Vitamin D3) 5,000 UNIT Cap PO SCH (09:24)
[2020-04-10] MEDS: Aspirin 81 MG Tab.EC PO SCH (09:24)
[2020-04-10] MEDS: Enalapril 5 MG Tab PO SCH (09:24)
[2020-04-10] MEDS: Dexamethasone 4 MG Tab PO SCH (09:26)
[2020-04-10] MEDS: Zinc Sulfate 220 MG Cap PO SCH (09:26)
[2020-04-10] MEDS: Nicotine 14 MG/24 Hr Patch TRDERM SCH (09:30)
[2020-04-10 09:42] LABS: BORDETELLA PARAPERT IS1001 Not Detected (Not Detected)
[2020-04-10] MEDS: Acetaminophen 325 MG Tab PO PRN (12:11)
[2020-04-10] MEDS: VICTOZA SUBCUT SCH (14:06)
[2020-04-10] MEDS: Insulin Glarg,Human.Rec.Analog 100 Unit/ML SUBCUT SCH (21:23)
[2020-04-10] MEDS: Levofloxacin/Dextrose 5%-Water 750 MG in Premix Bag 1 BAG IV SCH (21:24)
[2020-04-11] MEDS: Insulin Glarg,Human.Rec.Analog 100 Unit/ML SUBCUT SCH ×2 (09:59→21:52)
[2020-04-11] MEDS: Enoxaparin 40 MG/0.4 ML Syringe SUBCUT SCH (10:00)
[2020-04-11] MEDS: Aspirin 81 MG Tab.EC PO SCH (10:02)
[2020-04-11] MEDS: Rosuvastatin 10 MG Tab PO SCH (10:02)
[2020-04-11] MEDS: Zinc Sulfate 220 MG Cap PO SCH (10:02)
[2020-04-11] MEDS: Enalapril 5 MG Tab PO SCH (10:02)
[2020-04-11] MEDS: Cholecalciferol (Vitamin D3) 5,000 UNIT Cap PO SCH (10:02)
[2020-04-11] MEDS: Dexamethasone 4 MG Tab PO SCH (10:03)
[2020-04-11] MEDS: Acetaminophen 325 MG Tab PO PRN (10:04)
[2020-04-11] MEDS: Nicotine 14 MG/24 Hr Patch TRDERM SCH (10:06)
[2020-04-11] MEDS: VICTOZA SUBCUT SCH (10:07)
--- NOTE | 2020-04-11 11:28 | PCM.PN ---
- General Info Date of Service: 04/11/20 Admission Dx/Problem (Free Text): Admission Diagnosis/Problem Admission Diagnosis/Problem Bandemia Subjective Update: Patient states that she is feeling well without any real complaints. Repeat blood cultures are due today. Functional Status: Reports: Pain Controlled - Review of Systems General: Reports: No Symptoms HEENT: Reports: No Symptoms Pulmonary: Reports: No Symptoms Cardiovascular: Reports: No Symptoms Gastrointestinal: Reports: No Symptoms Musculoskeletal: Reports: No Symptoms - Patient Data Vitals - Most Recent: Last Vital Signs Temp 99.0 F 04/11/20 11:04 Pulse 96 04/11/20 11:04 Resp 18 04/11/20 11:04 BP 124/63 04/11/20 11:04 Pulse Ox 97 04/11/20 11:04 Weight - Most Recent: 208 lb I&O - Last 24 Hours: Intake & Output 04/10/20 04/11/20 04/11/20 22:59 06:59 14:59 Intake Total 1810 950 Output Total 2500 1675 Balance -690 -725 Lab Results Last 24 Hours: Laboratory Results - last 24 hr 04/10/20 04/11/20 04/11/20 Range/Units 16:55 05:40 05:40 WBC 6.32 (3.98-10.04) K/mm3 RBC 4.65 (3.98-5.22) M/mm3 Hgb 11.2 (11.2-15.7) gm/dl Hct 36.6 (34.1-44.9) % MCV 78.7 L (79.4-94.8) fl MCH 24.1 L (25.6-32.2) pg MCHC 30.6 L (32.2-35.5) g/dl RDW Std Deviation 47.0 H (36.4-46.3) fL Plt Count 248 (182-369) K/mm3 MPV 9.6 (9.4-12.3) fl Neut % (Auto) 82.7 H (34.0-71.1) % Lymph % (Auto) 6.6 L (19.3-51.7) % Pepin % (Auto) 10.0 (4.7-12.5) % Eos % (Auto) 0.2 L (0.7-5.8) Baso % (Auto) 0.2 (0.1-1.2) % Neut # (Auto) 5.23 (1.56-6.13) K/mm3 Lymph # (Auto) 0.42 L (1.18-3.74) K/mm3 Pepin # (Auto) 0.63 H (0.24-0.36) K/mm3 Eos # (Auto) 0.01 L (0.04-0.36) K/mm3 Baso # (Auto) 0.01 (0.01-0.08) K/mm3 Manual Slide Review Abnormal smear Sodium 138 (136-145) mEq/L Potassium 4.0 (3.5-5.1) mEq/L Chloride 102 (98-107) mEq/L Carbon Dioxide 23 (21-32) mEq/L Anion Gap 17.0 H (5-15) BUN 16 (7-18) mg/dL Creatinine 0.8 (0.55-1.02) mg/dL Est Cr Clr Drug Dosing 95.74 mL/min Estimated GFR (MDRD) > 60 (>60) mL/min BUN/Creatinine Ratio 20.0 H (14-18) Glucose 219 H (74-106) mg/dL POC Glucose 334 H (70-105) mg/dL Calcium 9.0 (8.5-10.1) mg/dL Magnesium 1.9 (1.8-2.4) mg/dl C-Reactive Protein 13.8 H* (<1.0) mg/dL 04/11/20 Range/Units 06:25 WBC (3.98-10.04) K/mm3 RBC (3.98-5.22) M/mm3 Hgb (11.2-15.7) gm/dl Hct (34.1-44.9) % MCV (79.4-94.8) fl MCH (25.6-32.2) pg MCHC (32.2-35.5) g/dl RDW Std Deviation (36.4-46.3) fL Plt Count (182-369) K/mm3 MPV (9.4-12.3) fl Neut % (Auto) (34.0-71.1) % Lymph % (Auto) (19.3-51.7) % Pepin % (Auto) (4.7-12.5) % Eos % (Auto) (0.7-5.8) Baso % (Auto) (0.1-1.2) % Neut # (Auto) (1.56-6.13) K/mm3 Lymph # (Auto) (1.18-3.74) K/mm3 Pepin # (Auto) (0.24-0.36) K/mm3 Eos # (Auto) (0.04-0.36) K/mm3 Baso # (Auto) (0.01-0.08) K/mm3 Manual Slide Review Sodium (136-145) mEq/L Potassium (3.5-5.1) mEq/L Chloride (98-107) mEq/L Carbon Dioxide (21-32) mEq/L Anion Gap (5-15) BUN (7-18) mg/dL Creatinine (0.55-1.02) mg/dL Est Cr Clr Drug Dosing mL/min Estimated GFR (MDRD) (>60) mL/min BUN/Creatinine Ratio (14-18) Glucose (74-106) mg/dL POC Glucose 228 H (70-105) mg/dL Calcium (8.5-10.1) mg/dL Magnesium (1.8-2.4) mg/dl C-Reactive Protein (<1.0) mg/dL Kenny Results Last 24 Hours: Microbiology 04/09/20 01:18 Aerobic Blood Culture - Final Blood - Venous - Lab Draw Escherichia Coli Anaerobic Blood Culture - Preliminary Escherichia Coli 04/09/20 01:05 Aerobic Blood Culture - Final Blood - Venous Escherichia Coli Anaerobic Blood Culture - Preliminary Escherichia Coli 04/09/20 01:47 Urine Culture - Final Urine, Clean Catch Escherichia Coli 04/09/20 09:30 MRSA Culture - Final Nares, Unspecified NO MRSA ISOLATED Med Orders - Current: Current Medications Acetaminophen (Tylenol) 650 mg PO Q4H PRN PRN Reason: Pain Last Admin: 04/11/20 10:04 Dose: 650 mg Documented by: Hydrocodone Bitart/Acetaminophen (Thayne 325-5 Mg) 1 tab PO Q4H PRN PRN Reason: Pain (moderate 4-6) Albuterol/Ipratropium (Duoneb 3.0-0.5 Mg/3 Ml) 3 ml NEB Q4H PRN PRN Reason: Shortness Of Breath/wheezing Aspirin (Halfprin) 81 mg PO DAILY [facility] Last Admin: 04/11/20 10:02 Dose: 81 mg Documented by: Cholecalciferol (Vitamin D3) 5,000 unit PO DAILY [facility] Last Admin: 04/11/20 10:02 Dose: 5,000 unit Documented by: Dexamethasone (Dexamethasone) 10 mg PO DAILY [facility] Stop: 04/14/20 09:01 Last Admin: 04/11/20 10:03 Dose: 10 mg Documented by: Enalapril Maleate (Vasotec) 10 mg PO DAILY [facility] Last Admin: 04/11/20 10:02 Dose: 10 mg Documented by: Enoxaparin Sodium (Lovenox) 40 mg SUBCUT DAILY [facility] Last Admin: 04/11/20 10:00 Dose: 40 mg Documented by: Guaifenesin/Phenylephrine HCl (Robitussin Dm) 10 ml PO Q4H PRN PRN Reason: Cough Hydralazine HCl (Apresoline) 20 mg IVPUSH Q4H PRN PRN Reason: Hypertension Last Admin: 04/09/20 04:30 Dose: 20 mg Documented by: Hydromorphone HCl (Dilaudid) 0.5 mg IVPUSH Q2H PRN PRN Reason: Pain (severe 7-10) Levofloxacin/Dextrose 750 mg/ (Premix) 150 mls @ 100 mls/hr IV Q24H [facility] Last Admin: 04/10/20 21:24 Dose: 100 mls/hr Documented by: Promethazine HCl 12.5 mg/ (Sodium Chloride) 50.5 mls @ 100 mls/hr IV Q6H PRN PRN Reason: Nausea/Vomiting Ibuprofen (Motrin) 600 mg PO Q6H PRN PRN Reason: Pain (moderate 4-6) Insulin Glargine (Lantus) 23 unit SUBCUT BID [facility] Last Admin: 04/11/20 09:59 Dose: 23 units Documented by: Insulin Human Lispro (Humalog) 0 unit SUBCUT TIDAC [facility]; Protocol Last Admin: 04/11/20 09:59 Dose: Not Given Documented by: Lorazepam (Ativan) 1 mg IVPUSH Q4H PRN PRN Reason: Anxiety Last Admin: 04/09/20 04:23 Dose: 1 mg Documented by: Metoprolol Tartrate (Lopressor) 5 mg IVPUSH Q4H PRN PRN Reason: Tachycardia Last Admin: 04/09/20 04:26 Dose: 5 mg Documented by: Mirtazapine (Remeron) 45 mg PO QPM PRN PRN Reason: Anxiety Miscellaneous Information (Remove Patch) 1 ea TRDERM DAILY [facility] Last Admin: 04/11/20 10:06 Dose: Not Given Documented by: Nicotine (Habitrol) 14 mg TRDERM DAILY [facility] Last Admin: 04/11/20 10:06 Dose: Not Given Documented by: Ondansetron HCl (Zofran) 4 mg IV Q6H PRN PRN Reason: Nausea/Vomiting Victoza (Liraglutide 1.8 Mg) Patient' s Own Med 0 each SUBCUT DAILY [facility] Last Admin: 04/11/20 10:07 Dose: Not Given Documented by: Polyethylene Glycol (Miralax) 17 gm PO DAILY PRN PRN Reason: Constipation Rosuvastatin Calcium (Crestor) 40 mg PO DAILY [facility] Last Admin: 04/11/20 10:02 Dose: 40 mg Documented by: Senna/Docusate Sodium (Senna Plus) 1 tab PO BID PRN PRN Reason: Constipation Zinc Sulfate (Zincate) 220 mg PO DAILY [facility] Last Admin: 04/11/20 10:02 Dose: 220 mg Documented by: Zolpidem Tartrate (Ambien) 5 mg PO BEDTIME PRN PRN Reason: Sleep Discontinued Medications Dexamethasone (Dexamethasone) 10 mg PO ONETIME ONE Stop: 04/09/20 13:04 Last Admin: 04/09/20 13:45 Dose: 10 mg Documented by: Sodium Chloride (Normal Saline) 1,000 mls @ 150 mls/hr IV ASDIRECTED [facility] Last Admin: 04/10/20 03:27 Dose: 150 mls/hr Documented by: Magnesium Sulfate 4 gm/ Premix 50 mls @ 12.5 mls/hr IV ONETIME ONE Stop: 04/09/20 04:58 Last Admin: 04/09/20 01:13 Dose: 12.5 mls/hr Documented by: Levofloxacin/Dextrose 750 mg/ (Premix) 150 mls @ 100 mls/hr IV ONETIME STA Stop: 04/09/20 02:28 Last Admin: 04/09/20 01:31 Dose: 100 mls/hr Documented by: Levofloxacin/Dextrose 750 mg/ (Premix) 150 mls @ 100 mls/hr IV ONETIME ONE Stop: 04/09/20 02:59 Last Admin: 04/09/20 05:17 Dose: Not Given Documented by: Sodium Chloride (Normal Saline) 1,000 mls @ 999 mls/hr IV ONETIME ONE Stop: 04/09/20 07:48 Last Admin: 04/09/20 07:44 Dose: 999 mls/hr Documented by: Insulin Glargine (Lantus) 15 unit SUBCUT QPM [facility] Insulin Glargine (Lantus) 18 unit SUBCUT QPM [facility] Insulin Glargine (Lantus) 20 unit SUBCUT QPM [facility] Last Admin: 04/09/20 18:02 Dose: 20 units Documented by: Insulin Glargine (Lantus) 20 unit SUBCUT BID [facility] Last Admin: 04/10/20 09:20 Dose: 20 units Documented by: Insulin Human Lispro (Humalog) 3 unit SUBCUT TIDAC [facility] Insulin Human Lispro (Humalog) 0 unit SUBCUT ONETIME ONE; Protocol Stop: 04/11/20 09:31 Last Admin: 04/11/20 09:58 Dose: 6 units Documented by: Insulin Human Regular (Humulin R) 18 unit SUBCUT ONETIME STA Stop: 04/09/20 01:04 Last Admin: 04/09/20 01:22 Dose: 18 unit Documented by: Lorazepam (Ativan) Confirm Administered Dose 2 mg .ROUTE .STK-MED ONE Stop: 04/09/20 04:21 Last Admin: 04/09/20 04:25 Dose: Not Given Documented by: Ondansetron HCl (Zofran) Confirm Administered Dose 4 mg .ROUTE .STK-MED ONE Stop: 04/09/20 04:12 Last Admin: 04/09/20 04:20 Dose: 4 mg Documented by: Ondansetron HCl (Zofran) 4 mg IVPUSH ONETIME ONE Stop: 04/09/20 04:16 Last Admin: 04/09/20 09:12 Dose: Not Given Documented by: Rosuvastatin Calcium (Crestor) 40 mg PO DAILY [facility] Last Admin: 04/09/20 09:18 Dose: 40 mg Documented by: - Exam Quality Assessment: No: Supplemental Oxygen General: Alert, Oriented HEENT: Pupils Equal, Mucous Membr. Moist/[place] Neck: Supple Lungs: Clear to Auscultation, Normal Respiratory Effort Cardiovascular: Regular Rate, Regular Rhythm GI/Abdominal Exam: Normal Bowel Sounds, Soft, Non-Tender, No Distention Extremities: Normal Inspection, Normal Range of Motion, Non-Tender, No Pedal Edema, Normal Capillary Refill Skin: Warm, Dry, Intact Psy/Mental Status: Alert, Normal Affect, Normal Mood Sepsis Event Note - Evaluation Sepsis Screening Result: No Definite Risk - Focused Exam Vital Signs: Vital Signs Temp Pulse Resp BP Pulse Ox 04/11/20 11:04 99.0 F 96 18 124/63 97 04/11/20 10:02 156/77 H 04/11/20 07:56 99.0 F 75 18 156/77 H 98 04/11/20 05:43 98.4 F 74 24 H 154/81 H 100 04/11/20 00:43 98.4 F 65 20 149/98 H 99 - Problem List & Annotations (1) COVID-19 SNOMED Code(s): 059536371 Code(s): U07.1 - COVID-19 Status: Acute Current Visit: Yes (2) Hyperglycemia due to type 2 diabetes mellitus SNOMED Code(s): 828799616287045, 611439275379711 Code(s): E11.65 - TYPE 2 DIABETES MELLITUS WITH HYPERGLYCEMIA Status: Acute Current Visit: Yes (3) UTI (urinary tract infection) SNOMED Code(s): 29823191 Code(s): N39.0 - URINARY TRACT INFECTION, SITE NOT SPECIFIED Status: Acute Current Visit: Yes - Problem List Review Problem List Initiated/Reviewed/Updated: Yes - Plan Plan:: This is a 44 yo female with past medical hx/o HTN, HLD, DM2, Active Smoker and Obesity who was admitted overnight for worsening Covid-19 Infection associated with back and was diagnosed with Pyelonephritis. Assessment: Acute: Moderate Sepsis 2/2 Pyelonephritis and Covid-19 Infection, POA * She meets criteria on admission * Tachycardic, tachypneic, borderline low blood pressure and a temp as high as 39.3 C * WBC of 11.74-->now 9.90 and LA of 2.8-->now 1.1 * Procal of 3.99 and CRP of 26.6 * She is clinically stable * She is now on RA sating well * Continue IV Levaquin 750 mg daily Pyelonephritis * Positive for bilateral CVA tenderness: R>L * UA is positive for pyuria * Urine Cx shows GNR * Continue intravenous quinolone Viral Pneumonitis/Atypical Pneumonia, POA * Diagnosed at [facility] on 03/26/2020 * She never received any treatment * No monoclonol antibodies given: Shona or Regeneron * She was told to quarantine * CXR report read as minimal density within the right middle love with additional mild atelectasis likely represent COVID-19 pneumonia * Dexamethasone 10 mg po daily fro 5 days, Zinc and Vit d supplement, intravenous abx with Levaquin daily * Day 14 fo viral infection, unlikely she would benefit with Veklury. Ferritin and LDH are wnl. She is now on RA sating adequately * Sputum Cx with gram stain, PRN decongestant/expectorant and IS as directed Bacteremia from Pyelonephritis, POA * 04/28 bottles * Positive for GNR * On intravenous 750 mg Levaquin daily Normocytic Hypochromic Anemia with Hgb of 11 grams * No report or active bleeding or melena * This is likely due to acute illness * Hgb level is now 10.3 grams * We will monitor Mildly Elevated D-dimer of 0.76 and 0.90, POA * She is on RA sating adequately * Lovenox 40 mg sub daily fro DVT prophylaxis Increased AG Metabolic Acidosis, POA * Due to sepsis * AG of 20.6-->now 20.1 and LA of 2.8-->now 1.1 * CO2 of 19-->now 18 * Currently hydrating * We will monitor Hyperglycemia with DM2 * BS not well controlled * BS in the 200s-300s * She is on steroid as part of Covid treatment regimen * Accu-check TID with high intensity ISS and Lantus 20 units subQ BID * Continue to adjust insulin regimen Elevated Liver Enzymes, POA, likely improved * AST of 57 an ALT of 70 * We will hold statin for now and resume it in a couple of days Elevated proBNP of 306, POA * She is not volume overloaded * We will monitor Hypoalbuminemia with Albumin of 3.1, POA * Likely due to acute illness and poor nutritional intake Vit D Deficiency * Vit D level of 7.0 * Start Vit D supplement Class I Obese * BMI of 30.8 * Dietary consult for weight management Nicotine Dependence * Counseled on smoking cessation * Nicotine patch daily Generalized Weakness * Likely form acute illness * Also Vit D deficient * PT/OT consult Resolved: Hypoxia with O2 satin the 80s, resolved * She is an active smoker * Has active covid -19 infection * She was initially on 4L but slowly titrated down * Now on RA Febrile Illness, POA, resolved * Had a temp as high as 39.3C * Has anti-pyretic agents * Currently afebrile Leukocytosis with initial WBC of 11.74, resolved * Repeat WBC is 3.3-->now 9.90 * Treatment as above * We will monitor Lactic Acidosis, resolved * This from sepsis * LA of 2.8--> now 1.1 Sinus Tachycardia nd Tachypnea, resolved * Due to sepsis * She is on Telemetry Hypocalcemia with Non-corrected CA of 8.3 * Corrected CA is 9.0mg /dl * We will monitor Hypomagnesemia with initial Mg level of 1.4, resolved * Likely from poor nutritional intake * We will replete and monitor Chronic: HTN, HLD, DM2, Active Smoker and Obesity Plan: She looks clinically stable. Continue current treatment. Discontinue IV fluids for hydration. Continue Vit D, Zinc, and Oral steroid for COVID-19 treatment. AHA/ADA diet. Accu-check TID with ISS and Lantus 20 units subQ BID. RT to assess and treat. PT/OT for generalized weakness. Repeat blood culture in AM. LOS > 96hrs pending repeat blood after 48 hrs. 04/11/2020 Patient is doing much better. She has only of mild backache with nothing significant. No fevers. White count is down to 6.3 and CRP of 13.8. Small anion gap of 17 but not significant. Continues on Levaquin and blood cultures have shown E. coli that is pansensitive. She does not require supplemental O2 and is independent in her room. Plan * Switch Levaquin to Keflex * Await results of second blood cultures before discharge * Complete a total of 7 to 10 days of antibiotics * Monitor CBC, electrolytes, renal function, C-reactive protein
[2020-04-11] MEDS: Cephalexin 500 MG Cap PO SCH ×2 (17:45→23:31)
[2020-04-12] MEDS: Cephalexin 500 MG Cap PO SCH ×4 (05:06→23:54)
[2020-04-12] MEDS ORDERED: Potassium Chloride 20 MEQ Tab.ER PO ONE (08:18)
[2020-04-12] MEDS ORDERED: Magnesium Sulfate/Water 2 GM in Premix Bag 1 BAG IV ONE (08:18)
--- NOTE | 2020-04-12 08:34 | PCM.PN ---
- General Info Date of Service: 04/12/20 Admission Dx/Problem (Free Text): Admission Diagnosis/Problem Admission Diagnosis/Problem Bandemia Subjective Update: She has no complaints. She is generally feeling well. She does complain that the bed is uncomfortable. Functional Status: Reports: Pain Controlled - Review of Systems General: Reports: No Symptoms HEENT: Reports: No Symptoms Pulmonary: Reports: No Symptoms Cardiovascular: Reports: No Symptoms Gastrointestinal: Reports: No Symptoms Musculoskeletal: Reports: No Symptoms Neurological: Reports: No Symptoms Psychiatric: Reports: No Symptoms - Patient Data Vitals - Most Recent: Last Vital Signs Temp 100.2 F 04/12/20 07:51 Pulse 77 04/12/20 07:51 Resp 18 04/12/20 07:51 BP 170/80 H 04/12/20 07:51 Pulse Ox 100 04/12/20 07:51 Weight - Most Recent: 208 lb 6.4 oz I&O - Last 24 Hours: Intake & Output 04/11/20 04/12/20 04/12/20 22:59 06:59 14:59 Intake Total 850 800 Balance 850 800 Lab Results Last 24 Hours: Laboratory Results - last 24 hr 04/11/20 04/11/20 04/11/20 Range/Units 11:03 16:59 21:38 WBC (3.98-10.04) K/mm3 RBC (3.98-5.22) M/mm3 Hgb (11.2-15.7) gm/dl Hct (34.1-44.9) % MCV (79.4-94.8) fl MCH (25.6-32.2) pg MCHC (32.2-35.5) g/dl RDW Std Deviation (36.4-46.3) fL Plt Count (182-369) K/mm3 MPV (9.4-12.3) fl Neut % (Auto) (34.0-71.1) % Lymph % (Auto) (19.3-51.7) % Preston % (Auto) (4.7-12.5) % Eos % (Auto) (0.7-5.8) Baso % (Auto) (0.1-1.2) % Neut # (Auto) (1.56-6.13) K/mm3 Lymph # (Auto) (1.18-3.74) K/mm3 Preston # (Auto) (0.24-0.36) K/mm3 Eos # (Auto) (0.04-0.36) K/mm3 Baso # (Auto) (0.01-0.08) K/mm3 Manual Slide Review Sodium (136-145) mEq/L Potassium (3.5-5.1) mEq/L Chloride (98-107) mEq/L Carbon Dioxide (21-32) mEq/L Anion Gap (5-15) BUN (7-18) mg/dL Creatinine (0.55-1.02) mg/dL Est Cr Clr Drug Dosing mL/min Estimated GFR (MDRD) (>60) mL/min BUN/Creatinine Ratio (14-18) Glucose (74-106) mg/dL POC Glucose 183 H 328 H 300 H (70-105) mg/dL Calcium (8.5-10.1) mg/dL Magnesium (1.8-2.4) mg/dl C-Reactive Protein (<1.0) mg/dL 04/12/20 04/12/20 Range/Units 06:25 06:25 WBC 3.89 L (3.98-10.04) K/mm3 RBC 4.86 (3.98-5.22) M/mm3 Hgb 11.7 (11.2-15.7) gm/dl Hct 37.5 (34.1-44.9) % MCV 77.2 L (79.4-94.8) fl MCH 24.1 L (25.6-32.2) pg MCHC 31.2 L (32.2-35.5) g/dl RDW Std Deviation 46.2 (36.4-46.3) fL Plt Count 223 (182-369) K/mm3 MPV 9.4 (9.4-12.3) fl Neut % (Auto) 65.3 (34.0-71.1) % Lymph % (Auto) 14.7 L (19.3-51.7) % Preston % (Auto) 19.5 H (4.7-12.5) % Eos % (Auto) 0 L (0.7-5.8) Baso % (Auto) 0.0 L (0.1-1.2) % Neut # (Auto) 2.54 (1.56-6.13) K/mm3 Lymph # (Auto) 0.57 L (1.18-3.74) K/mm3 Preston # (Auto) 0.76 H (0.24-0.36) K/mm3 Eos # (Auto) 0.00 L (0.04-0.36) K/mm3 Baso # (Auto) 0.00 L (0.01-0.08) K/mm3 Manual Slide Review Abnormal smear Sodium 138 (136-145) mEq/L Potassium 3.5 (3.5-5.1) mEq/L Chloride 102 (98-107) mEq/L Carbon Dioxide 23 (21-32) mEq/L Anion Gap 16.5 H (5-15) BUN 19 H (7-18) mg/dL Creatinine 0.9 (0.55-1.02) mg/dL Est Cr Clr Drug Dosing 85.10 mL/min Estimated GFR (MDRD) > 60 (>60) mL/min BUN/Creatinine Ratio 21.1 H (14-18) Glucose 167 H (74-106) mg/dL POC Glucose (70-105) mg/dL Calcium 8.7 (8.5-10.1) mg/dL Magnesium 1.7 L (1.8-2.4) mg/dl C-Reactive Protein 7.6 H* (<1.0) mg/dL Kenny Results Last 24 Hours: Microbiology 04/09/20 01:18 Aerobic Blood Culture - Final Blood - Venous - Lab Draw Escherichia Coli Anaerobic Blood Culture - Preliminary Escherichia Coli 04/09/20 01:05 Aerobic Blood Culture - Final Blood - Venous Escherichia Coli Anaerobic Blood Culture - Preliminary Escherichia Coli Med Orders - Current: Current Medications Acetaminophen (Tylenol) 650 mg PO Q4H PRN PRN Reason: Pain Last Admin: 04/11/20 10:04 Dose: 650 mg Documented by: Hydrocodone Bitart/Acetaminophen ([place] 325-5 Mg) 1 tab PO Q4H PRN PRN Reason: Pain (moderate 4-6) Albuterol/Ipratropium (Duoneb 3.0-0.5 Mg/3 Ml) 3 ml NEB Q4H PRN PRN Reason: Shortness Of Breath/wheezing Aspirin (Halfprin) 81 mg PO DAILY EMEKA Last Admin: 04/11/20 10:02 Dose: 81 mg Documented by: Cephalexin (Keflex) 500 mg PO Q6HR COUNT INCLUDES THE [facility] Last Admin: 04/12/20 05:06 Dose: 500 mg Documented by: Cholecalciferol (Vitamin D3) 5,000 unit PO DAILY COUNT INCLUDES THE [facility] Last Admin: 04/11/20 10:02 Dose: 5,000 unit Documented by: Dexamethasone (Dexamethasone) 10 mg PO DAILY COUNT INCLUDES THE [facility] Stop: 04/14/20 09:01 Last Admin: 04/11/20 10:03 Dose: 10 mg Documented by: Enalapril Maleate (Vasotec) 10 mg PO DAILY COUNT INCLUDES THE [facility] Last Admin: 04/11/20 10:02 Dose: 10 mg Documented by: Enoxaparin Sodium (Lovenox) 40 mg SUBCUT DAILY COUNT INCLUDES THE [facility] Last Admin: 04/11/20 10:00 Dose: 40 mg Documented by: Guaifenesin/Phenylephrine HCl (Robitussin Dm) 10 ml PO Q4H PRN PRN Reason: Cough Hydralazine HCl (Apresoline) 20 mg IVPUSH Q4H PRN PRN Reason: Hypertension Last Admin: 04/09/20 04:30 Dose: 20 mg Documented by: Hydromorphone HCl (Dilaudid) 0.5 mg IVPUSH Q2H PRN PRN Reason: Pain (severe 7-10) Promethazine HCl 12.5 mg/ (Sodium Chloride) 50.5 mls @ 100 mls/hr IV Q6H PRN PRN Reason: Nausea/Vomiting Magnesium Sulfate 2 gm/ Premix 50 mls @ 25 mls/hr IV ONETIME ONE Stop: 04/12/20 10:17 Ibuprofen (Motrin) 600 mg PO Q6H PRN PRN Reason: Pain (moderate 4-6) Insulin Glargine (Lantus) 23 unit SUBCUT BID COUNT INCLUDES THE [facility] Last Admin: 04/11/20 21:52 Dose: 23 units Documented by: Insulin Human Lispro (Humalog) 0 unit SUBCUT TIDAC COUNT INCLUDES THE [facility]; Protocol Last Admin: 04/11/20 17:45 Dose: 12 units Documented by: Lorazepam (Ativan) 1 mg IVPUSH Q4H PRN PRN Reason: Anxiety Last Admin: 04/09/20 04:23 Dose: 1 mg Documented by: Metoprolol Tartrate (Lopressor) 5 mg IVPUSH Q4H PRN PRN Reason: Tachycardia Last Admin: 04/09/20 04:26 Dose: 5 mg Documented by: Mirtazapine (Remeron) 45 mg PO QPM PRN PRN Reason: Anxiety Miscellaneous Information (Remove Patch) 1 ea TRDERM DAILY COUNT INCLUDES THE [facility] Last Admin: 04/11/20 10:06 Dose: Not Given Documented by: Nicotine (Habitrol) 14 mg TRDERM DAILY COUNT INCLUDES THE [facility] Last Admin: 04/11/20 10:06 Dose: Not Given Documented by: Ondansetron HCl (Zofran) 4 mg IV Q6H PRN PRN Reason: Nausea/Vomiting Last Admin: 04/11/20 12:21 Dose: 4 mg Documented by: Victoza (Liraglutide 1.8 Mg) Patient' s Own Med 0 each SUBCUT DAILY COUNT INCLUDES THE [facility] Last Admin: 04/11/20 10:07 Dose: Not Given Documented by: Polyethylene Glycol (Miralax) 17 gm PO DAILY PRN PRN Reason: Constipation Rosuvastatin Calcium (Crestor) 40 mg PO DAILY COUNT INCLUDES THE [facility] Last Admin: 04/11/20 10:02 Dose: 40 mg Documented by: Senna/Docusate Sodium (Senna Plus) 1 tab PO BID PRN PRN Reason: Constipation Zinc Sulfate (Zincate) 220 mg PO DAILY COUNT INCLUDES THE [facility] Last Admin: 04/11/20 10:02 Dose: 220 mg Documented by: Zolpidem Tartrate (Ambien) 5 mg PO BEDTIME PRN PRN Reason: Sleep Discontinued Medications Dexamethasone (Dexamethasone) 10 mg PO ONETIME ONE Stop: 04/09/20 13:04 Last Admin: 04/09/20 13:45 Dose: 10 mg Documented by: Sodium Chloride (Normal Saline) 1,000 mls @ 150 mls/hr IV ASDIRECTED COUNT INCLUDES THE [facility] Last Admin: 04/10/20 03:27 Dose: 150 mls/hr Documented by: Magnesium Sulfate 4 gm/ Premix 50 mls @ 12.5 mls/hr IV ONETIME ONE Stop: 04/09/20 04:58 Last Admin: 04/09/20 01:13 Dose: 12.5 mls/hr Documented by: Levofloxacin/Dextrose 750 mg/ (Premix) 150 mls @ 100 mls/hr IV ONETIME STA Stop: 04/09/20 02:28 Last Admin: 04/09/20 01:31 Dose: 100 mls/hr Documented by: Levofloxacin/Dextrose 750 mg/ (Premix) 150 mls @ 100 mls/hr IV ONETIME ONE Stop: 04/09/20 02:59 Last Admin: 04/09/20 05:17 Dose: Not Given Documented by: Levofloxacin/Dextrose 750 mg/ (Premix) 150 mls @ 100 mls/hr IV Q24H COUNT INCLUDES THE [facility] Last Admin: 04/10/20 21:24 Dose: 100 mls/hr Documented by: Sodium Chloride (Normal Saline) 1,000 mls @ 999 mls/hr IV ONETIME ONE Stop: 04/09/20 07:48 Last Admin: 04/09/20 07:44 Dose: 999 mls/hr Documented by: Insulin Glargine (Lantus) 15 unit SUBCUT QPM EMEKA Insulin Glargine (Lantus) 18 unit SUBCUT QPM EMEKA Insulin Glargine (Lantus) 20 unit SUBCUT QPM COUNT INCLUDES THE [facility] Last Admin: 04/09/20 18:02 Dose: 20 units Documented by: Insulin Glargine (Lantus) 20 unit SUBCUT BID COUNT INCLUDES THE [facility] Last Admin: 04/10/20 09:20 Dose: 20 units Documented by: Insulin Human Lispro (Humalog) 3 unit SUBCUT TIDAC COUNT INCLUDES THE [facility] Insulin Human Lispro (Humalog) 0 unit SUBCUT ONETIME ONE; Protocol Stop: 04/11/20 09:31 Last Admin: 04/11/20 09:58 Dose: 6 units Documented by: Insulin Human Regular (Humulin R) 18 unit SUBCUT ONETIME STA Stop: 04/09/20 01:04 Last Admin: 04/09/20 01:22 Dose: 18 unit Documented by: Lorazepam (Ativan) Confirm Administered Dose 2 mg .ROUTE .STK-MED ONE Stop: 04/09/20 04:21 Last Admin: 04/09/20 04:25 Dose: Not Given Documented by: Ondansetron HCl (Zofran) Confirm Administered Dose 4 mg .ROUTE .STK-MED ONE Stop: 04/09/20 04:12 Last Admin: 04/09/20 04:20 Dose: 4 mg Documented by: Ondansetron HCl (Zofran) 4 mg IVPUSH ONETIME ONE Stop: 04/09/20 04:16 Last Admin: 04/09/20 09:12 Dose: Not Given Documented by: Potassium Chloride (Klor-Con M20) 40 meq PO ONETIME ONE Stop: 04/12/20 08:19 Rosuvastatin Calcium (Crestor) 40 mg PO DAILY EMEKA Last Admin: 04/09/20 09:18 Dose: 40 mg Documented by: - Exam Quality Assessment: No: Supplemental Oxygen General: Alert, Oriented HEENT: Pupils Equal, Mucous Membr. Moist/[place] Neck: Supple Lungs: Clear to Auscultation, Normal Respiratory Effort Cardiovascular: Regular Rate, Regular Rhythm GI/Abdominal Exam: Normal Bowel Sounds, Soft, Non-Tender, No Organomegaly, No Distention, No Abnormal Bruit, No Mass Extremities: Normal Inspection, Normal Range of Motion, Non-Tender, No Pedal Edema, Normal Capillary Refill Skin: Warm, Dry, Intact Psy/Mental Status: Alert, Normal Affect, Normal Mood Sepsis Event Note - Evaluation Sepsis Screening Result: No Definite Risk - Focused Exam Vital Signs: Vital Signs Temp Pulse Resp BP Pulse Ox Pulse Ox 04/12/20 07:51 100.2 F 77 18 170/80 H 100 04/12/20 06:55 97 04/12/20 05:00 98 04/12/20 04:30 99.1 F 75 18 118/74 97 04/11/20 23:28 98.4 F 66 16 122/78 100 - Problem List & Annotations (1) COVID-19 SNOMED Code(s): 149628982 Code(s): U07.1 - COVID-19 Status: Acute Current Visit: Yes (2) Hyperglycemia due to type 2 diabetes mellitus SNOMED Code(s): 823640714222508, 086325084031624 Code(s): E11.65 - TYPE 2 DIABETES MELLITUS WITH HYPERGLYCEMIA Status: Acute Current Visit: Yes (3) UTI (urinary tract infection) SNOMED Code(s): 11054695 Code(s): N39.0 - URINARY TRACT INFECTION, SITE NOT SPECIFIED Status: Acute Current Visit: Yes - Problem List Review Problem List Initiated/Reviewed/Updated: Yes - My Orders Last 24 Hours: My Active Orders 04/11/20 18:00 cephALEXin [Keflex] 500 mg PO Q6HR 04/12/20 08:18 Magnesium Sulfate/Water [Magnesium Sulfate in Water Premix] 2 gm Premix Bag 1 bag IV ONETIME - Plan Plan:: This is a 44 yo female with past medical hx/o HTN, HLD, DM2, Active Smoker and Obesity who was admitted overnight for worsening Covid-19 Infection associated with back and was diagnosed with Pyelonephritis. Assessment: Acute: Moderate Sepsis 2/2 Pyelonephritis and Covid-19 Infection, POA * She meets criteria on admission * Tachycardic, tachypneic, borderline low blood pressure and a temp as high as 39.3 C * WBC of 11.74-->now 9.90 and LA of 2.8-->now 1.1 * Procal of 3.99 and CRP of 26.6 * She is clinically stable * She is now on RA sating well * Continue IV Levaquin 750 mg daily Pyelonephritis * Positive for bilateral CVA tenderness: R>L * UA is positive for pyuria * Urine Cx shows GNR * Continue intravenous quinolone Viral Pneumonitis/Atypical Pneumonia, POA * Diagnosed at [place] on 03/26/2020 * She never received any treatment * No monoclonol antibodies given: Shona or Regeneron * She was told to quarantine * CXR report read as minimal density within the right middle love with additional mild atelectasis likely represent COVID-19 pneumonia * Dexamethasone 10 mg po daily fro 5 days, Zinc and Vit d supplement, intravenous abx with Levaquin daily * Day 14 fo viral infection, unlikely she would benefit with Veklury. Ferritin and LDH are wnl. She is now on RA sating adequately * Sputum Cx with gram stain, PRN decongestant/expectorant and IS as directed Bacteremia from Pyelonephritis, POA * 2/ bottles * Positive for GNR * On intravenous 750 mg Levaquin daily Normocytic Hypochromic Anemia with Hgb of 11 grams * No report or active bleeding or melena * This is likely due to acute illness * Hgb level is now 10.3 grams * We will monitor Mildly Elevated D-dimer of 0.76 and 0.90, POA * She is on RA sating adequately * Lovenox 40 mg sub daily fro DVT prophylaxis Increased AG Metabolic Acidosis, POA * Due to sepsis * AG of 20.6-->now 20.1 and LA of 2.8-->now 1.1 * CO2 of 19-->now 18 * Currently hydrating * We will monitor Hyperglycemia with DM2 * BS not well controlled * BS in the 200s-300s * She is on steroid as part of Covid treatment regimen * Accu-check TID with high intensity ISS and Lantus 20 units subQ BID * Continue to adjust insulin regimen Elevated Liver Enzymes, POA, likely improved * AST of 57 an ALT of 70 * We will hold statin for now and resume it in a couple of days Elevated proBNP of 306, POA * She is not volume overloaded * We will monitor Hypoalbuminemia with Albumin of 3.1, POA * Likely due to acute illness and poor nutritional intake Vit D Deficiency * Vit D level of 7.0 * Start Vit D supplement Class I Obese * BMI of 30.8 * Dietary consult for weight management Nicotine Dependence * Counseled on smoking cessation * Nicotine patch daily Generalized Weakness * Likely form acute illness * Also Vit D deficient * PT/OT consult Resolved: Hypoxia with O2 satin the 80s, resolved * She is an active smoker * Has active covid -19 infection * She was initially on 4L but slowly titrated down * Now on RA Febrile Illness, POA, resolved * Had a temp as high as 39.3C * Has anti-pyretic agents * Currently afebrile Leukocytosis with initial WBC of 11.74, resolved * Repeat WBC is 3.3-->now 9.90 * Treatment as above * We will monitor Lactic Acidosis, resolved * This from sepsis * LA of 2.8--> now 1.1 Sinus Tachycardia nd Tachypnea, resolved * Due to sepsis * She is on Telemetry Hypocalcemia with Non-corrected CA of 8.3 * Corrected CA is 9.0mg /dl * We will monitor Hypomagnesemia with initial Mg level of 1.4, resolved * Likely from poor nutritional intake * We will replete and monitor Chronic: HTN, HLD, DM2, Active Smoker and Obesity Plan: She looks clinically stable. Continue current treatment. Discontinue IV fluids for hydration. Continue Vit D, Zinc, and Oral steroid for COVID-19 treatment. AHA/ADA diet. Accu-check TID with ISS and Lantus 20 units subQ BID. RT to assess and treat. PT/OT for generalized weakness. Repeat blood culture in AM. LOS > 96hrs pending repeat blood after 48 hrs. 04/11/2020 Patient is doing much better. She has only of mild backache with nothing significant. No fevers. White count is down to 6.3 and CRP of 13.8. Small anion gap of 17 but not significant. Continues on Levaquin and blood cultures have shown E. coli that is pansensitive. She does not require supplemental O2 and is independent in her room. Plan * Switch Levaquin to Keflex * Await results of second blood cultures before discharge * Complete a total of 7 to 10 days of antibiotics * Monitor CBC, electrolytes, renal function, C-reactive protein 04/12/2020 Patient continues to feel well. She has a mild dry cough. CRP down to 7.6, magnesium is a little low at 1.7, and potassium is borderline at 3.5. These are likely down because of poor oral intake previously and they should resolve with continued oral intake. Blood cultures are still pending and these are being followed. She is off of IV fluids and oxygen. Urine culture grew out E. coli that is pansensitive. Awaiting follow-up cultures. Plan * DC dexamethasone * Patient does smoke but she does not like the patch because it makes her sick. * She wants nicotine gum at discharge. * She will be sent home on Keflex * Continue monitoring blood pressure and temperature since both were borderline high today. Length of stay greater than 96 hours secondary to positive blood cultures and waiting for repeat blood cultures 04/13/2020 Patient continues to feel well. Awaiting today's results of blood cultures and monitor condition after switching to oral antibiotics. White count today was 4.7 with a CRP of 7.2. Low-grade fever resolved overnight. Continue to monitor. Plan * Await blood cultures results * Continue Keflex * Plan discharge tomorrow * Continue to monitor vitals and blood count.
[2020-04-12] MEDS: Enoxaparin 40 MG/0.4 ML Syringe SUBCUT SCH (08:49)
[2020-04-12] MEDS: Insulin Glarg,Human.Rec.Analog 100 Unit/ML SUBCUT SCH ×2 (08:50→20:56)
[2020-04-12] MEDS: Enalapril 5 MG Tab PO SCH (08:57)
[2020-04-12] MEDS: Aspirin 81 MG Tab.EC PO SCH (08:57)
[2020-04-12] MEDS: Dexamethasone 4 MG Tab PO SCH (08:58)
[2020-04-12] MEDS: Rosuvastatin 10 MG Tab PO SCH (08:58)
[2020-04-12] MEDS: Zinc Sulfate 220 MG Cap PO SCH (08:58)
[2020-04-12] MEDS: Cholecalciferol (Vitamin D3) 5,000 UNIT Cap PO SCH (08:58)
[2020-04-12] MEDS: Acetaminophen 325 MG Tab PO PRN (09:01)
[2020-04-12] MEDS: VICTOZA SUBCUT SCH (09:17)
[2020-04-12] MEDS: Nicotine 14 MG/24 Hr Patch TRDERM SCH (09:17)
[2020-04-13] MEDS: Cephalexin 500 MG Cap PO SCH ×2 (05:04→12:08)
[2020-04-13] MEDS: Insulin Glarg,Human.Rec.Analog 100 Unit/ML SUBCUT SCH (08:25)
[2020-04-13] MEDS: Aspirin 81 MG Tab.EC PO SCH (08:26)
[2020-04-13] MEDS: Acetaminophen 325 MG Tab PO PRN ×2 (08:26→14:10)
[2020-04-13] MEDS: Zinc Sulfate 220 MG Cap PO SCH (08:27)
[2020-04-13] MEDS: Enalapril 5 MG Tab PO SCH (08:27)
[2020-04-13] MEDS: VICTOZA SUBCUT SCH (08:27)
[2020-04-13] MEDS: Cholecalciferol (Vitamin D3) 5,000 UNIT Cap PO SCH (08:27)
[2020-04-13] MEDS: Rosuvastatin 10 MG Tab PO SCH (08:27)
[2020-04-13] MEDS: Enoxaparin 40 MG/0.4 ML Syringe SUBCUT SCH (08:28)
[2020-04-13] MEDS: Nicotine 14 MG/24 Hr Patch TRDERM SCH (08:28)
[2020-04-13] MEDS ORDERED: Magnesium Sulfate/Water 2 GM in Premix Bag 1 BAG IV ONE (08:42)
--- NOTE | 2020-04-13 11:48 | PCM.PN ---
- General Info Date of Service: 04/13/20 Admission Dx/Problem (Free Text): Admission Diagnosis/Problem Admission Diagnosis/Problem Bandemia Subjective Update: Patient is doing well. No complaints currently. Functional Status: Reports: Pain Controlled - Review of Systems General: Reports: No Symptoms HEENT: Reports: No Symptoms Pulmonary: Reports: No Symptoms Cardiovascular: Reports: No Symptoms Musculoskeletal: Reports: No Symptoms Neurological: Reports: No Symptoms Psychiatric: Reports: No Symptoms - Patient Data Vitals - Most Recent: Last Vital Signs Temp 98.8 F 04/13/20 07:58 Pulse 77 04/13/20 07:58 Resp 16 04/13/20 07:58 BP 119/82 04/13/20 08:27 Pulse Ox 99 04/13/20 07:58 Weight - Most Recent: 201 lb 4.8 oz I&O - Last 24 Hours: Intake & Output 04/12/20 04/13/20 04/13/20 22:59 06:59 14:59 Intake Total 1620 500 180 Output Total 1300 150 Balance 320 350 180 Lab Results Last 24 Hours: Laboratory Results - last 24 hr 04/12/20 04/13/20 04/13/20 Range/Units 17:21 04:38 04:38 WBC 4.71 (3.98-10.04) K/mm3 RBC 4.80 (3.98-5.22) M/mm3 Hgb 11.5 (11.2-15.7) gm/dl Hct 36.6 (34.1-44.9) % MCV 76.3 L (79.4-94.8) fl MCH 24.0 L (25.6-32.2) pg MCHC 31.4 L (32.2-35.5) g/dl RDW Std Deviation 44.5 (36.4-46.3) fL Plt Count 215 (182-369) K/mm3 MPV 9.4 (9.4-12.3) fl Neut % (Auto) 56.5 (34.0-71.1) % Lymph % (Auto) 20.6 (19.3-51.7) % [place] % (Auto) 20.8 H (4.7-12.5) % Eos % (Auto) 0.2 L (0.7-5.8) Baso % (Auto) 0.2 (0.1-1.2) % Neut # (Auto) 2.66 (1.56-6.13) K/mm3 Lymph # (Auto) 0.97 L (1.18-3.74) K/mm3 [place] # (Auto) 0.98 H (0.24-0.36) K/mm3 Eos # (Auto) 0.01 L (0.04-0.36) K/mm3 Baso # (Auto) 0.01 (0.01-0.08) K/mm3 Manual Slide Review Abnormal smear Sodium 139 (136-145) mEq/L Potassium 3.8 (3.5-5.1) mEq/L Chloride 102 (98-107) mEq/L Carbon Dioxide 25 (21-32) mEq/L Anion Gap 15.8 H (5-15) BUN 18 (7-18) mg/dL Creatinine 0.7 (0.55-1.02) mg/dL Est Cr Clr Drug Dosing 109.41 mL/min Estimated GFR (MDRD) > 60 (>60) mL/min BUN/Creatinine Ratio 25.7 H (14-18) Glucose 186 H (74-106) mg/dL POC Glucose 332 H (70-105) mg/dL Calcium 8.5 (8.5-10.1) mg/dL Magnesium 1.7 L (1.8-2.4) mg/dl C-Reactive Protein 7.2 H* (<1.0) mg/dL 04/13/20 04/13/20 Range/Units 06:20 10:55 WBC (3.98-10.04) K/mm3 RBC (3.98-5.22) M/mm3 Hgb (11.2-15.7) gm/dl Hct (34.1-44.9) % MCV (79.4-94.8) fl MCH (25.6-32.2) pg MCHC (32.2-35.5) g/dl RDW Std Deviation (36.4-46.3) fL Plt Count (182-369) K/mm3 MPV (9.4-12.3) fl Neut % (Auto) (34.0-71.1) % Lymph % (Auto) (19.3-51.7) % [place] % (Auto) (4.7-12.5) % Eos % (Auto) (0.7-5.8) Baso % (Auto) (0.1-1.2) % Neut # (Auto) (1.56-6.13) K/mm3 Lymph # (Auto) (1.18-3.74) K/mm3 [place] # (Auto) (0.24-0.36) K/mm3 Eos # (Auto) (0.04-0.36) K/mm3 Baso # (Auto) (0.01-0.08) K/mm3 Manual Slide Review Sodium (136-145) mEq/L Potassium (3.5-5.1) mEq/L Chloride (98-107) mEq/L Carbon Dioxide (21-32) mEq/L Anion Gap (5-15) BUN (7-18) mg/dL Creatinine (0.55-1.02) mg/dL Est Cr Clr Drug Dosing mL/min Estimated GFR (MDRD) (>60) mL/min BUN/Creatinine Ratio (14-18) Glucose (74-106) mg/dL POC Glucose 168 H 209 H (70-105) mg/dL Calcium (8.5-10.1) mg/dL Magnesium (1.8-2.4) mg/dl C-Reactive Protein (<1.0) mg/dL Kenny Results Last 24 Hours: Microbiology 04/11/20 11:10 Aerobic Blood Culture - Preliminary Blood - Venous NO GROWTH AFTER 2 DAYS Anaerobic Blood Culture - Preliminary NO GROWTH AFTER 2 DAYS 04/11/20 11:05 Aerobic Blood Culture - Preliminary Blood - Venous - Lab Draw NO GROWTH AFTER 2 DAYS Anaerobic Blood Culture - Preliminary NO GROWTH AFTER 2 DAYS 04/09/20 01:05 Aerobic Blood Culture - Final Blood - Venous Escherichia Coli Anaerobic Blood Culture - Final Escherichia Coli 04/09/20 01:18 Aerobic Blood Culture - Final Blood - Venous - Lab Draw Escherichia Coli Anaerobic Blood Culture - Final Escherichia Coli Med Orders - Current: Current Medications Acetaminophen (Tylenol) 650 mg PO Q4H PRN PRN Reason: Pain Last Admin: 04/13/20 08:26 Dose: 650 mg Documented by: Hydrocodone Bitart/Acetaminophen ([place] 325-5 Mg) 1 tab PO Q4H PRN PRN Reason: Pain (moderate 4-6) Albuterol/Ipratropium (Duoneb 3.0-0.5 Mg/3 Ml) 3 ml NEB Q4H PRN PRN Reason: Shortness Of Breath/wheezing Aspirin (Halfprin) 81 mg PO DAILY [facility] Last Admin: 04/13/20 08:26 Dose: 81 mg Documented by: Cephalexin (Keflex) 500 mg PO Q6HR [facility] Last Admin: 04/13/20 05:04 Dose: 500 mg Documented by: Cholecalciferol (Vitamin D3) 5,000 unit PO DAILY [facility] Last Admin: 04/13/20 08:27 Dose: 5,000 unit Documented by: Enalapril Maleate (Vasotec) 10 mg PO DAILY [facility] Last Admin: 04/13/20 08:27 Dose: 10 mg Documented by: Enoxaparin Sodium (Lovenox) 40 mg SUBCUT DAILY [facility] Last Admin: 04/13/20 08:28 Dose: 40 mg Documented by: Guaifenesin/Phenylephrine HCl (Robitussin Dm) 10 ml PO Q4H PRN PRN Reason: Cough Hydralazine HCl (Apresoline) 20 mg IVPUSH Q4H PRN PRN Reason: Hypertension Last Admin: 04/09/20 04:30 Dose: 20 mg Documented by: Hydromorphone HCl (Dilaudid) 0.5 mg IVPUSH Q2H PRN PRN Reason: Pain (severe 7-10) Promethazine HCl 12.5 mg/ (Sodium Chloride) 50.5 mls @ 100 mls/hr IV Q6H PRN PRN Reason: Nausea/Vomiting Ibuprofen (Motrin) 600 mg PO Q6H PRN PRN Reason: Pain (moderate 4-6) Insulin Glargine (Lantus) 23 unit SUBCUT BID [facility] Last Admin: 04/13/20 08:25 Dose: 23 units Documented by: Insulin Human Lispro (Humalog) 0 unit SUBCUT TIDAC [facility]; Protocol Last Admin: 04/13/20 08:26 Dose: 3 units Documented by: Lorazepam (Ativan) 1 mg IVPUSH Q4H PRN PRN Reason: Anxiety Last Admin: 04/09/20 04:23 Dose: 1 mg Documented by: Metoprolol Tartrate (Lopressor) 5 mg IVPUSH Q4H PRN PRN Reason: Tachycardia Last Admin: 04/09/20 04:26 Dose: 5 mg Documented by: Mirtazapine (Remeron) 45 mg PO QPM PRN PRN Reason: Anxiety Miscellaneous Information (Remove Patch) 1 ea TRDERM DAILY [facility] Last Admin: 04/13/20 08:28 Dose: Not Given Documented by: Nicotine (Habitrol) 14 mg TRDERM DAILY [facility] Last Admin: 04/13/20 08:28 Dose: Not Given Documented by: Ondansetron HCl (Zofran) 4 mg IV Q6H PRN PRN Reason: Nausea/Vomiting Last Admin: 04/11/20 12:21 Dose: 4 mg Documented by: Polyethylene Glycol (Miralax) 17 gm PO DAILY PRN PRN Reason: Constipation Rosuvastatin Calcium (Crestor) 40 mg PO DAILY [facility] Last Admin: 04/13/20 08:27 Dose: 40 mg Documented by: Senna/Docusate Sodium (Senna Plus) 1 tab PO BID PRN PRN Reason: Constipation Zinc Sulfate (Zincate) 220 mg PO DAILY [facility] Last Admin: 04/13/20 08:27 Dose: 220 mg Documented by: Zolpidem Tartrate (Ambien) 5 mg PO BEDTIME PRN PRN Reason: Sleep Discontinued Medications Dexamethasone (Dexamethasone) 10 mg PO DAILY [facility] Stop: 04/14/20 09:01 Last Admin: 04/12/20 08:58 Dose: 10 mg Documented by: Dexamethasone (Dexamethasone) 10 mg PO ONETIME ONE Stop: 04/09/20 13:04 Last Admin: 04/09/20 13:45 Dose: 10 mg Documented by: Sodium Chloride (Normal Saline) 1,000 mls @ 150 mls/hr IV ASDIRECTED [facility] Last Admin: 04/10/20 03:27 Dose: 150 mls/hr Documented by: Magnesium Sulfate 4 gm/ Premix 50 mls @ 12.5 mls/hr IV ONETIME ONE Stop: 04/09/20 04:58 Last Admin: 04/09/20 01:13 Dose: 12.5 mls/hr Documented by: Levofloxacin/Dextrose 750 mg/ (Premix) 150 mls @ 100 mls/hr IV ONETIME STA Stop: 04/09/20 02:28 Last Admin: 04/09/20 01:31 Dose: 100 mls/hr Documented by: Levofloxacin/Dextrose 750 mg/ (Premix) 150 mls @ 100 mls/hr IV ONETIME ONE Stop: 04/09/20 02:59 Last Admin: 04/09/20 05:17 Dose: Not Given Documented by: Levofloxacin/Dextrose 750 mg/ (Premix) 150 mls @ 100 mls/hr IV Q24H [facility] Last Admin: 04/10/20 21:24 Dose: 100 mls/hr Documented by: Sodium Chloride (Normal Saline) 1,000 mls @ 999 mls/hr IV ONETIME ONE Stop: 04/09/20 07:48 Last Admin: 04/09/20 07:44 Dose: 999 mls/hr Documented by: Magnesium Sulfate 2 gm/ Premix 50 mls @ 25 mls/hr IV ONETIME ONE Stop: 04/12/20 10:17 Last Admin: 04/12/20 08:52 Dose: 25 mls/hr Documented by: Magnesium Sulfate 2 gm/ Premix 50 mls @ 25 mls/hr IV ONETIME ONE Stop: 04/13/20 10:41 Last Admin: 04/13/20 08:59 Dose: 25 mls/hr Documented by: Insulin Glargine (Lantus) 15 unit SUBCUT QPM [facility] Insulin Glargine (Lantus) 18 unit SUBCUT QPM [facility] Insulin Glargine (Lantus) 20 unit SUBCUT QPM [facility] Last Admin: 04/09/20 18:02 Dose: 20 units Documented by: Insulin Glargine (Lantus) 20 unit SUBCUT BID [facility] Last Admin: 04/10/20 09:20 Dose: 20 units Documented by: Insulin Human Lispro (Humalog) 3 unit SUBCUT TIDAC [facility] Insulin Human Lispro (Humalog) 0 unit SUBCUT ONETIME ONE; Protocol Stop: 04/11/20 09:31 Last Admin: 04/11/20 09:58 Dose: 6 units Documented by: Insulin Human Regular (Humulin R) 18 unit SUBCUT ONETIME STA Stop: 04/09/20 01:04 Last Admin: 04/09/20 01:22 Dose: 18 unit Documented by: Lorazepam (Ativan) Confirm Administered Dose 2 mg .ROUTE .STK-MED ONE Stop: 04/09/20 04:21 Last Admin: 04/09/20 04:25 Dose: Not Given Documented by: Ondansetron HCl (Zofran) Confirm Administered Dose 4 mg .ROUTE .STK-MED ONE Stop: 04/09/20 04:12 Last Admin: 04/09/20 04:20 Dose: 4 mg Documented by: Ondansetron HCl (Zofran) 4 mg IVPUSH ONETIME ONE Stop: 04/09/20 04:16 Last Admin: 04/09/20 09:12 Dose: Not Given Documented by: Victoza (Liraglutide 1.8 Mg) Patient' s Own Med 0 each SUBCUT DAILY [facility] Last Admin: 04/13/20 08:27 Dose: Not Given Documented by: Potassium Chloride (Klor-Con M20) 40 meq PO ONETIME ONE Stop: 04/12/20 08:19 Last Admin: 04/12/20 08:58 Dose: 40 meq Documented by: Rosuvastatin Calcium (Crestor) 40 mg PO DAILY [facility] Last Admin: 04/09/20 09:18 Dose: 40 mg Documented by: - Exam Quality Assessment: No: Supplemental Oxygen General: Alert, Oriented HEENT: Pupils Equal, Mucous Membr. Moist/[place] Neck: Supple Lungs: Clear to Auscultation, Normal Respiratory Effort Cardiovascular: Regular Rate, Regular Rhythm GI/Abdominal Exam: Normal Bowel Sounds, Soft, Non-Tender, No Organomegaly, No Distention, No Abnormal Bruit, No Mass Extremities: Normal Inspection, Normal Range of Motion, Non-Tender, No Pedal Edema, Normal Capillary Refill Skin: Warm, Dry, Intact Neurological: No New Focal Deficit Psy/Mental Status: Alert, Normal Affect, Normal Mood Sepsis Event Note - Evaluation Sepsis Screening Result: No Definite Risk - Focused Exam Vital Signs: Vital Signs Temp Pulse Resp BP Pulse Ox Pulse Ox 04/13/20 08:27 119/82 04/13/20 07:58 98.8 F 77 16 119/82 99 04/13/20 04:32 97 04/13/20 03:48 98.1 F 65 16 137/103 H 99 04/13/20 00:09 98.1 F 62 20 128/78 100 04/12/20 23:53 98.2 F 60 20 157/81 H 98 - Problem List & Annotations (1) COVID-19 SNOMED Code(s): 461871675 Code(s): U07.1 - COVID-19 Status: Acute Current Visit: Yes (2) Hyperglycemia due to type 2 diabetes mellitus SNOMED Code(s): 162544794965988, 391659835070021 Code(s): E11.65 - TYPE 2 DIABETES MELLITUS WITH HYPERGLYCEMIA Status: Acute Current Visit: Yes (3) UTI (urinary tract infection) SNOMED Code(s): 21282287 Code(s): N39.0 - URINARY TRACT INFECTION, SITE NOT SPECIFIED Status: Acute Current Visit: Yes - Problem List Review Problem List Initiated/Reviewed/Updated: Yes - Plan Plan:: This is a 44 yo female with past medical hx/o HTN, HLD, DM2, Active Smoker and Obesity who was admitted overnight for worsening Covid-19 Infection associated with back and was diagnosed with Pyelonephritis. Assessment: Acute: Moderate Sepsis 2/2 Pyelonephritis and Covid-19 Infection, POA * She meets criteria on admission * Tachycardic, tachypneic, borderline low blood pressure and a temp as high as 39.3 C * WBC of 11.74-->now 9.90 and LA of 2.8-->now 1.1 * Procal of 3.99 and CRP of 26.6 * She is clinically stable * She is now on RA sating well * Continue IV Levaquin 750 mg daily Pyelonephritis * Positive for bilateral CVA tenderness: R>L * UA is positive for pyuria * Urine Cx shows GNR * Continue intravenous quinolone Viral Pneumonitis/Atypical Pneumonia, POA * Diagnosed at [place] on 03/26/2020 * She never received any treatment * No monoclonol antibodies given: Shona or Regeneron * She was told to quarantine * CXR report read as minimal density within the right middle love with additional mild atelectasis likely represent COVID-19 pneumonia * Dexamethasone 10 mg po daily fro 5 days, Zinc and Vit d supplement, intravenous abx with Levaquin daily * Day 14 fo viral infection, unlikely she would benefit with Veklury. Ferritin and LDH are wnl. She is now on RA sating adequately * Sputum Cx with gram stain, PRN decongestant/expectorant and IS as directed Bacteremia from Pyelonephritis, POA * 2/4 bottles * Positive for GNR * On intravenous 750 mg Levaquin daily Normocytic Hypochromic Anemia with Hgb of 11 grams * No report or active bleeding or melena * This is likely due to acute illness * Hgb level is now 10.3 grams * We will monitor Mildly Elevated D-dimer of 0.76 and 0.90, POA * She is on RA sating adequately * Lovenox 40 mg sub daily fro DVT prophylaxis Increased AG Metabolic Acidosis, POA * Due to sepsis * AG of 20.6-->now 20.1 and LA of 2.8-->now 1.1 * CO2 of 19-->now 18 * Currently hydrating * We will monitor Hyperglycemia with DM2 * BS not well controlled * BS in the 200s-300s * She is on steroid as part of Covid treatment regimen * Accu-check TID with high intensity ISS and Lantus 20 units subQ BID * Continue to adjust insulin regimen Elevated Liver Enzymes, POA, likely improved * AST of 57 an ALT of 70 * We will hold statin for now and resume it in a couple of days Elevated proBNP of 306, POA * She is not volume overloaded * We will monitor Hypoalbuminemia with Albumin of 3.1, POA * Likely due to acute illness and poor nutritional intake Vit D Deficiency * Vit D level of 7.0 * Start Vit D supplement Class I Obese * BMI of 30.8 * Dietary consult for weight management Nicotine Dependence * Counseled on smoking cessation * Nicotine patch daily Generalized Weakness * Likely form acute illness * Also Vit D deficient * PT/OT consult Resolved: Hypoxia with O2 satin the 80s, resolved * She is an active smoker * Has active covid -19 infection * She was initially on 4L but slowly titrated down * Now on RA Febrile Illness, POA, resolved * Had a temp as high as 39.3C * Has anti-pyretic agents * Currently afebrile Leukocytosis with initial WBC of 11.74, resolved * Repeat WBC is 3.3-->now 9.90 * Treatment as above * We will monitor Lactic Acidosis, resolved * This from sepsis * LA of 2.8--> now 1.1 Sinus Tachycardia nd Tachypnea, resolved * Due to sepsis * She is on Telemetry Hypocalcemia with Non-corrected CA of 8.3 * Corrected CA is 9.0mg /dl * We will monitor Hypomagnesemia with initial Mg level of 1.4, resolved * Likely from poor nutritional intake * We will replete and monitor Chronic: HTN, HLD, DM2, Active Smoker and Obesity Plan: She looks clinically stable. Continue current treatment. Discontinue IV fluids for hydration. Continue Vit D, Zinc, and Oral steroid for COVID-19 treatment. AHA/ADA diet. Accu-check TID with ISS and Lantus 20 units subQ BID. RT to assess and treat. PT/OT for generalized weakness. Repeat blood culture in AM. LOS > 96hrs pending repeat blood after 48 hrs. 04/11/2020 Patient is doing much better. She has only of mild backache with nothing significant. No fevers. White count is down to 6.3 and CRP of 13.8. Small anion gap of 17 but not significant. Continues on Levaquin and blood cultures have shown E. coli that is pansensitive. She does not require supplemental O2 and is independent in her room. Plan * Switch Levaquin to Keflex * Await results of second blood cultures before discharge * Complete a total of 7 to 10 days of antibiotics * Monitor CBC, electrolytes, renal function, C-reactive protein 04/12/2020 Patient continues to feel well. She has a mild dry cough. CRP down to 7.6, magnesium is a little low at 1.7, and potassium is borderline at 3.5. These are likely down because of poor oral intake previously and they should resolve with continued oral intake. Blood cultures are still pending and these are being followed. She is off of IV fluids and oxygen. Urine culture grew out E. coli that is pansensitive. Awaiting follow-up cultures. Plan * DC dexamethasone * Patient does smoke but she does not like the patch because it makes her sick. * She wants nicotine gum at discharge. * She will be sent home on Keflex * Continue monitoring blood pressure and temperature since both were borderline high today. Length of stay greater than 96 hours secondary to positive blood cultures and waiting for repeat blood cultures 04/13/2020 Patient continues to feel well. Awaiting today's results of blood cultures and monitor condition after switching to oral antibiotics. White count today was 4.7 with a CRP of 7.2. Low-grade fever resolved overnight. Continue to monitor. Plan * Await blood cultures results * Continue Keflex * Plan discharge tomorrow * Continue to monitor vitals and blood count.
--- NOTE | 2020-04-13 14:24 | PCM.DCSUM1 ---
Discharge Summary - Hospital Course HPI Initial Comments: This is a 44 yo female with past medical hx/o HTN, HLD, DM2, Active Smoker and Obesity who was admitted overnight for worsening Covid-19 Infection associated with back and was diagnosed with Pyelonephritis. She states she was diagnosed in [place] for covid-19 on 03/26/2020. She was symptomatic at that time but never received any treatment. She did complete her quarantine protocol but her symptoms continue to get worse. She has been having on and off fever. No chest pain or shortness of breath but has a non productive cough. Her appetite has not been great. She has loss of sense of smell and taste. She feels fatigue and has had generalized body aches. Her initial work work revealed a CBC remarkable for WBC of 11.74 but improved to 3.3 with neutrophils count of 76%. Her d-dimer was mildly elevated at 0.76 and 0.90. Her most recent chemistry reveals a CO2 of 19, AG of 20.6, BS of 225, LA of 2.8, Ca of 8.3, AST of 57, ALT of 70, proBNP of 306, Albumin of 3.1 and Vit D level of 7.0. His UA shows pyuria. Patient was admitted for UTI. This is a 44 yo female with past medical hx/o HTN, HLD, DM2, Active Smoker and Obesity who was admitted overnight for worsening Covid-19 Infection associated with back and was diagnosed with Pyelonephritis. Assessment: Acute: Moderate Sepsis 2/2 Pyelonephritis and Covid-19 Infection, POA * She meets criteria on admission * Tachycardic, tachypneic, borderline low blood pressure and a temp as high as 39.3 C * WBC of 11.74 and LA of 2.8 * She is a bit better clinically * She is now on RA sating well * Continue IV Levaquin 750 mg daily Pyelonephritis * Positive for bilateral CVA tenderness: R>L * UA is positive for pyuria * Urine Cx shows GNR * Continue intravenous quinolone Viral Pneumonitis/Atypical Pneumonia, POA * Diagnosed at [place] on 03/26/2020 * She never received any treatment * No monoclonol antibodies given: Shona or Regeneron * She was told to quarantine * CXR report read as minimal density within the right middle love with additional mild atelectasis likely represent COVID-19 pneumonia * Dexamethasone 10 mg po daily fro 5 days, Zinc and Vit d supplement, intravenous abx with Levaquin daily * Day 14 fo viral infection, unlikely she would benefit with Veklury. Ferritin and LDH are wnl. She is now on RA sating adequately. * Sputum Cx with gram stain, PRN decongestant/expectorant and IS as directed Bacteremia from Pyelonephritis, POA * 2/4 bottles * Positive for GNR * On intravenous 750 mg Levaquin daily Hypoxia with O2 satin the 80s * She is an active smoker * Has active covid -19 infection * She was initially on 4L but slowly titrated down * Currently on RA sating adequately Febrile Illness, POA * Had a temp as high as 39.3C * Has anti-pyretic agents * Currently afebrile Leukocytosis with initial WBC of 11.74 * Repeat WBC is 3.3 * Treatment as above * We will monitor Normocytic Hypochromic Anemia with Hgb of 11 grams * No report or active bleeding or melena * This is likely due to acute illness * We will monitor Mildly Elevated D-dimer of 0.76 and 0.90, POA * She is on RA sating adequately * Lovenox 40 mg sub daily fro DVT prophylaxis Increased AG Metabolic Acidosis, POA * Due to sepsis * AG of 20.6 and LA of 2.8 * CO2 of 19 * Currently hydrating * We will monitor Lactic Acidosis, resolved * This from sepsis * LA of 2.8--> now 1.1 Hyperglycemia with DM2 * BS not well controlled * BS in the 200s-300s * She is on steroid as part of Covid treatment regimen * Accu-check TID with high intensity ISS and Lantus 20 units subQ BID Hypocalcemia with Non-corrected CA of 8.3 * Corrected CA is 9.0mg /dl * We will monitor Hypomagnesemia with initial Mg level of 1.4 * Likely from poor nutritional intake * We will replete and monitor Elevated Liver Enzymes, POA * AST of 57 an ALT of 70 * We will hold statin for now and resume it in a couple of days Elevated proBNP of 306, POA * She is not volume overloaded * We will monitor Hypoalbuminemia with Albumin of 3.1, POA * Likely due to acute illness and poor nutritional intake Vit D Deficiency * Vit D level of 7.0 * Start Vit D supplement Class I Obese * BMI of 30.8 * Dietary consult for weight management Nicotine Dependence * Counseled on smoking cessation * Nicotine patch daily Generalized Weakness * Likely form acute illness * Also Vit D deficient * PT/OT consult Sinus Tachycardia nd Tachypnea * Due to sepsis * She is on Telemetry Chronic: HTN, HLD, DM2, Active Smoker and Obesity Plan: She was admitted overnight by ED provider. Change admission status to inpatient. Continue current treatment. Monitor for worsening sepsis. IV fluids for hydration. LA is now back to normal after initial volume resuscitation. Vit. D, Zinc, and Oral steroid for COVID-19 treatment. She is almost 14 days into her illness, unlikely she would benefit with Veklury. AHA/ADA diet. Accu-check TID with ISS and Lantus 20 units subQ BID. RT to assess and treat. PT/OT for generalized weakness. Critical care time spent: > 40 mins. Diagnosis: Stroke: No - Discharge Data Discharge Date: 04/13/20 Discharge Disposition: Home, Self-Care 01 Condition: Good - Referral to Home Health Primary Care Physician: PCP None - Discharge Diagnosis/Problem(s) (1) COVID-19 SNOMED Code(s): 827893718 ICD Code: U07.1 - COVID-19 Status: Acute (2) Hyperglycemia due to type 2 diabetes mellitus SNOMED Code(s): 759137562539504, 732505031541516 ICD Code: E11.65 - TYPE 2 DIABETES MELLITUS WITH HYPERGLYCEMIA Status: Acute (3) UTI (urinary tract infection) SNOMED Code(s): 57308311 ICD Code: N39.0 - URINARY TRACT INFECTION, SITE NOT SPECIFIED Status: Acute - Patient Summary/Data Consults: Consultations 04/09/20 07:27 Consult to Case Management/Arc Air Operator [CONS] Routine Consult to Rotary Derrick Operator [CONS] Routine OT Evaluation and Treatment [CONS] Routine PT Evaluation and Treatment [CONS] Routine Respiratory Care Assess and Treatment [CONS] Routine Hospital Course: 04/11/2020 Patient is doing much better. She has only of mild backache with nothing significant. No fevers. White count is down to 6.3 and CRP of 13.8. Small anion gap of 17 but not significant. Continues on Levaquin and blood cultures have shown E. coli that is pansensitive. She does not require supplemental O2 and is independent in her room. Plan * Switch Levaquin to Keflex * Await results of second blood cultures before discharge * Complete a total of 7 to 10 days of antibiotics * Monitor CBC, electrolytes, renal function, C-reactive protein 04/12/2020 Patient continues to feel well. She has a mild dry cough. CRP down to 7.6, magnesium is a little low at 1.7, and potassium is borderline at 3.5. These are likely down because of poor oral intake previously and they should resolve with continued oral intake. Blood cultures are still pending and these are being followed. She is off of IV fluids and oxygen. Urine culture grew out E. coli that is pansensitive. Awaiting follow-up cultures. Plan * DC dexamethasone * Patient does smoke but she does not like the patch because it makes her sick. * She wants nicotine gum at discharge. * She will be sent home on Keflex * Continue monitoring blood pressure and temperature since both were borderline high today. Length of stay greater than 96 hours secondary to positive blood cultures and waiting for repeat blood cultures 04/13/2020 Patient continues to feel well. Awaiting today's results of blood cultures and monitor condition after switching to oral antibiotics. White count today was 4.7 with a CRP of 7.2. Low-grade fever resolved overnight. Continue to monitor. Plan * Await blood cultures results * Continue Keflex * Plan discharge tomorrow * Continue to monitor vitals and blood count. Blood cultures did return after 48 hours as negative. She will be continued on Keflex for another 4 days. Follow-up with her primary care provider. - Patient Instructions Diet: Diabetic Diet Activity: As Tolerated Showering/Bathing: May Shower Other/Special Instructions: Follow-up with your primary care provider in 1 week - Discharge Plan *PRESCRIPTION DRUG MONITORING PROGRAM REVIEWED*: Not Applicable *COPY OF PRESCRIPTION DRUG MONITORING REPORT IN PATIENT CAR: Not Applicable Prescriptions/Med Rec: cephALEXin [Keflex] 500 mg PO Q6HR #20 cap Nicotine Polacrilex [Nicorette] 2 mg BC Q2H PRN #30 gum PRN Reason: Withdrawal Symptoms Home Medications: Home Meds Aspirin [Halfprin] 81 mg PO DAILY 09/04/17 [History] metFORMIN [Glucophage XR] 1,000 mg PO BIDMEALS 09/04/17 [History] Enalapril [Vasotec] 10 mg PO DAILY 08/21/18 [History] Liraglutide [Victoza] 1.8 mg SUBCUT DAILY 08/21/18 [History] Mirtazapine 45 mg PO QPM PRN 08/21/18 [History] Insulin Aspart [NovoLOG] 0 unit SQ WITHMEALSANDBED #1 vial 12/31/18 [Rx] Insulin Aspart [NovoLOG] 3 unit SQ TIDAC #1 vial 12/31/18 [Rx] Insulin Glarg,Human.Rec.Analog [Lantus] 15 unit SUBCUT QPM #1 vial 12/31/18 [Rx] Rosuvastatin [Crestor] 40 mg PO DAILY #30 tablet 12/31/18 [Rx] Nicotine Polacrilex [Nicorette] 2 mg BC Q2H PRN #30 gum 04/13/20 [Rx] cephALEXin [Keflex] 500 mg PO Q6HR #20 cap 04/13/20 [Rx] Patient Handouts: Sepsis, Diagnosis, Adult, COVID-19: How to Protect Yourself and Others - CDC, Steps to Quit Smoking - Discharge Summary/Plan Comment DC Time >30 min.: No - Patient Data Vitals - Most Recent: Last Vital Signs Temp 97.3 F 04/13/20 10:58 Pulse 80 04/13/20 10:58 Resp 16 04/13/20 10:58 BP 123/68 04/13/20 10:58 Pulse Ox 97 04/13/20 10:58 Weight - Most Recent: 201 lb 4.8 oz I&O - Last 24 hours: Intake & Output 04/12/20 04/13/20 04/13/20 22:59 06:59 14:59 Intake Total 1620 500 180 Output Total 1300 150 Balance 320 350 180 Lab Results - Last 24 hrs: Laboratory Results - last 24 hr 04/12/20 04/13/20 04/13/20 Range/Units 17:21 04:38 04:38 WBC 4.71 (3.98-10.04) K/mm3 RBC 4.80 (3.98-5.22) M/mm3 Hgb 11.5 (11.2-15.7) gm/dl Hct 36.6 (34.1-44.9) % MCV 76.3 L (79.4-94.8) fl MCH 24.0 L (25.6-32.2) pg MCHC 31.4 L (32.2-35.5) g/dl RDW Std Deviation 44.5 (36.4-46.3) fL Plt Count 215 (182-369) K/mm3 MPV 9.4 (9.4-12.3) fl Neut % (Auto) 56.5 (34.0-71.1) % Lymph % (Auto) 20.6 (19.3-51.7) % [place] % (Auto) 20.8 H (4.7-12.5) % Eos % (Auto) 0.2 L (0.7-5.8) Baso % (Auto) 0.2 (0.1-1.2) % Neut # (Auto) 2.66 (1.56-6.13) K/mm3 Lymph # (Auto) 0.97 L (1.18-3.74) K/mm3 [place] # (Auto) 0.98 H (0.24-0.36) K/mm3 Eos # (Auto) 0.01 L (0.04-0.36) K/mm3 Baso # (Auto) 0.01 (0.01-0.08) K/mm3 Manual Slide Review Abnormal smear Sodium 139 (136-145) mEq/L Potassium 3.8 (3.5-5.1) mEq/L Chloride 102 (98-107) mEq/L Carbon Dioxide 25 (21-32) mEq/L Anion Gap 15.8 H (5-15) BUN 18 (7-18) mg/dL Creatinine 0.7 (0.55-1.02) mg/dL Est Cr Clr Drug Dosing 109.41 mL/min Estimated GFR (MDRD) > 60 (>60) mL/min BUN/Creatinine Ratio 25.7 H (14-18) Glucose 186 H (74-106) mg/dL POC Glucose 332 H (70-105) mg/dL Calcium 8.5 (8.5-10.1) mg/dL Magnesium 1.7 L (1.8-2.4) mg/dl C-Reactive Protein 7.2 H* (<1.0) mg/dL 04/13/20 04/13/20 Range/Units 06:20 10:55 WBC (3.98-10.04) K/mm3 RBC (3.98-5.22) M/mm3 Hgb (11.2-15.7) gm/dl Hct (34.1-44.9) % MCV (79.4-94.8) fl MCH (25.6-32.2) pg MCHC (32.2-35.5) g/dl RDW Std Deviation (36.4-46.3) fL Plt Count (182-369) K/mm3 MPV (9.4-12.3) fl Neut % (Auto) (34.0-71.1) % Lymph % (Auto) (19.3-51.7) % [place] % (Auto) (4.7-12.5) % Eos % (Auto) (0.7-5.8) Baso % (Auto) (0.1-1.2) % Neut # (Auto) (1.56-6.13) K/mm3 Lymph # (Auto) (1.18-3.74) K/mm3 [place] # (Auto) (0.24-0.36) K/mm3 Eos # (Auto) (0.04-0.36) K/mm3 Baso # (Auto) (0.01-0.08) K/mm3 Manual Slide Review Sodium (136-145) mEq/L Potassium (3.5-5.1) mEq/L Chloride (98-107) mEq/L Carbon Dioxide (21-32) mEq/L Anion Gap (5-15) BUN (7-18) mg/dL Creatinine (0.55-1.02) mg/dL Est Cr Clr Drug Dosing mL/min Estimated GFR (MDRD) (>60) mL/min BUN/Creatinine Ratio (14-18) Glucose (74-106) mg/dL POC Glucose 168 H 209 H (70-105) mg/dL Calcium (8.5-10.1) mg/dL Magnesium (1.8-2.4) mg/dl C-Reactive Protein (<1.0) mg/dL LINDA Results - Last 24 hrs: Microbiology 04/11/20 11:10 Aerobic Blood Culture - Preliminary Blood - Venous NO GROWTH AFTER 2 DAYS Anaerobic Blood Culture - Preliminary NO GROWTH AFTER 2 DAYS 04/11/20 11:05 Aerobic Blood Culture - Preliminary Blood - Venous - Lab Draw NO GROWTH AFTER 2 DAYS Anaerobic Blood Culture - Preliminary NO GROWTH AFTER 2 DAYS 04/09/20 01:05 Aerobic Blood Culture - Final Blood - Venous Escherichia Coli Anaerobic Blood Culture - Final Escherichia Coli 04/09/20 01:18 Aerobic Blood Culture - Final Blood - Venous - Lab Draw Escherichia Coli Anaerobic Blood Culture - Final Escherichia Coli Med Orders - Current: Current Medications Acetaminophen (Tylenol) 650 mg PO Q4H PRN PRN Reason: Pain Last Admin: 04/13/20 14:10 Dose: 650 mg Documented by: Hydrocodone Bitart/Acetaminophen ([place] 325-5 Mg) 1 tab PO Q4H PRN PRN Reason: Pain (moderate 4-6) Albuterol/Ipratropium (Duoneb 3.0-0.5 Mg/3 Ml) 3 ml NEB Q4H PRN PRN Reason: Shortness Of Breath/wheezing Aspirin (Halfprin) 81 mg PO DAILY [facility] Last Admin: 04/13/20 08:26 Dose: 81 mg Documented by: Cephalexin (Keflex) 500 mg PO Q6HR [facility] Last Admin: 04/13/20 12:08 Dose: 500 mg Documented by: Cholecalciferol (Vitamin D3) 5,000 unit PO DAILY [facility] Last Admin: 04/13/20 08:27 Dose: 5,000 unit Documented by: Enalapril Maleate (Vasotec) 10 mg PO DAILY [facility] Last Admin: 04/13/20 08:27 Dose: 10 mg Documented by: Enoxaparin Sodium (Lovenox) 40 mg SUBCUT DAILY [facility] Last Admin: 04/13/20 08:28 Dose: 40 mg Documented by: Guaifenesin/Phenylephrine HCl (Robitussin Dm) 10 ml PO Q4H PRN PRN Reason: Cough Hydralazine HCl (Apresoline) 20 mg IVPUSH Q4H PRN PRN Reason: Hypertension Last Admin: 04/09/20 04:30 Dose: 20 mg Documented by: Hydromorphone HCl (Dilaudid) 0.5 mg IVPUSH Q2H PRN PRN Reason: Pain (severe 7-10) Promethazine HCl 12.5 mg/ (Sodium Chloride) 50.5 mls @ 100 mls/hr IV Q6H PRN PRN Reason: Nausea/Vomiting Ibuprofen (Motrin) 600 mg PO Q6H PRN PRN Reason: Pain (moderate 4-6) Insulin Glargine (Lantus) 23 unit SUBCUT BID [facility] Last Admin: 04/13/20 08:25 Dose: 23 units Documented by: Insulin Human Lispro (Humalog) 0 unit SUBCUT TIDAC [facility]; Protocol Last Admin: 04/13/20 12:08 Dose: 6 units Documented by: Lorazepam (Ativan) 1 mg IVPUSH Q4H PRN PRN Reason: Anxiety Last Admin: 04/09/20 04:23 Dose: 1 mg Documented by: Metoprolol Tartrate (Lopressor) 5 mg IVPUSH Q4H PRN PRN Reason: Tachycardia Last Admin: 04/09/20 04:26 Dose: 5 mg Documented by: Mirtazapine (Remeron) 45 mg PO QPM PRN PRN Reason: Anxiety Miscellaneous Information (Remove Patch) 1 ea TRDERM DAILY [facility] Last Admin: 04/13/20 08:28 Dose: Not Given Documented by: Nicotine (Habitrol) 14 mg TRDERM DAILY [facility] Last Admin: 04/13/20 08:28 Dose: Not Given Documented by: Ondansetron HCl (Zofran) 4 mg IV Q6H PRN PRN Reason: Nausea/Vomiting Last Admin: 04/11/20 12:21 Dose: 4 mg Documented by: Polyethylene Glycol (Miralax) 17 gm PO DAILY PRN PRN Reason: Constipation Rosuvastatin Calcium (Crestor) 40 mg PO DAILY [facility] Last Admin: 04/13/20 08:27 Dose: 40 mg Documented by: Senna/Docusate Sodium (Senna Plus) 1 tab PO BID PRN PRN Reason: Constipation Zinc Sulfate (Zincate) 220 mg PO DAILY [facility] Last Admin: 04/13/20 08:27 Dose: 220 mg Documented by: Zolpidem Tartrate (Ambien) 5 mg PO BEDTIME PRN PRN Reason: Sleep Discontinued Medications Dexamethasone (Dexamethasone) 10 mg PO DAILY [facility] Stop: 04/14/20 09:01 Last Admin: 04/12/20 08:58 Dose: 10 mg Documented by: Dexamethasone (Dexamethasone) 10 mg PO ONETIME ONE Stop: 04/09/20 13:04 Last Admin: 04/09/20 13:45 Dose: 10 mg Documented by: Sodium Chloride (Normal Saline) 1,000 mls @ 150 mls/hr IV ASDIRECTED [facility] Last Admin: 04/10/20 03:27 Dose: 150 mls/hr Documented by: Magnesium Sulfate 4 gm/ Premix 50 mls @ 12.5 mls/hr IV ONETIME ONE Stop: 04/09/20 04:58 Last Admin: 04/09/20 01:13 Dose: 12.5 mls/hr Documented by: Levofloxacin/Dextrose 750 mg/ (Premix) 150 mls @ 100 mls/hr IV ONETIME STA Stop: 04/09/20 02:28 Last Admin: 04/09/20 01:31 Dose: 100 mls/hr Documented by: Levofloxacin/Dextrose 750 mg/ (Premix) 150 mls @ 100 mls/hr IV ONETIME ONE Stop: 04/09/20 02:59 Last Admin: 04/09/20 05:17 Dose: Not Given Documented by: Levofloxacin/Dextrose 750 mg/ (Premix) 150 mls @ 100 mls/hr IV Q24H [facility] Last Admin: 04/10/20 21:24 Dose: 100 mls/hr Documented by: Sodium Chloride (Normal Saline) 1,000 mls @ 999 mls/hr IV ONETIME ONE Stop: 04/09/20 07:48 Last Admin: 04/09/20 07:44 Dose: 999 mls/hr Documented by: Magnesium Sulfate 2 gm/ Premix 50 mls @ 25 mls/hr IV ONETIME ONE Stop: 04/12/20 10:17 Last Admin: 04/12/20 08:52 Dose: 25 mls/hr Documented by: Magnesium Sulfate 2 gm/ Premix 50 mls @ 25 mls/hr IV ONETIME ONE Stop: 04/13/20 10:41 Last Admin: 04/13/20 08:59 Dose: 25 mls/hr Documented by: Insulin Glargine (Lantus) 15 unit SUBCUT QPM [facility] Insulin Glargine (Lantus) 18 unit SUBCUT QPM [facility] Insulin Glargine (Lantus) 20 unit SUBCUT QPM [facility] Last Admin: 04/09/20 18:02 Dose: 20 units Documented by: Insulin Glargine (Lantus) 20 unit SUBCUT BID [facility] Last Admin: 04/10/20 09:20 Dose: 20 units Documented by: Insulin [facility] Lispro (Humalog) 0 unit SUBCUT ONETIME ONE; Protocol Stop: 04/11/20 09:31 Last Admin: 04/11/20 09:58 Dose: 6 units Documented by: Insulin Human Regular (Humulin R) 18 unit SUBCUT ONETIME STA Stop: 04/09/20 01:04 Last Admin: 04/09/20 01:22 Dose: 18 unit Documented by: Lorazepam (Ativan) Confirm Administered Dose 2 mg .ROUTE .STK-MED ONE Stop: 04/09/20 04:21 Last Admin: 04/09/20 04:25 Dose: Not Given Documented by: Ondansetron HCl (Zofran) Confirm Administered Dose 4 mg .ROUTE .STK-MED ONE Stop: 04/09/20 04:12 Last Admin: 04/09/20 04:20 Dose: 4 mg Documented by: Ondansetron HCl (Zofran) 4 mg IVPUSH ONETIME ONE Stop: 04/09/20 04:16 Last Admin: 04/09/20 09:12 Dose: Not Given Documented by: Victoza (Liraglutide 1.8 Mg) Patient' s Own Med 0 each SUBCUT DAILY [facility] Last Admin: 04/13/20 08:27 Dose: Not Given Documented by: Potassium Chloride (Klor-Con M20) 40 meq PO ONETIME ONE Stop: 04/12/20 08:19 Last Admin: 04/12/20 08:58 Dose: 40 meq Documented by: Rosuvastatin Calcium (Crestor) 40 mg PO DAILY [facility] Last Admin: 04/09/20 09:18 Dose: 40 mg Documented by:
== END 2020-04-13 15:00 | disposition home or self-care (01) | DRG 720 ==
LOC: JD.ED 23:03 → JD.MS 04-09 01:58 → OBSVTOIN 04-09 14:08
PROVIDERS: ADMIT Internal Medicine; ATTEND Internal Medicine
PROC: 8E0ZXY6 Isolation (ICD-10-PCS; principal; 2020-04-09)
DX: A41.51 Sepsis due to Escherichia coli [E. coli] (principal); U07.1 COVID-19; E11.65 Type 2 diabetes mellitus with hyperglycemia; N12 Tubulo-interstitial nephritis, not specified as acute or chronic; J12.82 Pneumonia due to coronavirus disease 2019; D64.9 Anemia, unspecified; R79.1 Abnormal coagulation profile; R74.8 Abnormal levels of other serum enzymes; E88.09 Other disorders of plasma-protein metabolism, not elsewhere classified; E66.9 Obesity, unspecified; F17.200 Nicotine dependence, unspecified, uncomplicated; R53.1 Weakness; E83.42 Hypomagnesemia; E83.51 Hypocalcemia; E78.5 Hyperlipidemia, unspecified; E55.9 Vitamin D deficiency, unspecified; E78.00 Pure hypercholesterolemia, unspecified; Z79.82 Long term (current) use of aspirin; Z79.4 Long term (current) use of insulin; Z79.899 Other long term (current) drug therapy; Z90.49 Acquired absence of other specified parts of digestive tract; Z68.29 Body mass index [BMI] 29.0-29.9, adult
CPT/HCPCS: 36415; 71046; 71046-26; 80048; 80053; 81001; 82306; 82728; 82962; 83605; 83615; 83735; 83880; 84145; 84439; 84443; 84484; 84703; 85007; 85025; 85027; 85379; 85652; 86140; 87040; 87070; 87086; 87088; 87186; 87486; 87581; 87633; 87798; 93005; 93010; 94760; 94761; 96365; 96368; 99232; 99238; 99285; 99285-25; 99291; A9270-GY; J0360; J1650; J1815-GY; J1956; J2060; J2405; J3475; J3490; J7030; J8540

== ENCOUNTER 2024-09-30 14:55 | Emergency (ER) | payer BC ==
[2024-09-30] MEDS ORDERED: Sodium Chloride 0.9% 10 ML Syringe FLUSH PRN (15:13)
[2024-09-30] MEDS: Ondansetron 4 MG/2 ML SDV IVPUSH ONE (15:40)
[2024-09-30 15:45] LABS: BASOPHILS ABSOLUTE AUTO 0.0 K/mm3 (0.0-0.2); BASOPHILS PERCENT AUTO 0.3 % (0.0-1.0); EOSINOPHILS ABSOLUTE AUTO 0.1 K/mm3 (0.0-0.4); EOSINOPHILS PERCENT AUTO 1.7 % (0.0-6.0); IMMATURE GRAN ABSOLUTE AUTO 0.02 K/mm3 (0.00-0.05); IMMATURE GRAN PERCENT AUTO 0.3 % (0.0-0.4); LYMPHOCYTES ABSOLUTE AUTO 1.0 K/mm3 (1.0-4.8); LYMPHOCYTES PERCENT AUTO 16.1 % (24.0-44.0); MEAN PLATELET VOLUME 9.4 fl (9.4-12.3); MONOCYTES ABSOLUTE AUTO 0.4 K/mm3 (0.0-0.8); MONOCYTES PERCENT AUTO 7.3 % (0.0-8.0); NEUTROPHILS ABSOLUTE AUTO 4.4 K/mm3 (1.8-7.7); NEUTROPHILS PERCENT AUTO 74.3 % (41.0-71.0); NRBC ABSOLUTE 0.00 (0.00-0.02); NRBC PERCENT 0.0 % (0.0-0.2); PLATELET COUNT,PLT 217 K/mm3 (150-400); RED BLOOD CELL COUNT 4.12 M/mm3 (4.10-5.30); WHITE BLOOD CELL COUNT,WBC 5.91 K/mm3 (3.9-11.3)
[2024-09-30 16:00] LABS: A/G RATIO 0.8 (1-2); ALANINE AMINOTRANSFERASE,ALT 26.0 U/L (14-59); ASPARTATE AMNIOTRANSFERASE,AST 31.0 U/L (15-37); BILIRUBIN TOTAL 0.8 mg/dL (0.2-1.0); BLOOD UREA NITROGEN,BUN 14.0 mg/dL (7-18); CARBON DIOXIDE,CO2 27.0 mEq/L (21-32); CHLORIDE,CL 101.0 mEq/L (98-107); CREATININE 1.4 mg/dL (0.55-1.02); EST CRCL DRUG DOSING (CG) 52.47 mL/min; ESTIMATED GFR 47.0 mL/min (>60); GLUCOSE RANDOM 252.0 mg/dL (70-99); POTASSIUM,K 4.2 mEq/L (3.5-5.1); PROTEIN TOTAL,TP 7.1 g/dl (6.4-8.2); SODIUM,NA 136.0 mEq/L (136-145)
== END 2024-09-30 16:51 | disposition home or self-care (01) ==
LOC: JD.ED 14:55
DX: J06.9 Acute upper respiratory infection, unspecified (principal); E78.00 Pure hypercholesterolemia, unspecified; I10 Essential (primary) hypertension; E11.9 Type 2 diabetes mellitus without complications; F17.210 Nicotine dependence, cigarettes, uncomplicated; Z79.84 Long term (current) use of oral hypoglycemic drugs; Z79.899 Other long term (current) drug therapy; Z79.4 Long term (current) use of insulin; Z90.49 Acquired absence of other specified parts of digestive tract
CPT/HCPCS: 36415; 71045; 80053; 83735; 85025; 87651; 96361; 96374; 99285; A9270; J2405; J7030

== ENCOUNTER 2024-10-20 17:09 | Emergency (ER) | payer BC | END 2024-10-20 18:36 | disposition home or self-care (01) | LOC: JD.ED 17:09 | DX: R53.1 Weakness (principal); M25.511 Pain in right shoulder; I10 Essential (primary) hypertension; E78.00 Pure hypercholesterolemia, unspecified; E11.9 Type 2 diabetes mellitus without complications; E66.9 Obesity, unspecified; Z79.84 Long term (current) use of oral hypoglycemic drugs; Z79.899 Other long term (current) drug therapy; Z79.4 Long term (current) use of insulin; Z68.27 Body mass index [BMI] 27.0-27.9, adult | CPT/HCPCS: 70450; 70450-26; 82947; 99283; 99285 ==